=== PATIENT | male | born 1955 | race Caucasian/White ===

== ENCOUNTER 2016-11-02 08:01 | Day surgery (SDC) | payer OTHER ==
[~2016-11-02 08:01] MED LIST: Pre Op ABX Message 1 EACH MISC MISCELLANE ONE
[2016-11-02 08:20] VITALS: TEMP 97.8
[2016-11-02] MEDS ORDERED: DEXAMETHASONE SOD PHOSPHATE 10 MG/ML 1 ML VIAL IV ONE (08:32)
[2016-11-02] MEDS ORDERED: MIDAZOLAM 2 MG/2 ML VIAL IV PRN (08:32)
[2016-11-02] MEDS ORDERED: SCOPOLAMINE 1.5MG/72HR PATCH TRANSDERM ONE (08:32)
[2016-11-02] MEDS ORDERED: ONDANSETRON 4 MG/2 ML VIAL IVP ONE (08:32)
[2016-11-02] MEDS ORDERED: LIDOCAINE 1% 20 ML VIAL (10MG/ML) FOR IV START INTRADERMA PRN (08:32)
[2016-11-02] MEDS ORDERED: HYDROmorphone 1 MG/ML 1 ML SYRINGE IVP PRN (08:32)
[2016-11-02] MEDS ORDERED: LACTATED RINGERS 1,000 ML IV SCH (08:32)
--- NOTE | 2016-11-02 08:59 | P.GSHP ---
History of Present Illness H&P Date: 11/02/16 Chief Complaint: Open wound status post drainage sebaceous cyst Patient is status post I&D of a sebaceous cyst on the posterior right shoulder. It has failed to close due to a large amount of wall of the sebaceous cyst and sebaceous material. - Constitutional Constitutional: Denies chills, Denies fever - EENT Eyes: denies blurred vision, denies pain Ears, nose, mouth and throat: Denies headache, Denies sore throat - Cardiovascular Cardiovascular: Denies chest pain, Denies edema, Denies orthopnea, Denies paroxysmal nocturnal dyspnea, Denies shortness of breath - Respiratory Respiratory: Reports cough, Denies hemoptysis - Gastrointestinal Gastrointestinal: Denies abdominal pain, Denies diarrhea, Denies nausea, Denies vomiting - Genitourinary (Female) Genitourinary: Denies dysuria, Denies hematuria - Genitourinary (Male) Genitourinary: Denies dysuria, Denies hematuria - Musculoskeletal Musculoskeletal: Denies myalgias - Integumentary Integumentary: Denies pruritus, Denies rash - Neurological Neurological: Denies numbness, Denies weakness - Psychiatric Psychiatric: Denies anxiety, Denies confusion, Denies depression, Denies hallucinations - Endocrine Endocrine: Denies fatigue, Denies weight change - Hematologic/Lymphatic Hematologic/Lymphatic: Denies easy bleeding, Denies easy bruising, Denies lymphedema - Allergic/Immunologic Allergic/Immunologic: Denies anaphylaxis, Denies angioedema, Denies urticaria Past Medical History Past Medical History: COPD Additional Past Medical History / Comment(s): neck abcess History of Any Multi-Drug Resistant Organisms: None Reported Past Surgical History: Orthopedic Surgery Additional Past Surgical History / Comment(s): left ankle orif,colonoscopy Past Anesthesia/Blood Transfusion Reactions: No Reported Reaction Past Psychological History: No Psychological Hx Reported Smoking Status: Current some day smoker Past Alcohol Use History: None Reported Past Drug Use History: None Reported Medications and Allergies Home Medications Medication Instructions Recorded Confirmed Type Albuterol Inhaler [Ventolin Hfa 1 - 2 puff INHALATION Q6HR PRN 09/16/16 History Inhaler] Albuterol Sulfate [Accuneb] 0.083 mg INHALATION BID 09/16/16 11/02/16 History Aspirin EC [Ecotrin Low Dose] 81 mg PO DAILY 09/16/16 11/02/16 History Flunisolide [Aerospan] 1 puff INHALATION BID 09/16/16 11/02/16 History Ipratropium Dolliver [Atrovent Hfa] 2 puff INHALATION QID 09/16/16 11/02/16 History Ipratropium Dolliver [Ipratropium 2 sprays EA NOSTRIL BID 09/16/16 11/02/16 History Dolliver 0.03%] Loratadine [Claritin] 10 mg PO DAILY 09/16/16 11/02/16 History Methocarbamol [Robaxin] 750 mg PO QID 09/16/16 11/02/16 History Naproxen 500 mg PO Q12HR 09/16/16 11/02/16 History Zolpidem [Ambien] 5 mg PO HS PRN 09/16/16 11/02/16 History Allergies Allergy/AdvReac Type Severity Reaction Status Date / Time No Known Allergies Allergy Verified 11/02/16 08:27 Surgical - Exam Osteopathic Statement: *. No significant issues noted on an osteopathic structural exam other than those noted in the History and Physical/Consult. Vital Signs Temp Pulse Resp BP Pulse Ox 97.8 F 90 18 131/76 89 L 11/02/16 08:18 11/02/16 08:18 11/02/16 08:18 11/02/16 08:18 11/02/16 08:18 - General well developed, well nourished, no distress - Eyes normal ocular movement, no icteric - ENT no hearing loss, no congestion - Neck no masses, trachea midline - Respiratory normal respiratory effort, clear to auscultation - Abdomen Abdomen: soft, non tender, no guarding, no rigid, no rebound - Integumentary On the posterior right shoulder at the base of the neck is an open wound about 2.5 x 1 cm with a dry base. no rash, no abnormal pigmentation - Neurologic no disoriented, no combative - Psychiatric oriented to time, oriented to person, oriented to place, speech is normal, memory intact Assessment and Plan Plan: Patient has an open ulceration secondary to infected sebaceous cyst drainage. We've discussed with him the options. It has been refractory to simple wound measures and we will excise the entire thing for primary closure. He appears to understand the procedure and risks and agrees to proceed.
[2016-11-02] MEDS ORDERED: MIDAZOLAM 2 MG/2 ML VIAL ONE (09:09)
[2016-11-02] MEDS ORDERED: LIDOCAINE 1% INJ 10MG/ML (20 ML MDV) ONE (09:09)
[2016-11-02] MEDS ORDERED: PROPOFOL 10 MG/ML 20 ML VIAL IV ONE (09:09)
[2016-11-02] MEDS ORDERED: fentaNYL (PF) 50 MCG/ML 2 ML AMP ONE (09:09)
[2016-11-02] MEDS ORDERED: KETAMINE 10 MG/ML 20 ML VIAL ONE (09:09)
[2016-11-02] MEDS ORDERED: LIDOCAINE 1% INJ 10MG/ML (20 ML MDV) SQ ONE ×2 (09:26)
[2016-11-02] MEDS ORDERED: BUPIVACAIN-EPI 0.25%-1:200,000 30 ML VIAL SQ ONE (09:34)
--- NOTE | 2016-11-02 09:54 | P.PCN ---
Date of Procedure: 11/02/16 Preoperative Diagnosis: Refractory sebaceous cyst Postoperative Diagnosis: Same Procedure(s) Performed: Excision of sebaceous cyst Anesthesia: MAC Surgeon: Brian Sidhu Estimated Blood Loss (ml): 20 Pathology: none sent Condition: stable Disposition: PACU Indications for Procedure: Patient had an I&D of a sebaceous cyst and his family doctor's office. In spite of aggressive wound measures we have not been able to get this to heal up. Operative Findings: We were able to excise the entire sebaceous cyst sac and surrounding inflammatory tissues Description of Procedure: With the patient lateral position, under benefit of IV sedation, we prepped and draped in standard fashion. We anesthetized with 1% lidocaine. We made an elliptical incision about 5 x 2.5 cm and about 0.8 cm in depth. We excised the entire for inflammatory process. We achieved hemostasis with electrocautery. We closed the wound with interrupted vertical mattress sutures with 4-0 nylon. Sterile dressings were applied. The patient tolerated the procedure well and was taken recovery area in stable vision.
[2016-11-02 10:30] VITALS: BP 108/71; PULSE 87; RESP 20
== END 2016-11-02 10:34 | disposition home or self-care (01) ==
LOC: OR 08:01
PROVIDERS: ATTEND Thoracic Surgery (Cardiothoracic Vascular Surgery)
DX: L72.3 Sebaceous cyst (principal); J44.9 Chronic obstructive pulmonary disease, unspecified; Z79.82 Long term (current) use of aspirin; Z79.51 Long term (current) use of inhaled steroids; Z79.899 Other long term (current) drug therapy; Z99.81 Dependence on supplemental oxygen
CPT/HCPCS: 11406; J2250; J2001; J3010; J2704

== ENCOUNTER → 2017-01-15 | Outpatient (CLI) | payer OTHER ==
--- NOTE | 2017-01-16 09:00 | CT ---
EXAMINATION TYPE: CT abdomen pelvis w con DATE OF EXAM: 01/15/2017 COMPARISON: NONE HISTORY: Diarrhea and blood in stool x2 months. CT DLP: 453.7 mGycm Automated exposure control for dose reduction was used. CONTRAST: CT scan of the abdomen pelvis is performed with IV Contrast, patient injected with 100 mL of Omnipaqu e 300. FINDINGS- LUNG BASES- No significant abnormality is appreciated. Correlate for COPD LIVER/GB- No gross abnormality is appreciated. PANCREAS-in the peripancreatic region there is a low-attenuation 2 cm lesion with peripheral calcific ation. This could relate to mesenteric or pancreatic cyst. Appears separate from the vasculature alth ough a thrombosed aneurysm not excluded. SPLEEN- No gross abnormality is seen. ADRENALS- No gross abnormality is seen. KIDNEYS/BLADDER- no hydronephrosis or nephrolithiasis. Less than 1 cm hypodense lesion right kidney t oo small to characterize but likely related to simple cyst. Bladder wall thickened.. BOWEL- no bowel dilatation. Normal appendix. Diverticulosis of the colon. Mild wall thickening invo lving the transverse colon with associated with a mild colitis. LYMPH NODES- No greater than 1cm abdominal or pelvic lymph nodes are appreciated. OSSEOUS STRUCTURES-hypertrophic change of the spine seen. Disc bulging L4-L5 appears resulting canal stenosis. Left paracentral herniation not excluded. OTHER- prostate is prominent and appears to demonstrate areas of calcification. IMPRESSION- 1. Mild wall thickening transverse colon with no definite inflammatory change. This could related to incomplete distention rather than a mild colitis. Correlate clinically. If there is concern for mucos al lesion then consider direct visualization 2. Low density well-circumscribed lesion within the peripancreatic region measures 31 Houn[address]field unit s. Differential diagnosis would include a mesenteric mass or thrombosed aneurysm. Low density adenopa thy less likely consideration recommend follow-up MRI. 3. Disc bulging L4-L5 with possible herniation canal stenosis. 4. Bladder wall thickening correlate for mild chronic cystitis
== END | disposition home or self-care (01) ==
LOC: RADCTMAIN 17:01
PROVIDERS: ATTEND Family Medicine
DX: K86.89 Other specified diseases of pancreas (principal); N32.89 Other specified disorders of bladder; K63.89 Other specified diseases of intestine
CPT/HCPCS: 74177; Q9967

== ENCOUNTER 2017-01-28 10:37 | Day surgery (SDC) | payer OTHER ==
[2017-01-28] MEDS ORDERED: LACTATED RINGERS 1,000 ML IV SCH (11:24)
[2017-01-28 11:31] VITALS: RESP 16; TEMP 97.7
[2017-01-28] MEDS ORDERED: LIDOCAINE 1% INJ 10MG/ML (20 ML MDV) ONE (11:50)
[2017-01-28] MEDS ORDERED: PROPOFOL 10 MG/ML 20 ML VIAL IV ONE (11:50)
--- NOTE | 2017-01-28 12:49 | P.PCN ---
Date of Procedure: 01/28/17 Preoperative Diagnosis: Postoperative Diagnosis: Procedure(s) Performed: Procedure: 1. Esophagogastroduodenoscopy and biopsy. 2. Colonoscopy and biopsy and polypectomy. Preoperative diagnosis: Diarrhea and blood in the stools. Postoperative diagnosis: 1. Small sliding hiatal hernia with LA grade A distal esophagitis. 2. Mild antral gastritis. 3. Sigmoid diverticulosis with no evidence of acute diverticulitis or strictures. 4. Sigmoid polyp snared but no large polyps or cancer.. Preparation: HalfLytely prep. Sedation: Was provided by anesthesia. Brief clinical history: The patient is a 61-year-old male who is scheduled for this evaluation because of onset of diarrhea within the last 2-3 months with finding of blood in his stools. This evaluation is to assess for inflammatory conditions or neoplasia. Procedure: With the patient on his left lateral decubitus position and after informed consent and adequate sedation, I passed the Olympus-GIF 160 video upper endoscope through the cricopharyngeus down the esophagus. GE junction was around 42-43 cm from the incisors and there was a small sliding hiatal hernia. The distal esophagus showed low-grade esophagitis but no strictures or Warner's esophagus. The endoscope was then passed into the stomach which was insufflated with air and inspected in detail including the retroflex view in the cardia. There was some mottling and erythema in the antrum but no ulcers or erosions. Pyloric channel, duodenal bulb, post bulbar area and descending duodenum appeared within normal limits. Because of his symptoms, I obtained biopsies from the duodenum, antrum and esophagus then the endoscope was withdrawn and I proceeded with the colonoscopy. Perianal area did not show any fissures or fistulas. There were no masses felt on digital rectal examination. The Olympus CFQ 160L video colonoscope was then inserted in the rectum in the usual fashion and advanced to the cecum. There were several diverticular orifices seen scattered in the sigmoid with no evidence of acute diverticulitis or strictures. There was a 1.5 cm polyp in the sigmoid which was snared and retrieved by suction but there were no large polyps or cancer. The mucosa appeared healthy. I obtained biopsies in the right colon to rule out microscopic colitis. I retroflexed the endoscope in the rectum before the endoscope was withdrawn. Low-grade internal hemorrhoids were noted and there was no evidence of bleeding. The patient tolerated the procedure well. Plan: The patient was reassured. Will await pathology results. I anticipate repeating his colonoscopy in 3 years. Further plans will be made based on his course. I will keep you updated on his progress. Implants: Indications for Procedure: Operative Findings: Description of Procedure:
[2017-01-28 12:59] VITALS: BP 127/80; PULSE 83
== END 2017-01-28 13:18 | disposition home or self-care (01) ==
LOC: ORWHC2ENDO 10:37
DX: D12.5 Benign neoplasm of sigmoid colon (principal); K29.50 Unspecified chronic gastritis without bleeding; K20.9 Esophagitis, unspecified; K44.9 Diaphragmatic hernia without obstruction or gangrene; K64.8 Other hemorrhoids; K57.30 Diverticulosis of large intestine without perforation or abscess without bleeding; J44.9 Chronic obstructive pulmonary disease, unspecified; Z72.0 Tobacco use; Z79.82 Long term (current) use of aspirin; Z79.1 Long term (current) use of non-steroidal anti-inflammatories (NSAID); Z79.899 Other long term (current) drug therapy
CPT/HCPCS: 88305; 88342; 45380; 45385; 43239; J2001; J2704

== ENCOUNTER → 2017-02-25 | Outpatient (CLI) | payer OTHER ==
--- NOTE | 2017-02-25 16:25 | MR ---
MR abdomen with and without contrast HISTORY: Abnormal CT abdomen pelvis, abdominal mass Multiplanar multisequence and postcontrast images through the abdomen following 15 cc MultiHance IV Correlation to CT scan 01/15/2017 The low-attenuation mass with peripheral calcification seen on the CT scan is again noted adjacent to the body of the pancreas as well as splenic artery and vein, medial to the lesser curve of the stoma ch. The lesion measures approximately 2.7 cm. The lesion shows intermediate signal on T1-weighted hero ges, T2-weighted images. There is no abnormal enhancement following contrast administration. The liver is at the upper limit of normal for size. Signal drop on out of phase images suggests under lying fatty infiltration. There is no ascites. Small cortical cysts are associated with the right kid abril. There is no hydronephrosis bilaterally. Adrenal glands are unremarkable. Spleen is normal. The p ancreas shows no mass or ductal dilatation. Gallbladder is normal. No retroperitoneal adenopathy. Aor ta shows normal caliber. IMPRESSION: There is no enhancement of the previously described mass within the abdomen to suggest an eurysm. Differential diagnostic considerations include mesenteric cyst, thrombosed aneurysm or possi valentino pancreatic pseudocyst.
== END ==
LOC: RADMRIMAIN 14:51
PROVIDERS: ATTEND Internal Medicine Hematology & Oncology
DX: E16.9 Disorder of pancreatic internal secretion, unspecified (principal)
CPT/HCPCS: 74183; A9577

== ENCOUNTER → 2017-03-22 | Outpatient (CLI) | payer OTHER ==
--- NOTE | 2017-03-23 07:21 | US ---
EXAMINATION TYPE: US bladder DATE OF EXAM: 03/22/2017 COMPARISON: NONE CLINICAL HISTORY: R35.1 Nocturia. Patient gets up 3-4 times at night EXAM MEASUREMENTS: Post Void Residual Volume: 9 mL Color Doppler performed to assess ureteral jets. Bilateral Jets seen: Yes Normal Post Void Residual (less than 50ml): yes No evidence of bladder wall thickening. Mild prostate gland enlargement. IMPRESSION: No distinct abnormality of the urinary bladder. Mild prostate glandular enlargement.
== END | disposition home or self-care (01) ==
LOC: RADUSWWP 16:20
PROVIDERS: ATTEND Family Medicine
DX: N40.0 Benign prostatic hyperplasia without lower urinary tract symptoms (principal)
CPT/HCPCS: 76857

== ENCOUNTER → 2018-12-13 | Outpatient (CLI) | payer OTHER ==
--- NOTE | 2018-12-13 13:04 | EST ---
EXERCISE STRESS DATE OF SERVICE: 12/13/2018 AGE: 63 SEX: Male HT: 71 WT: 155 PROTOCOL: Jaden STAGE: I DURATION OF EXERCISE: 2 minutes HEART RATE REST: 80 BLOOD PRESSURE REST: 136/87 MAXIMUM HEART RATE ACHIEVED: 115 MAXIMUM BLOOD PRESSURE: 185/94 85% MPHR: 135 100% MPHR: 159 METS: 2.4 INDICATIONS: Chest pain, shortness of breath. CLINICAL INFORMATION: Patient was exercised for a total period of 2 minutes. The test was terminated because patient got short of breath. Peak heart rate of 115 was achieved, which is equivalent to less than 75% of the age predicted heart rate. Resting EKG shows normal sinus rhythm with normal NJ interval and QRS duration and normal ST-T waves. No ST-segment depression suggestive of ischemia was noted. FINAL IMPRESSION: This exercise test is inconclusive to diagnose ischemia because patient exercised for less than 2 minutes. Peak heart rate of only [address]-segment change suggestive of ischemia was noted. MMODL / IJN: [id number] /
== END | disposition home or self-care (01) ==
LOC: RADNMMAIN 08:42
PROVIDERS: ATTEND Family Medicine
DX: R07.9 Chest pain, unspecified (principal)
CPT/HCPCS: 93017

== ENCOUNTER → 2019-05-09 | Outpatient (CLI) | payer OTHER ==
--- NOTE | 2019-05-09 16:13 | CT ---
EXAMINATION TYPE: CT chest wo con DATE OF EXAM: 05/09/2019 COMPARISON: None HISTORY: History of smoking, hemoptysis CT DLP: 335.9 mGycm. Automated Exposure Control for Dose Reduction was Utilized. TECHNIQUE: CT scan of the thorax is performed without IV contrast. FINDINGS: Lack of intravenous contrast could compromise sensitivity. LUNGS: Extensive centrilobular and paraseptal emphysematous changes are present. There is a soft tiss ue mass in the right lower lobe present on axial image #41 which show some associated spiculated aurelio in with extension is to the pleural surface, air bronchogram and soft tissue extending towards the ri ght hilum. The lesion measures approximately 3.5 x 1.1 x 2.2 cm. Apical bullous changes are present. There is no pleural effusion or pneumothorax seen. The tracheobronchial tree is patent. MEDIASTINUM: Lack of IV contrast is noted to limit evaluation for mediastinal and especially hilar ad enopathy. There are no definitive greater than 1 cm hilar or mediastinal lymph nodes. No cardiomega ly or pericardial effusion is seen. Prominence of the pulmonary artery could be due to pulmonary ana laura ry hypertension. There are some coronary artery calcification suspected. OTHER: Multilevel fibrosis in the thoracic spine. At the posterior margin of the pancreas is slightly cephalad along the region of the lesser curvature stomach there is a curvilinear focus of calcificat ion surrounding a soft tissue focus measuring approximately 2.6 cm in size. IMPRESSION: Findings suspicious for bronchogenic carcinoma. Extensive emphysematous change. Possible splenic artery aneurysm. Noncontrast exam. Coronary artery disease. Possible pulmonary artery hyperte nsion.
== END | disposition home or self-care (01) ==
LOC: RADCTMAIN 11:28
PROVIDERS: ATTEND Family Medicine
DX: I25.10 Atherosclerotic heart disease of native coronary artery without angina pectoris (principal); F17.210 Nicotine dependence, cigarettes, uncomplicated
CPT/HCPCS: 71250

== ENCOUNTER 2019-06-08 08:57 | Day surgery (SDC) | payer OTHER ==
[2019-06-08] MEDS ORDERED: ALPRAZolam 0.5 MG TAB PO STA (09:31)
[2019-06-08 09:41] LABS: Mean Platelet Volume 6.5; Platelet Count 219 k/uL (150-450)
[2019-06-08 09:52] VITALS: PULSE 91; TEMP 97.8
[2019-06-08 09:57] LABS: INR 0.8 (<1.2); Prothrombin Time 9.3 sec (9.0-12.0)
[2019-06-08 10:18] VITALS: RESP 20
[2019-06-08 10:28] VITALS: BP 119/72
--- NOTE | 2019-06-08 11:23 | CT ---
EXAMINATION TYPE: CT discontinued procedure DATE OF EXAM: 06/08/2019 COMPARISON: CT 05/09/2019 HISTORY: Lung mass CT DLP: 214 mGycm Automated exposure control for dose reduction was used. FINDINGS: Maximal barrier technique was utilized. The skin overlying a suitable path to the lesion in the right lower lobe was localized with CT and the overlying skin prepped and draped. Lidocaine used for local anesthesia. 25-gauge needle was advanced to the level of the mass and obstructed by the overlying ri b, underlying lesion not directly accessible. IMPRESSION: ATTEMPTED LUNG BIOPSY DESCRIBED. REPEAT CHEST CT AT SHORT INTERVAL TO ASSESS FOR REPEAT ATTEMPT.
== END 2019-06-08 10:55 | disposition home or self-care (01) ==
LOC: RADPROMAIN 08:57
PROVIDERS: ATTEND Internal Medicine Pulmonary Disease
DX: R91.8 Other nonspecific abnormal finding of lung field (principal)
CPT/HCPCS: 36415; 76380; 85049; 85610

== ENCOUNTER → 2019-06-09 | Outpatient (CLI) | payer OTHER ==
--- NOTE | 2019-06-13 11:14 | PE ---
Nuclear medicine PET/CT HISTORY: Solitary pulmonary nodule, initial Patient received 12.4 mCi F-18 FDG intravenously in delayed scanning was performed the skull base to the mid thighs. Localization and attenuation correction CT scan were performed. Correlation to prior chest CT 05/09/2019, CT abdomen pelvis 01/15/2017 Neck and chest: There is no cervical, supraclavicular, axillary or mediastinal adenopathy. Only mild uptake in the right hilum, SUV 1.9-2 which is essentially symmetric. Coronary artery calcification is noted. There is extensive emphysematous change within the lungs. The nodular density in the right lo wer lobe which extends to the pleural surface in is again seen shows a similar configuration, SUV 3.6 . There is some local abnormal soft tissue in the superior segment of the right lower lobe which is n ot seen on prior exam measuring approximately 1.7 cm., SUV 6.7. Mild hypermetabolic uptake is present associated with the abnormal soft tissue in the right lower lobe, SUV is. Some probable basilar atel ectatic changes are present. No evident pleural or pericardial effusion. ABDOMEN: There is no adrenal mass. No liver mass. No retroperitoneal adenopathy or suspicious hyperme tabolic uptake. There is no ascites. Prostate is remarkable for some associated calcification. Urinar y bladder shows a thickened wall and is not distended but shows some questionable nondependent lucenc y, correlate for possible history of instrumentation. No pelvic adenopathy. Osseous structures show no suspicious abnormality, no suspicious hypermetabolic uptake. IMPRESSION: There is abnormal uptake associated with the superior segment right lower lobe, abnormal density seen on prior CT which has changed somewhat in configuration as described. Hypermetabolic upt nadira at the site of patient's previously described wedge-shaped focus in the right lower lobe. Extensi ve emphysema.
== END ==
LOC: RADPETMAIN 14:54
PROVIDERS: ATTEND Internal Medicine Pulmonary Disease
DX: R91.1 Solitary pulmonary nodule (principal); J43.9 Emphysema, unspecified
CPT/HCPCS: 78815; A9552

== ENCOUNTER 2020-11-04 18:53 | Observation (INO) | payer OTHER ==
[2020-11-04 21:15] LABS: Basophils % (A) 1 %; Eosinophils # (A) 0.1 k/uL (0-0.7); Eosinophils % (A) 2 %; HCT 38.7 % (39.0-53.0); HGB 12.8 gm/dL (13.0-17.5); Lymphocytes # (A) 1.1 k/uL (1.0-4.8); Lymphocytes % (A) 17 %; MCH 30.7 pg (25.0-35.0); MCHC 33.1 g/dL (31.0-37.0); MCV 92.8 fL (80.0-100.0); Mean Platelet Volume 7.1; Monocytes # (A) 0.3 k/uL (0-1.0); Monocytes % (A) 5 %; Neutrophils # (A) 4.4 k/uL (1.3-7.7); Neutrophils % (A) 72 %; Platelet Count 223 k/uL (150-450); RBC 4.17 m/uL (4.30-5.90); RDW 12.5 % (11.5-15.5); WBC 6.1 k/uL (3.8-10.6)
[2020-11-04 21:23] LABS: ALT 16 U/L (4-49); AST 31 U/L (17-59); African American GFR (CKD) >90 (>60 ml/min/1.73 sqM); Albumin 4.6 g/dL (3.5-5.0); Alkaline Phosphatase 73 U/L (38-126); Anion Gap 10 mmol/L; Blood Urea Nitrogen 7 mg/dL (9-20); Calcium 9.3 mg/dL (8.4-10.2); Carbon Dioxide 29 mmol/L (22-30); Chloride 96 mmol/L (98-107); Glucose 96 mg/dL (74-99); INR 0.9 (<1.2); Non-African American GFR(CKD) >90 (>60 ml/min/1.73 sqM); Partial Thromboplastin Time 22.2 sec (22.0-30.0); Potassium 4.2 mmol/L (3.5-5.1); Prothrombin Time 9.6 sec (9.0-12.0); Sodium 135 mmol/L (137-145); Total Bilirubin 0.4 mg/dL (0.2-1.3); Total Protein 7.2 g/dL (6.3-8.2)
[2020-11-04] MEDS ORDERED: HYDROcodone/APAP 5-325MG 1 EACH TAB PO STA (21:49)
--- NOTE | 2020-11-04 21:53 | ED ---
General Adult HPI - General Chief complaint: Shortness of Breath Stated complaint: SOB Time Seen by Provider: 11/04/20 21:35 Source: patient, RN notes reviewed Mode of arrival: wheelchair Limitations: no limitations - History of Present Illness Initial comments: 65-year-old white male patient presents to the emergency room with shortness of breath 4 days, patient on home O2 at three quarters of a liter for COPD. Patient has a surgical history of plates and pins in his left ankle from fx 5 years ago. 14 days ago patient fell through a hole in the floor at home injuring his lower leg and ankle again. Patient has laceration/abrasion on the front of his left lower leg that is painful and oozing. States he thinks he broke his leg, painful to walk and bear weight and has been increasingly red and swollen. -: days(s) (4) Radiation: back, neck Severity scale (1-10): 8 Quality: other (throbbing, shooting) Consistency: constant Improves with: none Worsens with: movement Associated Symptoms: headaches, shortness of breath, weakness Treatments Prior to Arrival: other (home oxygen) - Related Data Home Medications Medication Instructions Recorded Confirmed Albuterol Inhaler (Mhu) [Ventolin 1 - 2 puff INHALATION Q6HR PRN 09/16/16 06/08/19 Hfa Inhaler] Albuterol Sulfate [Accuneb] 0.083 mg INHALATION BID 09/16/16 06/08/19 Aspirin EC [Ecotrin Low Dose] 81 mg PO DAILY 09/16/16 06/08/19 Ipratropium [place] [Atrovent Hfa] 2 puff INHALATION QID 09/16/16 06/08/19 methocarbamoL [Robaxin] 750 mg PO DAILY 09/16/16 06/08/19 Doxazosin [Cardura] 1 mg PO DAILY 06/01/19 06/08/19 Ibuprofen 1,600 mg PO DAILY 06/01/19 06/08/19 Salmeterol Xinafoate [Serevent 50 mcg IH BID 06/01/19 06/08/19 Diskus] buPROPion HCL [Wellbutrin XL] 150 mg PO DAILY 06/01/19 06/08/19 predniSONE 10 mg PO DAILY 06/01/19 06/08/19 Allergies Allergy/AdvReac Type Severity Reaction Status Date / Time No Known Allergies Allergy Verified 11/04/20 20:44 Review of Systems ROS Statement: Those systems with pertinent positive or pertinent negative responses have been documented in the HPI. ROS Other: All systems not noted in ROS Statement are negative. Past Medical History Past Medical History: COPD Additional Past Medical History / Comment(s): neck abcess, back pain History of Any Multi-Drug Resistant Organisms: None Reported Past Surgical History: Orthopedic Surgery Additional Past Surgical History / Comment(s): left ankle orif,colonoscopy, lj eduled for lung biopsy Past Anesthesia/Blood Transfusion Reactions: No Reported Reaction Past Psychological History: No Psychological Hx Reported Smoking Status: Former smoker Past Alcohol Use History: Daily Past Drug Use History: None Reported - Past Family History Mother Family Medical History: Cancer Additional Family Medical History / Comment(s): MOTHER HAD COLON CANCER General Exam Limitations: no limitations, physical limitation (limited mobility r/t left leg pain and swelling) General appearance: alert, in no apparent distress Head exam: Present: normocephalic, normal inspection Eye exam: Present: EOMI (left pupil dilated 8mm, right 2mm. Injury to left pupil from head injury years ago) Pupils: Present: unequal ENT exam: Present: normal exam, normal oropharynx, mucous membranes moist Neck exam: Present: normal inspection, full ROM. Absent: tenderness, meningismus, lymphadenopathy, thyromegaly Respiratory exam: Present: normal lung sounds bilaterally. Absent: respiratory distress, wheezes, rales, rhonchi, stridor, chest wall tenderness Cardiovascular Exam: Present: regular rate, normal rhythm, normal heart sounds. Absent: systolic murmur, diastolic murmur, rubs, gallop, clicks GI/Abdominal exam: Present: distended, normal bowel sounds, hernia (midline ). Absent: tenderness, guarding, rebound, rigid Extremities exam: Present: tenderness, normal capillary refill, pedal edema, joint swelling (left ankle swelling), other (left lower leg cellulitis, swelling and edema, approx 9cm abrasion with top 3cm open laceration with purulent drainage ). Absent: normal inspection Left Knee exam: Present: ecchymosis (purulent bakre drainage, cellulitis mid lower leg to foot) Lower Leg exam: Present: tenderness, swelling, laceration, erythema. Absent: deformity, Homans' sign Back exam: Present: normal inspection. Absent: tenderness, CVA tenderness (R), CVA tenderness (L) Neurological exam: Present: alert, oriented X3 Psychiatric exam: Present: normal affect, normal mood Skin exam: Present: warm, dry, intact, normal color. Absent: rash, cyanosis, diaphoretic Course Vital Signs 11/04/20 11/04/20 11/04/20 20:45 21:48 22:48 Temperature 98.1 F Pulse Rate 94 87 84 Respiratory 24 18 18 Rate Blood Pressure 155/90 142/101 156/96 O2 Sat by Pulse 98 94 L 94 L Oximetry 11/04/20 23:28 Temperature Pulse Rate 82 Respiratory 18 Rate Blood Pressure 113/78 O2 Sat by Pulse 94 L Oximetry Medical Decision Making - Medical Decision Making wound with purulent drainage to the left lower leg from fall 14 days ago, cellulitis from mid lower leg to foot WBC count 6.1, x-ray negative for fracture, hardware intact. Will admit patient for IV antibiotics to Dr. Warren. Chest x-ray shows heart normal size, minimal atelectasis to the left lower lobe. Troponin is negative at 0.012. - Lab Data Result diagrams: 11/04/20 21:58 11/04/20 21:58 Lab Results 11/04/20 11/04/20 11/04/20 Range/Units 20:55 20:55 20:55 WBC 6.1 (3.8-10.6) k/uL RBC 4.17 L (4.30-5.90) m/uL Hgb 12.8 L (13.0-17.5) gm/dL Hct 38.7 L (39.0-53.0) % MCV 92.8 (80.0-100.0) fL MCH 30.7 (25.0-35.0) pg MCHC 33.1 (31.0-37.0) g/dL RDW 12.5 (11.5-15.5) % Plt Count 223 (150-450) k/uL MPV 7.1 Neutrophils % 72 % Lymphocytes % 17 % Monocytes % 5 % Eosinophils % 2 % Basophils % 1 % Neutrophils # 4.4 (1.3-7.7) k/uL Lymphocytes # 1.1 (1.0-4.8) k/uL Monocytes # 0.3 (0-1.0) k/uL Eosinophils # 0.1 (0-0.7) k/uL Basophils # 0.0 (0-0.2) k/uL PT 9.6 (9.0-12.0) sec INR 0.9 (<1.2) APTT 22.2 (22.0-30.0) sec Sodium 135 L (137-145) mmol/L Potassium 4.2 (3.5-5.1) mmol/L Chloride 96 L (98-107) mmol/L Carbon Dioxide 29 (22-30) mmol/L Anion Gap 10 mmol/L BUN 7 L (9-20) mg/dL Creatinine 0.62 L (0.66-1.25) mg/dL Est GFR (CKD-EPI)AfAm >90 (>60 ml/min/1.73 sqM) Est GFR (CKD-EPI)NonAf >90 (>60 ml/min/1.73 sqM) Glucose 96 (74-99) mg/dL Plasma Lactic Acid Adrien (0.7-2.0) mmol/L Calcium 9.3 (8.4-10.2) mg/dL Magnesium (1.6-2.3) mg/dL Total Bilirubin 0.4 (0.2-1.3) mg/dL AST 31 (17-59) U/L ALT 16 (4-49) U/L Alkaline Phosphatase 73 (38-126) U/L Troponin I (0.000-0.034) ng/mL NT-Pro-B Natriuret Pep pg/mL Total Protein 7.2 (6.3-8.2) g/dL Albumin 4.6 (3.5-5.0) g/dL 11/04/20 11/04/20 11/04/20 Range/Units 20:55 20:55 21:58 WBC 5.9 (3.8-10.6) k/uL RBC 4.09 L (4.30-5.90) m/uL Hgb 12.8 L (13.0-17.5) gm/dL Hct 37.9 L (39.0-53.0) % MCV 92.6 (80.0-100.0) fL MCH 31.3 (25.0-35.0) pg MCHC 33.8 (31.0-37.0) g/dL RDW 12.5 (11.5-15.5) % Plt Count 221 (150-450) k/uL MPV 6.9 Neutrophils % 71 % Lymphocytes % 18 % Monocytes % 6 % Eosinophils % 3 % Basophils % 1 % Neutrophils # 4.2 (1.3-7.7) k/uL Lymphocytes # 1.1 (1.0-4.8) k/uL Monocytes # 0.3 (0-1.0) k/uL Eosinophils # 0.2 (0-0.7) k/uL Basophils # 0.0 (0-0.2) k/uL PT (9.0-12.0) sec INR (<1.2) APTT (22.0-30.0) sec Sodium (137-145) mmol/L Potassium (3.5-5.1) mmol/L Chloride (98-107) mmol/L Carbon Dioxide (22-30) mmol/L Anion Gap mmol/L BUN (9-20) mg/dL Creatinine (0.66-1.25) mg/dL Est GFR (CKD-EPI)AfAm (>60 ml/min/1.73 sqM) Est GFR (CKD-EPI)NonAf (>60 ml/min/1.73 sqM) Glucose (74-99) mg/dL Plasma Lactic Acid Adrien 1.5 (0.7-2.0) mmol/L Calcium (8.4-10.2) mg/dL Magnesium (1.6-2.3) mg/dL Total Bilirubin (0.2-1.3) mg/dL AST (17-59) U/L ALT (4-49) U/L Alkaline Phosphatase (38-126) U/L Troponin I <0.012 (0.000-0.034) ng/mL NT-Pro-B Natriuret Pep pg/mL Total Protein (6.3-8.2) g/dL Albumin (3.5-5.0) g/dL 11/04/20 11/04/20 11/04/20 Range/Units 21:58 21:58 21:58 WBC (3.8-10.6) k/uL RBC (4.30-5.90) m/uL Hgb (13.0-17.5) gm/dL Hct (39.0-53.0) % MCV (80.0-100.0) fL MCH (25.0-35.0) pg MCHC (31.0-37.0) g/dL RDW (11.5-15.5) % Plt Count (150-450) k/uL MPV Neutrophils % % Lymphocytes % % Monocytes % % Eosinophils % % Basophils % % Neutrophils # (1.3-7.7) k/uL Lymphocytes # (1.0-4.8) k/uL Monocytes # (0-1.0) k/uL Eosinophils # (0-0.7) k/uL Basophils # (0-0.2) k/uL PT 10.0 (9.0-12.0) sec INR 0.9 (<1.2) APTT 23.5 (22.0-30.0) sec Sodium 135 L (137-145) mmol/L Potassium 4.2 (3.5-5.1) mmol/L Chloride 97 L (98-107) mmol/L Carbon Dioxide 28 (22-30) mmol/L Anion Gap 10 mmol/L BUN 7 L (9-20) mg/dL Creatinine 0.61 L (0.66-1.25) mg/dL Est GFR (CKD-EPI)AfAm >90 (>60 ml/min/1.73 sqM) Est GFR (CKD-EPI)NonAf >90 (>60 ml/min/1.73 sqM) Glucose 90 (74-99) mg/dL Plasma Lactic Acid Adrien 1.4 (0.7-2.0) mmol/L Calcium 9.3 (8.4-10.2) mg/dL Magnesium 1.9 (1.6-2.3) mg/dL Total Bilirubin 0.4 (0.2-1.3) mg/dL AST 31 (17-59) U/L ALT 15 (4-49) U/L Alkaline Phosphatase 73 (38-126) U/L Troponin I (0.000-0.034) ng/mL NT-Pro-B Natriuret Pep pg/mL Total Protein 7.1 (6.3-8.2) g/dL Albumin 4.4 (3.5-5.0) g/dL 11/04/20 11/04/20 Range/Units 21:58 21:58 WBC (3.8-10.6) k/uL RBC (4.30-5.90) m/uL Hgb (13.0-17.5) gm/dL Hct (39.0-53.0) % MCV (80.0-100.0) fL MCH (25.0-35.0) pg MCHC (31.0-37.0) g/dL RDW (11.5-15.5) % Plt Count (150-450) k/uL MPV Neutrophils % % Lymphocytes % % Monocytes % % Eosinophils % % Basophils % % Neutrophils # (1.3-7.7) k/uL Lymphocytes # (1.0-4.8) k/uL Monocytes # (0-1.0) k/uL Eosinophils # (0-0.7) k/uL Basophils # (0-0.2) k/uL PT (9.0-12.0) sec INR (<1.2) APTT (22.0-30.0) sec Sodium (137-145) mmol/L Potassium (3.5-5.1) mmol/L Chloride (98-107) mmol/L Carbon Dioxide (22-30) mmol/L Anion Gap mmol/L BUN (9-20) mg/dL Creatinine (0.66-1.25) mg/dL Est GFR (CKD-EPI)AfAm (>60 ml/min/1.73 sqM) Est GFR (CKD-EPI)NonAf (>60 ml/min/1.73 sqM) Glucose (74-99) mg/dL Plasma Lactic Acid Adrien (0.7-2.0) mmol/L Calcium (8.4-10.2) mg/dL Magnesium (1.6-2.3) mg/dL Total Bilirubin (0.2-1.3) mg/dL AST (17-59) U/L ALT (4-49) U/L Alkaline Phosphatase (38-126) U/L Troponin I <0.012 (0.000-0.034) ng/mL NT-Pro-B Natriuret Pep 123 pg/mL Total Protein (6.3-8.2) g/dL Albumin (3.5-5.0) g/dL - EKG Data EKG shows normal: sinus rhythm, intervals (Ventricular rate of 89, ND interval 0.13, QRS 0.10, QTC 0.479) Disposition Clinical Impression: Cellulitis of leg, left, COPD exacerbation Disposition: ADMITTED IP TO THIS HOSP Condition: Fair Referrals: Sunil Warren MD [Primary Care Provider] - 1-2 days Decision Date: 11/04/20 Decision Time: 23:16
[2020-11-04 22:08] LABS: Basophils % (A) 1 %; Eosinophils # (A) 0.2 k/uL (0-0.7); Eosinophils % (A) 3 %; HCT 37.9 % (39.0-53.0); HGB 12.8 gm/dL (13.0-17.5); Lymphocytes # (A) 1.1 k/uL (1.0-4.8); Lymphocytes % (A) 18 %; MCH 31.3 pg (25.0-35.0); MCHC 33.8 g/dL (31.0-37.0); MCV 92.6 fL (80.0-100.0); Mean Platelet Volume 6.9; Monocytes # (A) 0.3 k/uL (0-1.0); Monocytes % (A) 6 %; Neutrophils # (A) 4.2 k/uL (1.3-7.7); Neutrophils % (A) 71 %; Platelet Count 221 k/uL (150-450); RBC 4.09 m/uL (4.30-5.90); RDW 12.5 % (11.5-15.5); WBC 5.9 k/uL (3.8-10.6)
[2020-11-04 22:17] LABS: ALT 15 U/L (4-49); AST 31 U/L (17-59); African American GFR (CKD) >90 (>60 ml/min/1.73 sqM); Albumin 4.4 g/dL (3.5-5.0); Alkaline Phosphatase 73 U/L (38-126); Anion Gap 10 mmol/L; Blood Urea Nitrogen 7 mg/dL (9-20); Calcium 9.3 mg/dL (8.4-10.2); Carbon Dioxide 28 mmol/L (22-30); Chloride 97 mmol/L (98-107); Glucose 90 mg/dL (74-99); Magnesium 1.9 mg/dL (1.6-2.3); Non-African American GFR(CKD) >90 (>60 ml/min/1.73 sqM); Potassium 4.2 mmol/L (3.5-5.1); Sodium 135 mmol/L (137-145); Total Bilirubin 0.4 mg/dL (0.2-1.3); Total Protein 7.1 g/dL (6.3-8.2)
[2020-11-04 22:28] LABS: INR 0.9 (<1.2); Partial Thromboplastin Time 23.5 sec (22.0-30.0)
--- NOTE | 2020-11-04 22:29 | XR ---
EXAMINATION TYPE: XR chest 2V DATE OF EXAM: 11/04/2020 COMPARISON: NONE HISTORY: Short of breath TECHNIQUE: 2 views FINDINGS: There is some mild pleural reaction and linear density at the left lung base. The right sylvia g is fairly clear. There is no heart failure. Heart and mediastinum are normal. There are no hilar ma sses. IMPRESSION: Minimal pleural reaction and subsegmental atelectasis left lung base. Normal heart.
--- NOTE | 2020-11-04 22:30 | XR ---
EXAMINATION TYPE: XR ankle complete LT DATE OF EXAM: 11/04/2020 COMPARISON: 11/14/2014 HISTORY: Ankle pain TECHNIQUE: 3 views FINDINGS: There is plate with screws fixing the distal fibula. There are 2 screws fixing the medial m alleolus. Ankle mortise is anatomic. There is mild soft tissue swelling around the ankle. IMPRESSION: There is evidence of old trauma. No acute fracture seen. There is satisfactory healing co mpared to old exam.
--- NOTE | 2020-11-04 22:31 | XR ---
EXAMINATION TYPE: XR tibia fibula LT DATE OF EXAM: 11/04/2020 COMPARISON: NONE HISTORY: Ankle pain. Leg pain TECHNIQUE: 2 views FINDINGS: Tibia and fibula appear intact. There is evidence of old healed fracture of the distal tibi a and fibula. Ankle mortise is anatomic. Knee joint is anatomic. IMPRESSION: No acute abnormality of the left tibia and fibula.
[2020-11-04] MEDS ORDERED: HYDROcodone/APAP 5-325MG 1 EACH TAB PO PRN (23:25)
[2020-11-04] MEDS ORDERED: ACETAMINOPHEN TAB 325 MG TAB PO PRN (23:25)
[2020-11-04] MEDS ORDERED: NALOXONE 0.4 MG/ML 1 ML VIAL IV PRN (23:25)
[2020-11-04] MEDS: CLINDAMYCIN 600 MG in DEXTROSE 5% IN WATER 50 ML IVPB SCH ×2 (23:58)
[2020-11-05] MEDS: CLINDAMYCIN 600 MG in DEXTROSE 5% IN WATER 50 ML IVPB SCH ×6 (09:29→23:52)
[2020-11-05] MEDS ORDERED: IPRATROPIUM 0.5 MG/2.5 ML NEBU INHALATION PRN (11:31)
[2020-11-05] MEDS ORDERED: ALBUTEROL NEBULIZED 2.5 MG/3 ML INHALATION PRN (11:31)
[2020-11-05] MEDS ORDERED: IPRATROPIUM-ALBUTEROL 3 ML NEB INHALATION PRN (11:37)
[2020-11-05] MEDS: buPROPion SR 150 MG TABLET.ER PO SCH (20:41)
[2020-11-05] MEDS: HYDROcodone/APAP 7.5-325MG 1 EACH TAB PO PRN (20:43)
--- NOTE | 2020-11-05 23:27 | HP ---
HISTORY AND PHYSICAL CHIEF COMPLAINT: Infected laceration, left lower leg. HISTORY OF PRESENT ILLNESS: This is another admission for this 65-year-old white male who has a longstanding history of severe COPD. He sustained a superficial laceration on the left lower leg which became infected, and he came to the emergency room. Other than that, he has been stable. His COVID swab was negative. REVIEW OF SYSTEMS: He complains of a lot of pain in the neck where he has arthritis with a poor range of motion. He has had no headaches, chest pain, shortness of breath, abdominal pain, fever, chills, etc. Past medical history, family history, and personal and social histories reveal that he is on Lasix 40 mg a day, Singulair 10 mg once a day, ProAir 2 puffs q.i.d. p.r.n., Symbicort 160/4.5 two puffs twice a day, trazodone 50 mg at bedtime, prednisone 10 mg once a day, baclofen 20 mg 4 times a day, ibuprofen 800 mg 4 times a day, doxazosin 1 mg each day, omeprazole 20 mg twice a day, vitamin D, and a nebulizer with albuterol and ipratropium bromide. He uses oxygen at home as well. PHYSICAL EXAMINATION: Blood pressure is 106/68 with a pulse of 84, respirations of 35. He is afebrile. Head, ears, eyes, nose, mouth and throat were normal and neck veins were not distended. Chest demonstrated increased AP diameter with poor breath sounds. Cardiac exam demonstrates sinus rhythm and no murmurs or extra sounds. Abdomen was soft and nontender. Extremities were normal except for a superficial laceration along the outside of the left lower leg with cellulitis. Pulses were good. Neurologically he is intact. He is admitted to the hospital with the diagnoses: 1. Cellulitis of the left leg secondary to laceration. 2. Chronic obstructive pulmonary disease. 3. Cervical spine arthritis. PLAN: 1. Bedrest. 2. IV fluids. 3. IV antibiotics. 4. Updrafts and analgesics for his neck pain. MMODL / IJN: [id number] /
--- NOTE | 2020-11-05 23:31 | PN ---
PROGRESS NOTE CHIEF COMPLAINT: Cellulitis and secondary wound infection of the left lower leg. HISTORY OF PRESENT ILLNESS: This gentleman is doing better. Pain in the leg has improved. The redness is much improved. He is still short of breath and still complaining of his arthritic neck pain. PHYSICAL EXAMINATION: Neck is very stiff with poor range of motion. Chest demonstrates decreased breath sounds. The cardiac exam is normal. The cellulitis in the left lateral lower leg is much improved. IMPRESSION: Infected wound in the left lower leg and chronic obstructive pulmonary disease. PLAN: Continue with IV fluids, antibiotics and elevation. MMODL / IJN: [id number] /
[2020-11-06] MEDS ORDERED: PANTOPRAZOLE 40 MG TABLET PO SCH (07:30)
[2020-11-06] MEDS: HYDROcodone/APAP 7.5-325MG 1 EACH TAB PO PRN (08:32)
[2020-11-06] MEDS: buPROPion SR 150 MG TABLET.ER PO SCH (08:32)
[2020-11-06] MEDS ORDERED: MONTELUKAST 10 MG TAB PO SCH (09:00)
[2020-11-06] MEDS: CLINDAMYCIN 600 MG in DEXTROSE 5% IN WATER 50 ML IVPB SCH ×2 (09:22)
[2020-11-06 11:59] VITALS: BP 124/83; PULSE 87; RESP 17; TEMP 98.3
[2020-11-06] MEDS ORDERED: CLINDAMYCIN 150 MG CAP PO STA (12:07)
--- NOTE | 2020-11-06 23:51 | DS ---
DISCHARGE SUMMARY CHIEF COMPLAINT: Infected laceration of left lower leg and COPD. HISTORY OF PRESENT ILLNESS AND PHYSICAL EXAMINATION: Details of this man's history and physical can be found in the initial workup. LABORATORY STUDIES: While he was in the hospital, he had laboratory studies, details of which can be found in the laboratory section of his chart. COURSE IN THE HOSPITAL: After admission he was placed on bedrest, started on intravenous fluids and IV antibiotics and the cellulitis improved quite quickly. It was felt that he could be discharged on the . He will go home on his usual activity and diet and medications and he will be on an oral antibiotic. To be followed up in the office in a day or 2. FINAL DIAGNOSES: 1. Cellulitis of the left lower leg. 2. Chronic obstructive pulmonary disease. 3. Cervical spondylosis. OPERATIONS: 1. None. CONSULTATION: None. He is improved. MMBRIAN / LAURA: [id number] /
== END 2020-11-06 13:15 | disposition home or self-care (01) ==
LOC: EC 18:53 → 6NMEDSUR 22:10 → 1SOBS 11-05 07:50 → 5NMEDONC 11-05 16:40
PROVIDERS: ADMIT Family Medicine; ATTEND Family Medicine
DX: L03.116 Cellulitis of left lower limb (principal); J44.1 Chronic obstructive pulmonary disease with (acute) exacerbation; M47.812 Spondylosis without myelopathy or radiculopathy, cervical region; S81.812A Laceration without foreign body, left lower leg, initial encounter; Z20.822 Contact with and (suspected) exposure to COVID-19; Z79.899 Other long term (current) drug therapy; Z79.51 Long term (current) use of inhaled steroids; Z79.1 Long term (current) use of non-steroidal anti-inflammatories (NSAID); Z79.82 Long term (current) use of aspirin; Z87.891 Personal history of nicotine dependence; Z80.0 Family history of malignant neoplasm of digestive organs
CPT/HCPCS: 96365; 99285; 36415; 94640; 93005; 83880; 80053; 83605; 83735; 84484; 85025; 85610; 85730; 87070; 87205; 87635; 73590; 73610; 71046; G0378 ×3; S0106 ×2

== ENCOUNTER 2021-11-20 15:46 | Observation (INO) | payer OTHER ==
[2021-11-20 16:57] LABS: ALT 24 U/L (4-49); AST 24 U/L (17-59); African American GFR (CKD) >90 (>60 ml/min/1.73 sqM); Albumin 4.2 g/dL (3.5-5.0); Alkaline Phosphatase 78 U/L (38-126); Anion Gap 6 mmol/L; Blood Urea Nitrogen 16 mg/dL (9-20); Calcium 9.1 mg/dL (8.4-10.2); Carbon Dioxide 34 mmol/L (22-30); Chloride 100 mmol/L (98-107); Glucose 103 mg/dL (74-99); Magnesium 1.8 mg/dL (1.6-2.3); Non-African American GFR(CKD) 87 (>60 ml/min/1.73 sqM); Potassium 4.5 mmol/L (3.5-5.1); Sodium 140 mmol/L (137-145); Total Bilirubin 0.5 mg/dL (0.2-1.3); Total Protein 7.1 g/dL (6.3-8.2)
--- NOTE | 2021-11-20 17:04 | XR ---
EXAMINATION TYPE: XR chest 2V DATE OF EXAM: 11/20/2021 COMPARISON: X-ray dated 11/04/2020 HISTORY: Chest pain TECHNIQUE: Frontal and lateral views of the chest are obtained. FINDINGS: Left basal pulmonary atelectasis, slightly more prominent compared to the previous x-ray. Subtle infi ltration is seen in the right mid and lower lung zones with slightly congested pulmonary vasculature, please correlate clinically for mild pulmonary edema rather than infection. Suspected subtle fibrotic changes seen in the left lung apex, appreciated previously. No gross cardio megaly. No sizable pleural effusion or definite pneumothorax. No gross aggressive bone lesion. IMPRESSION: Mild pulmonary edema versus infection as described above, please correlate clinically.
[2021-11-20 17:10] LABS: Basophils % (A) 0 %; Eosinophils % (A) 0 %; HCT 34.9 % (39.0-53.0); HGB 11.3 gm/dL (13.0-17.5); Hypochromasia Slight; Lymphocytes # (A) 0.4 k/uL (1.0-4.8); Lymphocytes % (A) 6 %; MCH 28.6 pg (25.0-35.0); MCHC 32.4 g/dL (31.0-37.0); MCV 88.3 fL (80.0-100.0); Mean Platelet Volume 7.5; Monocytes # (A) 0.4 k/uL (0-1.0); Monocytes % (A) 5 %; Neutrophils # (A) 5.9 k/uL (1.3-7.7); Neutrophils % (A) 86 %; Platelet Count 241 k/uL (150-450); RBC 3.95 m/uL (4.30-5.90); RDW 14.5 % (11.5-15.5); WBC 6.8 k/uL (3.8-10.6)
[2021-11-20 17:31] LABS: INR 0.9 (<1.2); Prothrombin Time 9.7 sec (9.0-12.0)
[2021-11-20] MEDS ORDERED: KETOROLAC 15 MG/ML 1 ML VIAL IVP STA ×2 (18:32→19:20)
--- NOTE | 2021-11-20 18:40 | ED ---
Chest Pain HPI - General Chief Complaint: Chest Pain Stated Complaint: Chest pain Time Seen by Provider: 11/20/21 18:01 Source: patient, RN notes reviewed Mode of arrival: ambulatory Limitations: no limitations - History of Present Illness Initial Comments: 66-year-old male came in today for evaluation of right upper quadrant and right anterior lower chest discomfort. He states is burning in nature gets worse with upright he has a chronic cough has COPD. No reports of fevers chills or sweats he is she was hypoxemic upon arrival but he did not have his home oxygen on at the time. He's had the pain for quite a while he states is somewhat worse today. Denies any trauma. No nausea no vomiting no diarrhea. MD Complaint: chest pain, other - Related Data Home Medications Medication Instructions Recorded Confirmed Ipratropium [place] [Atrovent Hfa] 2 puff INHALATION RT-QID 09/16/16 11/20/21 Albuterol Nebulized [Ventolin 2.5 mg INHALATION RT-QID PRN 11/04/20 11/20/21 Nebulized] Albuterol Sulfate [Proair Hfa] 2 puff INHALATION RT-BID PRN 11/04/20 11/20/21 Ergocalciferol (Vitamin D2) 1,250 mcg PO SAPP 11/04/20 11/20/21 [Drisdol (50,000 Iu)] Ipratropium Nebulized [Atrovent 0.5 mg INHALATION QID PRN 11/04/20 11/20/21 Nebulized 0.2 MG/ML] Montelukast Sodium [Singulair] 10 mg PO DAILY 11/04/20 11/20/21 Omeprazole 20 mg PO DAILY 11/04/20 11/20/21 buPROPion HCL [buPROPion HCL SR] 150 mg PO BID 11/04/20 11/20/21 Budesonide/Formoterol Fumarate 2 puff INHALATION RT-BID 11/20/21 11/20/21 [Symbicort 160-4.5 Mcg Inhaler] Doxazosin [Cardura] 1 mg PO HS 11/20/21 11/20/21 Furosemide [Lasix] 40 mg PO DAILY 11/20/21 11/20/21 HYDROcodone/APAP 10-325MG [[place] 1 tab PO TID PRN 11/20/21 11/20/21 10-325] Ibuprofen [Motrin] 800 mg PO QID PRN 11/20/21 11/20/21 predniSONE 10 mg PO DAILY 11/20/21 11/20/21 traZODone HCL [Desyrel] 50 mg PO HS PRN 11/20/21 11/20/21 Allergies Allergy/AdvReac Type Severity Reaction Status Date / Time No Known Allergies Allergy Verified 11/20/21 21:22 Review of Systems ROS Statement: Those systems with pertinent positive or pertinent negative responses have been documented in the HPI. ROS Other: All systems not noted in ROS Statement are negative. EKG Findings - EKG Results: EKG: interpreted by ERMD, sinus rhythm (Sinus rhythm rate 96 NM interval 141 QRS duration 104 QT/QTC 340/401 incomplete right bundle-branch block pattern nonspecific ST configuration) Past Medical History Past Medical History: COPD, Pneumonia Additional Past Medical History / Comment(s): Home oxygen at 3-4L?[place] ATC, bronchitis, R lung lesion/pt states attempted to biopsy but failed, chronic cervical/lumbar back pain, R upper quadrant "lump", neck abscesses, hiatal hernia, gastritis, diverticular dx, benign colon polyp History of Any Multi-Drug Resistant Organisms: None Reported Past Surgical History: Orthopedic Surgery Additional Past Surgical History / Comment(s): Attempted L lung bx/failed per pt, EGD, colonoscopies/benign polypectomy, R upper shoulder I&D sebacceous cyst., L ankle fx with ORIF/hardware. Past Anesthesia/Blood Transfusion Reactions: No Reported Reaction Past Psychological History: No Psychological Hx Reported Smoking Status: Former smoker Past Alcohol Use History: None Reported Past Drug Use History: None Reported - Past Family History Mother Family Medical History: Cancer Additional Family Medical History / Comment(s): Mother had metastatic cancer, primary unknown to pt. Father Family Medical History: Cancer Additional Family Medical History / Comment(s): Colon cancer. General Exam - General Exam Comments Initial Comments: This a well-developed well-nourished awake alert oriented times 3 male Limitations: no limitations General appearance: alert, in no apparent distress Head exam: Present: atraumatic, normocephalic, normal inspection Eye exam: Present: normal appearance, PERRL, EOMI. Absent: scleral icterus, conjunctival injection, periorbital swelling ENT exam: Present: normal exam, mucous membranes moist Neck exam: Present: normal inspection. Absent: tenderness, meningismus, lymphadenopathy Respiratory exam: Present: normal lung sounds bilaterally. Absent: respiratory distress, wheezes, rales, rhonchi, stridor Cardiovascular Exam: Present: regular rate, normal rhythm, normal heart sounds. Absent: systolic murmur, diastolic murmur, rubs, gallop, clicks GI/Abdominal exam: Present: soft, tenderness (Tennis palpation of the right upper quadrant no overt guarding rebound masses or bruits), normal bowel sounds. Absent: distended, guarding, rebound, rigid Extremities exam: Present: normal inspection, full ROM, normal capillary refill. Absent: tenderness, pedal edema, joint swelling, calf tenderness Back exam: Present: normal inspection Neurological exam: Present: alert, oriented X3, CN II-XII intact Psychiatric exam: Present: normal affect, normal mood Skin exam: Present: warm, dry, intact, normal color. Absent: rash Course Vital Signs 11/20/21 11/20/21 11/20/21 15:50 16:37 18:22 Temperature 96.8 F L Pulse Rate 111 H 95 95 Respiratory 26 H 18 18 Rate Blood Pressure 148/90 126/81 129/86 O2 Sat by Pulse 85 L 95 95 Oximetry 11/20/21 22:26 Temperature Pulse Rate 81 Respiratory 18 Rate Blood Pressure 135/82 O2 Sat by Pulse 96 Oximetry - Reevaluation(s) Reevaluation #1: 11/20/21 22:48 I did reevaluate patient on multiple occasions he still having intermittent episodes of burning right lower chest and right upper quadrant area pain ultrasound was negative for acute processes as well as the CAT scan. Concern for atypical presentation of cardiac disease Disposition Clinical Impression: Atypical chest pain, Abdominal pain Disposition: ADMITTED IP TO THIS [facility] Condition: Fair Referrals: Sunil Warren MD [Primary Care Provider] - 1-2 days Decision Date: 11/20/21 Decision Time: 22:20
--- NOTE | 2021-11-20 19:59 | US ---
EXAMINATION TYPE: US abdomen limited DATE OF EXAM: 11/20/2021 COMPARISON: CT 2017 CLINICAL HISTORY: Abdominal pain. Right sided pain EXAM MEASUREMENTS: Liver Length: 18.8 cm Gallbladder Wall: 0.19 cm CBD: 0.37 cm Right Kidney: 11.2 x 5.5 x 5.7 cm Pancreas: Obscured by bowel gas Liver: Increased attenuation, decreased visualization of vessels suggestive of fatty infiltrate Gallbladder: Limited visualization due to patient body habitus; no obvious abnormality seen Evidence for sonographic Meehan's sign: no CBD: 3.7 mm caliber; wnl Right Kidney: Echogenic focus with twinkle artifact measuring 0.8 cm IMPRESSION: No acute process.
--- NOTE | 2021-11-20 21:55 | CT ---
EXAMINATION TYPE: CT abdomen pelvis w con DATE OF EXAM: 11/20/2021 COMPARISON: 06/09/2019 HISTORY: 66M ABD PAIN [address] DLP: 1761.8 mGycm, Automated Exposure Control for Dose Reduction was Utilized. CONTRAST: CT scan of the abdomen and pelvis is performed with oral and with IV Contrast, patient inje cted with 100ml mL of Isovue 300. FINDINGS: LUNG BASES: No significant abnormality is appreciated. LIVER/GB: No significant abnormality is appreciated. PANCREAS: No significant abnormality is seen. SPLEEN: No significant abnormality is seen. ADRENALS: No significant abnormality is seen. KIDNEYS: No significant abnormality is seen. BOWEL: No significant abnormality is seen. PROSTATE/SEMINAL VESICLES: No gross abnormality seen. LYMPH NODES: No greater than 1cm abdominal or pelvic lymph nodes are appreciated. OSSEOUS STRUCTURES: No significant abnormality is seen. OTHER: No significant additional abnormality is seen. IMPRESSION: No significant acute finding is seen to account for patient's clinical symptoms.
[2021-11-20] MEDS ORDERED: ACETAMINOPHEN TAB 325 MG TAB PO PRN (22:50)
[2021-11-20] MEDS ORDERED: ONDANSETRON 4 MG/2 ML VIAL IVP PRN (22:50)
[2021-11-20] MEDS ORDERED: NALOXONE 0.4 MG/ML 1 ML VIAL IV PRN (22:50)
[2021-11-20] MEDS ORDERED: HYDROcodone/APAP 10-325MG 1 EACH TAB PO PRN (22:52)
[2021-11-20] MEDS ORDERED: traZODone HCL 50 MG TAB PO PRN (22:52)
[2021-11-20] MEDS ORDERED: IBUPROFEN 800 MG TAB PO PRN (22:52)
[2021-11-20] MEDS ORDERED: IPRATROPIUM 0.5 MG/2.5 ML NEBU INHALATION PRN (22:52)
[2021-11-20] MEDS: HYDROcodone/APAP 10-325MG 1 EACH TAB PO PRN (23:54)
[2021-11-21] MEDS: SYMBICORT 160-4.5 MCG INHALER INHALATION SCH ×2 (07:38→19:27)
[2021-11-21] MEDS: FUROSEMIDE 40 MG TAB PO SCH (09:05)
[2021-11-21] MEDS: HYDROcodone/APAP 10-325MG 1 EACH TAB PO PRN ×2 (09:05→19:59)
[2021-11-21] MEDS: buPROPion SR 150 MG TABLET.ER PO SCH ×2 (09:05→19:43)
[2021-11-21] MEDS: predniSONE 10 MG TAB PO SCH (09:07)
[2021-11-21] MEDS: MONTELUKAST 10 MG TAB PO SCH (09:07)
[2021-11-21] MEDS: PANTOPRAZOLE 40 MG TABLET PO SCH (09:07)
[2021-11-21] MEDS: SODIUM CHLORIDE 0.9% 1,000 ML IV SCH ×2 (17:00→17:01)
--- NOTE | 2021-11-21 18:55 | HP ---
HISTORY AND PHYSICAL CHIEF COMPLAINT: Atypical chest pain and right upper quadrant pain. HISTORY OF PRESENT ILLNESS: This is another admission for this 66-year-old white male who has severe COPD. He has actually been getting along fairly well since he quit smoking several years ago. He came into the emergency room because of right upper quadrant pain. He had no fever, chills, nausea, vomiting, jaundice, urinary complaints, etc. Workup in the emergency room failed to demonstrate any pathology. CT was normal. It was wondered if this could be referred cardiac pain, but that workup was negative, too. He was admitted for further evaluation. REVIEW OF SYSTEMS: He has had no neurologic problems, hemoptysis, nausea, vomiting, hematemesis, melena, hematochezia, jaundice, renal symptoms or signs, etc. Past medical history, family history, and personal and social histories are largely related to his COPD. He is no longer smoking. PHYSICAL EXAMINATION: Blood pressure is 129/78 with a pulse of 86 and regular, respirations of 38, and he is afebrile. In general he appeared to be short of breath and in no acute distress. Head, ears, eyes, nose, mouth and throat were normal. Chest demonstrated increased AP diameter with very poor breath sounds. There were scattered rhonchi. There were extensive rales. Cardiac exam demonstrated normal sinus rhythm. The abdomen was soft and he had point tenderness in the right upper quadrant. There were no masses or visceromegaly. Bowel sounds were present. Extremities were normal. Neurologically he was intact. He is admitted to the hospital with the diagnoses: 1. Right upper quadrant pain, etiology unknown. 2. Chronic obstructive pulmonary disease. PLAN: 1. Bedrest. 2. IV fluids. 3. Serial examinations of the abdomen along with blood work, looking for the etiology of the right upper quadrant pain. MMODL / IJN: [id number] /
--- NOTE | 2021-11-21 18:55 | PN ---
PROGRESS NOTE DATE OF SERVICE: 11/21/2021 CHIEF COMPLAINT: Right upper quadrant pain. HISTORY OF PRESENT ILLNESS: This gentleman is the same. He has the same pain. He has had no chills, fever, nausea, vomiting, etc. PHYSICAL EXAMINATION: Chest demonstrates poor breath sounds. The cardiac exam is normal. He has point tenderness in the right upper quadrant. This could be abdominal wall pain. Bowel sounds are present. IMPRESSION: 1. Right upper quadrant pain. 2. Chronic obstructive pulmonary disease. PLAN: Repeat laboratory studies and monitor abdominal pain and findings. MMODL / IJN: [id number] /
[2021-11-21] MEDS: DOXAZOSIN 1 MG TAB PO SCH (19:59)
[2021-11-22] MEDS: SODIUM CHLORIDE 0.9% 1,000 ML IV SCH ×2 (05:38→14:20)
[2021-11-22] MEDS: PANTOPRAZOLE 40 MG TABLET PO SCH (07:22)
[2021-11-22] MEDS: HYDROcodone/APAP 10-325MG 1 EACH TAB PO PRN ×2 (07:22→17:21)
[2021-11-22] MEDS: buPROPion SR 150 MG TABLET.ER PO SCH ×2 (07:22→19:59)
[2021-11-22] MEDS: MONTELUKAST 10 MG TAB PO SCH (07:22)
[2021-11-22] MEDS: FUROSEMIDE 40 MG TAB PO SCH (07:22)
[2021-11-22] MEDS: predniSONE 10 MG TAB PO SCH (07:22)
[2021-11-22] MEDS: SYMBICORT 160-4.5 MCG INHALER INHALATION SCH ×2 (07:50→18:56)
[2021-11-22] MEDS: DOXAZOSIN 1 MG TAB PO SCH (19:59)
--- NOTE | 2021-11-22 21:32 | PN ---
PROGRESS NOTE CHIEF COMPLAINT: Right upper quadrant pain. HISTORY OF PRESENT ILLNESS: This gentleman seems to be doing fairly well. He states he is still having the right upper quadrant pain. He has had no fever, chills, nausea, vomiting, etc. He does states it is slightly better. PHYSICAL EXAMINATION: Chest demonstrates poor breath sounds due to his emphysema. Cardiac exam is normal. The abdomen is slightly distended, soft, and he has some tenderness in the right upper quadrant. He points to one point. Nothing can be palpated there. Bowel sounds are present. Extremities are normal. IMPRESSION: 1. Right upper quadrant pain, etiology unknown. 2. Chronic obstructive pulmonary disease. PLAN: Continue to monitor. If his pain continues to improve, he can probably go home tomorrow. MMODL / IJN: [id number] /
[2021-11-23] MEDS: HYDROcodone/APAP 10-325MG 1 EACH TAB PO PRN ×2 (02:27→11:45)
[2021-11-23] MEDS: SODIUM CHLORIDE 0.9% 1,000 ML IV SCH (04:30)
[2021-11-23] MEDS: MONTELUKAST 10 MG TAB PO SCH (07:19)
[2021-11-23] MEDS: FUROSEMIDE 40 MG TAB PO SCH (07:19)
[2021-11-23] MEDS: PANTOPRAZOLE 40 MG TABLET PO SCH (07:19)
[2021-11-23] MEDS: predniSONE 10 MG TAB PO SCH (07:19)
[2021-11-23] MEDS: buPROPion SR 150 MG TABLET.ER PO SCH (07:19)
[2021-11-23] MEDS: SYMBICORT 160-4.5 MCG INHALER INHALATION SCH ×2 (07:55→07:59)
[2021-11-23] MEDS ORDERED: ERGOCALCIFEROL 1,250 MCG (50,000 IU) CAPSULE PO SCH (09:00)
[2021-11-23 13:44] VITALS: BP 126/84; PULSE 93; RESP 12; TEMP 99.7
--- NOTE | 2021-11-24 08:14 | DS ---
DISCHARGE SUMMARY CHIEF COMPLAINT: Right upper quadrant pain. HISTORY OF PRESENT ILLNESS AND PHYSICAL EXAMINATION: Details of this man's history and physical can be found in the initial workup. LABORATORY STUDIES: While he was in the hospital he had laboratory studies, details of which can be found in the laboratory section of his chart. COURSE IN THE HOSPITAL: After admission he was placed on bedrest, started on intravenous fluids and started on workup for the right upper quadrant pain. The pain remained very localized in a point in the right upper quadrant and eventually it was determined this might have been due to abdominal wall muscle strain or tear. He was doing well and it was felt that he could go home on November 23. He will go home on his usual activity, diet and medication, and he will be followed up in the office. FINAL DIAGNOSIS: 1. Right upper quadrant abdominal wall pain. 2. Chronic obstructive pulmonary disease. OPERATIONS: None. CONSULTATIONS: None. He is improved. MMELLEL / LAURA: [id number] /
== END 2021-11-23 14:25 | disposition home or self-care (01) ==
LOC: EC 15:46 → 6NMEDSUR 22:51
PROVIDERS: ADMIT Family Medicine; ATTEND Family Medicine
DX: R10.11 Right upper quadrant pain (principal); J43.9 Emphysema, unspecified; R07.89 Other chest pain; I45.10 Unspecified right bundle-branch block; K57.90 Diverticulosis of intestine, part unspecified, without perforation or abscess without bleeding; R91.1 Solitary pulmonary nodule; R19.01 Right upper quadrant abdominal swelling, mass and lump; G89.29 Other chronic pain; M54.50 Low back pain, unspecified; M54.2 Cervicalgia; Z79.51 Long term (current) use of inhaled steroids; Z79.52 Long term (current) use of systemic steroids; Z79.899 Other long term (current) drug therapy; Z87.01 Personal history of pneumonia (recurrent); Z87.891 Personal history of nicotine dependence; Z86.010 Personal history of colon polyps; Z87.19 Personal history of other diseases of the digestive system; Z87.2 Personal history of diseases of the skin and subcutaneous tissue; Z98.890 Other specified postprocedural states; Z80.0 Family history of malignant neoplasm of digestive organs
CPT/HCPCS: 96374; 99285; 36415; 94640 ×2; 94760 ×2; 93005; 85379; 83880; 80053; 83690; 83735; 84484 ×2; 85025; 85610; 85730; 71046; 76705; 74177; G0378 ×4; S0106 ×3; J1885; J7512 ×3; Q9967

== ENCOUNTER 2022-05-20 09:17 | Emergency (ER) | payer MEDICARE, OTHER ==
[2022-05-20 10:29] VITALS: TEMP 98.2
[2022-05-20] MEDS ORDERED: LIDOCAINE VISCOUS 2% 15 ML CUP MUCOUS MEM ONE (10:47)
--- NOTE | 2022-05-20 11:01 | ED ---
ENT HPI - General Chief complaint: Dental/Oral Stated complaint: oral swelling Time Seen by Provider: 05/20/22 10:30 Source: patient, RN notes reviewed Mode of arrival: EMS Limitations: no limitations - History of Present Illness Initial comments: This is a 67-year-old male who presents to the emergency department for a sore mouth. States that for the last several days, he has had increasing pain in his mouth, particularly at the roof of the mouth. States that his mouth feels very raw and he is unable to eat due to the pain. He is a resident at [facility], and they are requesting he be tested for COVID, as three other people in his hallway recently tested positive. Denies any fevers, chills, cough, dyspnea, chest pain, palpitations, abdominal pain, nausea, vomiting, diarrhea, back pain, or headaches. MD complaint: other (oral pain) Onset/Timin -: days(s) Worsens with: swallowing, eating - Related Data Home Medications Medication Instructions Recorded Confirmed Ipratropium [place] [Atrovent Hfa] 2 puff INHALATION RT-QID 09/16/16 11/20/21 Albuterol Nebulized [Ventolin 2.5 mg INHALATION RT-QID PRN 11/04/20 11/20/21 Nebulized] Albuterol Sulfate [Proair Hfa] 2 puff INHALATION RT-BID PRN 11/04/20 11/20/21 Ergocalciferol (Vitamin D2) 1,250 mcg PO SAPP 11/04/20 11/20/21 [Drisdol (50,000 Iu)] Ipratropium Nebulized [Atrovent 0.5 mg INHALATION QID PRN 11/04/20 11/20/21 Nebulized 0.2 MG/ML] Montelukast Sodium [Singulair] 10 mg PO DAILY 11/04/20 11/20/21 Omeprazole 20 mg PO DAILY 11/04/20 11/20/21 buPROPion HCL [buPROPion HCL SR] 150 mg PO BID 11/04/20 11/20/21 Budesonide/Formoterol Fumarate 2 puff INHALATION RT-BID 11/20/21 11/20/21 [Symbicort 160-4.5 Mcg Inhaler] Doxazosin [Cardura] 1 mg PO HS 11/20/21 11/20/21 Furosemide [Lasix] 40 mg PO DAILY 11/20/21 11/20/21 HYDROcodone/APAP 10-325MG [[place] 1 tab PO TID PRN 11/20/21 11/20/21 10-325] Ibuprofen [Motrin] 800 mg PO QID PRN 11/20/21 11/20/21 predniSONE 10 mg PO DAILY 11/20/21 11/20/21 traZODone HCL [Desyrel] 50 mg PO HS PRN 11/20/21 11/20/21 Previous Rx's Medication Instructions Recorded Acet/Diph/Lido/Jmdd-Sok-Azz-Si 10 ml PO Q4H PRN #240 ml 05/20/22 [Tyl/Benadryl/Lido/Maalox] Nirmatrelvir/Ritonavir [Paxlovid 1 pack PO BID 5 Days #30 tab 05/20/22 2X150 mg-100 mg (Eua)] Allergies Allergy/AdvReac Type Severity Reaction Status Date / Time No Known Allergies Allergy Verified 05/20/22 10:29 Review of Systems ROS Statement: Those systems with pertinent positive or pertinent negative responses have been documented in the HPI. ROS Other: All systems not noted in ROS Statement are negative. Past Medical History Past Medical History: COPD, Pneumonia Additional Past Medical History / Comment(s): Home oxygen at 3-4L?[place] ATC, bronchitis, R lung lesion/pt states attempted to biopsy but failed, chronic cervical/lumbar back pain, R upper quadrant "lump", neck abscesses, hiatal hernia, gastritis, diverticular dx, benign colon polyp History of Any Multi-Drug Resistant Organisms: None Reported Past Surgical History: Orthopedic Surgery Additional Past Surgical History / Comment(s): Attempted L lung bx/failed per pt, EGD, colonoscopies/benign polypectomy, R upper shoulder I&D sebacceous cyst., L ankle fx with ORIF/hardware. Past Anesthesia/Blood Transfusion Reactions: No Reported Reaction Past Psychological History: No Psychological Hx Reported Smoking Status: Former smoker Past Alcohol Use History: None Reported Past Drug Use History: None Reported - Past Family History Mother Family Medical History: Cancer Additional Family Medical History / Comment(s): Mother had metastatic cancer, primary unknown to pt. Father Family Medical History: Cancer Additional Family Medical History / Comment(s): Colon cancer. General Exam Limitations: no limitations General appearance: alert, in no apparent distress Head exam: Present: atraumatic, normocephalic, normal inspection ENT exam: Present: TM's normal bilaterally, normal external ear exam, other (Several pinpoint erythematous lesions at the roof of the mouth. No posterior pharyngeal erythema, tonsilar hypertrophy, white patches on the tongue, or other visible irregularities.) Neck exam: Present: normal inspection. Absent: tenderness, meningismus, lymphadenopathy Respiratory exam: Present: normal lung sounds bilaterally. Absent: respiratory distress, wheezes, rales, rhonchi, stridor Cardiovascular Exam: Present: normal rhythm, tachycardia, normal heart sounds. Absent: systolic murmur, diastolic murmur, rubs, gallop, clicks Neurological exam: Present: alert, oriented X3, CN II-XII intact Psychiatric exam: Present: normal affect, normal mood Skin exam: Present: warm, dry, intact, normal color. Absent: rash Course Vital Signs 05/20/22 10:24 Temperature 98.2 F Pulse Rate 110 H Respiratory 24 Rate Blood Pressure 121/80 O2 Sat by Pulse 96 Oximetry Medical Decision Making - Medical Decision Making This is a 67-year-old male who presents to the emergency department for oral pain. Physical exam consistent with herpangina. Patient positive for COVID-19. He was given a dose of viscous lidocaine in the emergency department, which he states was beneficial to his symptoms. Discussed with the patient that the herpangina may be related to the COVID or an alternative viral infection. Prescription for Magic mouthwash provided to be used every 4-6 hours as needed for the pain. If his symptoms of the oral pain do not resolve in the next several days, advised he follow-up with his primary care provider for reevaluation and possible ENT referral. Paxlovid prescribed to be taken for 5 days. Recommended getting plenty of rest and continuing with symptomatic management. The patient is also instructed to quarantine for 5 days and practice extra precautions for an additional 5 days, including always wearing a mask around others and avoiding travel. Return precautions reviewed in depth, the patient is instructed to return to the emergency department with any new, worsening, or concerning symptoms. Patient verbalized understanding. This case was discussed in detail with the attending ED physician. Presentation, findings, and treatment plan discussed in detail as well. - Lab Data Lab Results 05/20/22 Range/Units 11:04 Coronavirus (PCR) Detected A (Not Detectd) Disposition Clinical Impression: COVID-19, Herpangina Disposition: HOME SELF-CARE Instructions (If sedation given, give patient instructions): COVID-19 (Coronavirus Disease 2019) (ED), How to Recover from COVID-19 at Home (ED) Additional Instructions: Return to the emergency department with any new, worsening, or concerning symptoms. You can use some mouthwash every 4-6 hours as needed for pain relief. Take the Paxlovid as prescribed for 5 days. Make sure that you are getting plenty of rest and continuing with symptomatic management. You are instructed to quarantine for 5 days and practice extra precautions for an additional 5 days, including always wearing a mask around others and avoiding travel. Prescriptions: Nirmatrelvir/Ritonavir [Paxlovid 2X150 mg-100 mg (Eua)] 1 pack PO BID 5 Days #30 tab Acet/Diph/Lido/Itcs-Rgy-Fgc-Si [Tyl/Benadryl/Lido/Maalox] 10 ml PO Q4H PRN #240 ml PRN Reason: Pain Is patient prescribed a controlled substance at d/c from ED?: No Referrals: Sunil Warren MD [Primary Care Provider] - 1-2 days
[2022-05-20] MEDS ORDERED: KETOROLAC 15 MG/ML 1 ML VIAL IM STA (12:19)
[2022-05-20 12:46] VITALS: BP 158/89; PULSE 78; RESP 20
== END 2022-05-20 13:28 | disposition home or self-care (01) ==
LOC: EC 09:17
DX: U07.1 COVID-19 (principal); B08.5 Enteroviral vesicular pharyngitis; J44.9 Chronic obstructive pulmonary disease, unspecified; Z87.891 Personal history of nicotine dependence; Z79.51 Long term (current) use of inhaled steroids
CPT/HCPCS: 87635; 96372; 99283; J1885

== ENCOUNTER 2022-07-27 09:55 | Emergency (ER) | payer MEDICARE, OTHER ==
[2022-07-27] MEDS ORDERED: HYDROmorphone 1 MG/ML 1 ML SYRINGE IVP STA (10:42)
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
--- NOTE | 2022-07-27 12:00 | CT ---
EXAMINATION TYPE: CT lumbar spine wo con DATE OF EXAM: 07/27/2022 COMPARISON: 11/20/2021 HISTORY: 67-year-old male low back pain TECHNIQUE: Contiguous axial scanning of the lumbar spine without IV contrast. Coronal and sagittal re constructions performed. CT DLP: 1232 mGycm Automated exposure control for dose reduction was used. FINDINGS: Degenerative bony ankylosis right SI joint. Mild multilevel degenerative disc disease with disc bulging at multiple levels. Hypertrophic facet ar e limited to lower lumbar spine. Degenerative grade 1 retrolisthesis L4-L5. Vertebral body heights are preserved. Disc bulges contribute to mild narrowing of the spinal canal at L2-L3. Moderate to severe focal spina l canal stenosis at L3-L4. Moderate focal spinal canal stenosis at L4-L5. Variable minimal inferior foraminal narrowing mid to lower lumbar spine. IMPRESSION: 1. MILD MULTILEVEL DEGENERATIVE DISC DISEASE. FACET ARTHROPATHY MID TO LOWER LUMBAR SPINE. 2. DEGENERATIVE GRADE 1 RETROLISTHESIS L4-L5. NO VERTEBRAL COMPRESSION COLLAPSE. 3. Moderate to severe focal spinal canal stenosis at L3-L4. Moderate at L4-L5 and mild at L2-L3.
--- NOTE | 2022-07-27 12:03 | CT ---
EXAMINATION TYPE: CT pelvis wo con DATE OF EXAM: 07/27/2022 COMPARISON: 11/20/2021 HISTORY: 67-year-old male back/right hip pain TECHNIQUE: Contiguous axial scanning of the pelvis without IV contrast. Coronal and sagittal reconstr uctions performed. CT DLP: 648.1 mGycm Automated exposure control for dose reduction was used. FINDINGS: Degenerative bony ankylosis right SI joint. Prominent urinary bladder. Correlate to ensure that this represents voluntary retention. Prostate gla nd itself measures 4.1 cm, mildly enlarged. Correlate with PSA values and patient's symptoms to exclu de BPH. Moderate to severe left and moderate right hip OA on both sides with joint space narrowing and promin ent marginal spurring. No significant joint effusion. No acute fracture no significant soft tissue abnormality seen. IMPRESSION: 1. MODERATE TO SEVERE LEFT AND MODERATE RIGHT HIP OA. 2. Degenerative bony ankylosis right SI joint. 3. No acute osseous abnormality seen.
[2022-07-27 13:39] VITALS: BP 149/83; PULSE 100; RESP 20; TEMP 98.3
== END 2022-07-27 13:50 | disposition home or self-care (01) ==
LOC: EC 09:55
DX: M54.16 Radiculopathy, lumbar region (principal); M16.11 Unilateral primary osteoarthritis, right hip; M43.16 Spondylolisthesis, lumbar region; M47.816 Spondylosis without myelopathy or radiculopathy, lumbar region; M48.061 Spinal stenosis, lumbar region without neurogenic claudication; M51.36 Other intervertebral disc degeneration, lumbar region; J44.9 Chronic obstructive pulmonary disease, unspecified; Z87.891 Personal history of nicotine dependence; Z79.899 Other long term (current) drug therapy
CPT/HCPCS: 72192; 72131; 99284; 96374; J1170

== ENCOUNTER 2022-12-10 02:09 | Inpatient (IN) | payer MEDICARE, OTHER ==
[2022-12-10] MEDS ORDERED: SODIUM CHLORIDE 0.9% 1,000 ML IV STA ×2 (02:24→05:35)
[2022-12-10 02:57] LABS: Anisocytosis Slight; Basophils % (A) 0 %; Eosinophils # (A) 0.1 k/uL (0-0.7); Eosinophils % (A) 1 %; HCT 29.6 % (39.0-53.0); Hypochromasia Marked; Lymphocytes # (A) 0.9 k/uL (1.0-4.8); Lymphocytes % (A) 9 %; MCH 22.5 pg (25.0-35.0); MCHC 30.5 g/dL (31.0-37.0); MCV 73.8 fL (80.0-100.0); Mean Platelet Volume 7.6; Microcytosis Moderate; Monocytes # (A) 0.7 k/uL (0-1.0); Monocytes % (A) 7 %; Neutrophils # (A) 8.3 k/uL (1.3-7.7); Neutrophils % (A) 81 %; Platelet Count 251 k/uL (150-450); RBC 4.01 m/uL (4.30-5.90); RDW 16.8 % (11.5-15.5); WBC 10.3 k/uL (3.8-10.6)
--- NOTE | 2022-12-10 02:58 | ED ---
Abdominal Pain HPI - General Source: patient, EMS, RN notes reviewed Mode of arrival: EMS Limitations: no limitations <Ankit Fagan - Last Filed: 12/10/22 04:01> <Barber Vazquez - Last Filed: 12/10/22 06:18> - General Chief Complaint: Abdominal Pain Stated Complaint: Abd Pain Time Seen by Provider: 12/10/22 02:13 - History of Present Illness Initial Comments: This a 67-year-old male presents emergency Department chief complaint of abdominal pain. Patient states he started having increasing abdominal pain t leonor states that he fell again no bowel movement states he took 2 doses of Ex- Lax. Patient states he felt a pop in his been having increasing severe pain now. Patient states it's worse in his lower abdomen. Patient denies any prior abdominal surgeries. Denies any reported fever has no dysuria patient did admit to some nausea denies chest pain shortness breath. (Ankit Fagan) - Related Data Home Medications Medication Instructions Recorded Confirmed Ipratropium Byers [Atrovent Hfa] 2 puff INHALATION RT-QID 09/16/16 11/20/21 Albuterol Nebulized [Ventolin 2.5 mg INHALATION RT-QID PRN 11/04/20 11/20/21 Nebulized] Albuterol Sulfate [Proair Hfa] 2 puff INHALATION RT-BID PRN 11/04/20 11/20/21 Ergocalciferol (Vitamin D2) 1,250 mcg PO SAPP 11/04/20 11/20/21 [Drisdol (50,000 Iu)] Ipratropium Nebulized [Atrovent 0.5 mg INHALATION QID PRN 11/04/20 11/20/21 Nebulized 0.2 MG/ML] Montelukast Sodium [Singulair] 10 mg PO DAILY 11/04/20 11/20/21 Omeprazole 20 mg PO DAILY 11/04/20 11/20/21 buPROPion HCL [buPROPion HCL SR] 150 mg PO BID 11/04/20 11/20/21 Budesonide/Formoterol Fumarate 2 puff INHALATION RT-BID 11/20/21 11/20/21 [Symbicort 160-4.5 Mcg Inhaler] Doxazosin [Cardura] 1 mg PO HS 11/20/21 11/20/21 Furosemide [Lasix] 40 mg PO DAILY 11/20/21 11/20/21 HYDROcodone/APAP 10-325MG [[place]en 1 tab PO TID PRN 11/20/21 11/20/21 10-325] Ibuprofen [Motrin] 800 mg PO QID PRN 11/20/21 11/20/21 predniSONE 10 mg PO DAILY 11/20/21 11/20/21 traZODone HCL [Desyrel] 50 mg PO HS PRN 11/20/21 11/20/21 Previous Rx's Medication Instructions Recorded Acet/Diph/Lido/Jbfq-Ixg-Wwp-Si 10 ml PO Q4H PRN #240 ml 05/20/22 [Tyl/Benadryl/Lido/Maalox] Nirmatrelvir/Ritonavir [Paxlovid 1 pack PO BID 5 Days #30 tab 05/20/22 2X150 mg-100 mg (Eua)] Allergies Allergy/AdvReac Type Severity Reaction Status Date / Time No Known Allergies Allergy Verified 07/27/22 10:07 Review of Systems ROS Other: All systems not noted in ROS Statement are negative. <Ankit Fagan - Last Filed: 12/10/22 04:01> ROS Other: All systems not noted in ROS Statement are negative. <Barber Vazquez - Last Filed: 12/10/22 06:18> ROS Statement: Those systems with pertinent positive or pertinent negative responses have been documented in the HPI. Past Medical History Past Medical History: COPD, Pneumonia Additional Past Medical History / Comment(s): Home oxygen at 3-4L?[place] ATC, bronchitis, R lung lesion/pt states attempted to biopsy but failed, chronic cervical/lumbar back pain, R upper quadrant "lump", neck abscesses, hiatal hernia, gastritis, diverticular dx, benign colon polyp History of Any Multi-Drug Resistant Organisms: None Reported Past Surgical History: Orthopedic Surgery Additional Past Surgical History / Comment(s): Attempted L lung bx/failed per pt, EGD, colonoscopies/benign polypectomy, R upper shoulder I&D sebacceous cyst., L ankle fx with ORIF/hardware. Past Anesthesia/Blood Transfusion Reactions: No Reported Reaction Past Psychological History: No Psychological Hx Reported Smoking Status: Former smoker Past Alcohol Use History: Occasional Past Drug Use History: None Reported - Past Family History Mother Family Medical History: Cancer Additional Family Medical History / Comment(s): Mother had metastatic cancer, primary unknown to pt. Father Family Medical History: Cancer Additional Family Medical History / Comment(s): Colon cancer. <Ankit Fagan - Last Filed: 12/10/22 04:01> General Exam Limitations: no limitations General appearance: alert, in no apparent distress Head exam: Present: atraumatic, normocephalic, normal inspection Eye exam: Present: normal appearance, PERRL, EOMI. Absent: scleral icterus, conjunctival injection, periorbital swelling ENT exam: Present: normal exam, normal oropharynx, mucous membranes moist Neck exam: Present: normal inspection, full ROM. Absent: tenderness, m eningismus, lymphadenopathy Respiratory exam: Present: normal lung sounds bilaterally. Absent: respiratory distress, wheezes, rales, rhonchi, stridor Cardiovascular Exam: Present: regular rate, normal rhythm, normal heart sounds. Absent: systolic murmur, diastolic murmur, rubs, gallop, clicks GI/Abdominal exam: Present: soft, tenderness, normal bowel sounds. Absent: distended, guarding, rebound, rigid Back exam: Absent: CVA tenderness (R), CVA tenderness (L) Neurological exam: Present: alert <Ankit Fagan - Last Filed: 12/10/22 04:01> Course Vital Signs 12/10/22 12/10/22 12/10/22 02:10 03:14 05:00 Temperature 97.8 F Pulse Rate 83 82 91 Respiratory 22 20 18 Rate Blood Pressure 104/77 123/73 O2 Sat by Pulse 90 L 95 97 Oximetry Medical Decision Making - Lab Data Result diagrams: 12/10/22 02:27 12/10/22 02:27 <Ankit Fagan - Last Filed: 12/10/22 04:01> - Lab Data Result diagrams: 12/10/22 02:27 12/10/22 02:27 <Barber Vazquez - Last Filed: 12/10/22 06:18> - Medical Decision Making Was pt. sent in by a medical professional or institution (, PA, WELL TESTING OPERATOR, urgent care, hospital, or long-term...) When possible be specific @ -No Did you speak to anyone other than the patient for history (EMS, parent, family, police, friend...)? What history was obtained from this source @ -No Did you review nursing and triage notes (agree or disagree)? Why? @ -I reviewed and agree with nursing and triage notes Were old charts reviewed (outside hosp., previous admission, EMS record, old EKG, old radiological studies, urgent care reports/EKG's, long-term records)? Report findings @ -Reviewed prior laboratory studies Differential Diagnosis (chest pain, altered mental status, abdominal pain women, abdominal pain men, vaginal bleeding, weakness, fever, dyspnea, syncope, headache, dizziness, GI bleed, back pain, seizure, CVA, palpatations, mental health, musculoskeletal)? @ -Differential Abdominal Pain Men: Appendicitis, cholecystitis, diverticulosis, ischemic bowel, pancreatitis, hepatitis, UTI, gastroenteritis, AAA, incarcerated hernia, bowel obstruction, constipation, inflammatory bowel, hepatitis, peptic ulcer disease, splenic infarction, perforated viscus, testicular torsion, this is not meant to be an all-inclusive listain EKG interpreted by me (3pts min.). @ -None X-rays interpreted by me (1pt min.). @ -None done CT interpreted by me (1pt min.). @ - U/S interpreted by me (1pt. min.). @ -None done What testing was considered but not performed or refused? (CT, X-rays, U/S, labs)? Why? @ -None What meds were considered but not given or refused? Why? @ -None Did you discuss the management of the patient with other professionals (professionals i.e. , PA, WELL TESTING OPERATOR, lab, RT, psych nurse, social welfare administrator, certified lactation counselor, teacher, command and control officer, immigration case worker)? Give summary @ -No Was smoking cessation discussed for >3mins.? @ -No Was critical care preformed (if so, how long)? @ -No Were there social determinants of health that impacted care today? How? (Homelessness, low income, unemployed, alcoholism, drug addiction, transp ortation, low edu. Level, literacy, decrease access to med. care, halfway, rehab)? @ -No Was there de-escalation of care discussed even if they declined (Discuss DNR or withdrawal of care, Hospice)? DNR status @ -No What co-morbidities impacted this encounter? (DM, HTN, Smoking, COPD, CAD, Cancer, CVA, ARF, Chemo, Hep., AIDS, mental health diagnosis, sleep apnea, morbid obesity)? @ -COPD Was patient admitted / discharged? Hospital course, mention meds given and route, prescriptions, significant lab abnormalities, going to OR and other pertinent info. @ -Patient's case signed out to Dr. Vazquez pending CT results Undiagnosed new problem with uncertain prognosis? @ -No Drug Therapy requiring intensive monitoring for toxicity (Heparin, Nitro, Insulin, Cardizem)? @ -No Were any procedures done? @ -No (Ankit Fagan) Patient signed out to me pending results of CT imaging. Patient originally presented complaining of abdominal pain. He has a history of COPD on 2 L nasal cannula baseline. Has been complaining of increasing abdominal pain and thought he may be constipated. States he felt a "pop" in his right lower quadrant of his abdomen was still having severe pain. No worsening distention. Endorse mild nausea but no emesis. Labs returned that were relatively unremarkable. Patient does have what is likely a chronic anemia with a hemoglobin of 9.0. His microcytic. Remainder the labs are within acceptable limits. CT imaging was pending. I did administer a dose of analgesic medications. The IV as the p atient is having some pain. CT imaging is interpreted by myself revealed what appeared to be inflammatory findings in the distal ileum. Radiology to confirm this and states they're concerned for a Meckel's diverticulitis. Radiology recommending a surgical consult. No other obvious acute intra-abdominal process. I updated the patient. He still having pain and we will administer pain medications. Blood cultures will be obtained and he'll be started on antibiotics. I will reach out to on-call surgeon, Dr. Chapa for her recommendations. I spoke with Dr. Chapa who was in agreement with the plan and will be a baby registry sales consultant. I spoke with the admitting physician, Dr. Warren who accepted the patient. Diagnosis/symptom? @ -Meckel's diverticulitis, abdominal pain Acute, or Chronic, or Acute on Chronic? @ -Acute Uncomplicated (without systemic symptoms) or Complicated (systemic symptoms)? @ -Complicated Side effects of treatment? @ -none Exacerbation, Progression, or Severe Exacerbation] @ -no Poses a threat to life or bodily function? @ -Potentially (Barber Vazquez) - Lab Data Lab Results 12/10/22 12/10/22 12/10/22 Range/Units 02:27 02:27 02:27 WBC 10.3 (3.8-10.6) k/uL RBC 4.01 L (4.30-5.90) m/uL Hgb 9.0 L (13.0-17.5) gm/dL Hct 29.6 L (39.0-53.0) % MCV 73.8 L (80.0-100.0) fL MCH 22.5 L (25.0-35.0) pg MCHC 30.5 L (31.0-37.0) g/dL RDW 16.8 H (11.5-15.5) % Plt Count 251 (150-450) k/uL MPV 7.6 Neutrophils % 81 % Lymphocytes % 9 % Monocytes % 7 % Eosinophils % 1 % Basophils % 0 % Neutrophils # 8.3 H (1.3-7.7) k/uL Lymphocytes # 0.9 L (1.0-4.8) k/uL Monocytes # 0.7 (0-1.0) k/uL Eosinophils # 0.1 (0-0.7) k/uL Basophils # 0.0 (0-0.2) k/uL Hypochromasia Marked Anisocytosis Slight Microcytosis Moderate Sodium 136 L (137-145) mmol/L Potassium 3.8 (3.5-5.1) mmol/L Chloride 97 L (98-107) mmol/L Carbon Dioxide 30 (22-30) mmol/L Anion Gap 9 mmol/L BUN 12 (9-20) mg/dL Creatinine 0.55 L (0.66-1.25) mg/dL Est GFR (CKD-EPI)AfAm >90 (>60 ml/min/1.73 sqM) Est GFR (CKD-EPI)NonAf >90 (>60 ml/min/1.73 sqM) Glucose 97 (74-99) mg/dL Plasma Lactic Acid Adrien 1.1 (0.7-2.0) mmol/L Calcium 8.5 (8.4-10.2) mg/dL Total Bilirubin 0.6 (0.2-1.3) mg/dL AST 21 (17-59) U/L ALT 16 (4-49) U/L Alkaline Phosphatase 66 (38-126) U/L Total Protein 6.4 (6.3-8.2) g/dL Albumin 3.8 (3.5-5.0) g/dL Amylase 53 (30-110) U/L Lipase 18 L (23-300) U/L Urine Color Urine Appearance (Clear) Urine pH (5.0-8.0) Ur Specific [place] (1.001-1.035) Urine Protein (Negative) Urine Glucose (UA) (Negative) Urine Ketones (Negative) Urine Blood (Negative) Urine Nitrite (Negative) Urine Bilirubin (Negative) Urine Urobilinogen (<2.0) mg/dL Ur Leukocyte Esterase (Negative) 12/10/22 Range/Units 04:15 WBC (3.8-10.6) k/uL RBC (4.30-5.90) m/uL Hgb (13.0-17.5) gm/dL Hct (39.0-53.0) % MCV (80.0-100.0) fL MCH (25.0-35.0) pg MCHC (31.0-37.0) g/dL RDW (11.5-15.5) % Plt Count (150-450) k/uL MPV Neutrophils % % Lymphocytes % % Monocytes % % Eosinophils % % Basophils % % Neutrophils # (1.3-7.7) k/uL Lymphocytes # (1.0-4.8) k/uL Monocytes # (0-1.0) k/uL Eosinophils # (0-0.7) k/uL Basophils # (0-0.2) k/uL Hypochromasia Anisocytosis Microcytosis Sodium (137-145) mmol/L Potassium (3.5-5.1) mmol/L Chloride (98-107) mmol/L Carbon Dioxide (22-30) mmol/L Anion Gap mmol/L BUN (9-20) mg/dL Creatinine (0.66-1.25) mg/dL Est GFR (CKD-EPI)AfAm (>60 ml/min/1.73 sqM) Est GFR (CKD-EPI)NonAf (>60 ml/min/1.73 sqM) Glucose (74-99) mg/dL Plasma Lactic Acid Adrien (0.7-2.0) mmol/L Calcium (8.4-10.2) mg/dL Total Bilirubin (0.2-1.3) mg/dL AST (17-59) U/L ALT (4-49) U/L Alkaline Phosphatase (38-126) U/L Total Protein (6.3-8.2) g/dL Albumin (3.5-5.0) g/dL Amylase (30-110) U/L Lipase (23-300) U/L Urine Color Yellow Urine Appearance Clear (Clear) Urine pH 5.5 (5.0-8.0) Ur Specific [place] 1.009 (1.001-1.035) Urine Protein Negative (Negative) Urine Glucose (UA) Negative (Negative) Urine Ketones Negative (Negative) Urine Blood Negative (Negative) Urine Nitrite Negative (Negative) Urine Bilirubin Negative (Negative) Urine Urobilinogen <2.0 (<2.0) mg/dL Ur Leukocyte Esterase Negative (Negative) Disposition <Ankit Fagan - Last Filed: 12/10/22 04:01> Time of Disposition: 05:40 <Barber Vazquez - Last Filed: 12/10/22 06:18> Clinical Impression: Intractable abdominal pain, Meckel's diverticulitis Disposition: ADMITTED IP TO THIS [facility] Condition: Stable Referrals: Sunil Warren MD [Primary Care Provider] - 1-2 days
[2022-12-10 03:11] LABS: ALT 16 U/L (4-49); AST 21 U/L (17-59); African American GFR (CKD) >90 (>60 ml/min/1.73 sqM); Albumin 3.8 g/dL (3.5-5.0); Alkaline Phosphatase 66 U/L (38-126); Amylase 53 U/L (30-110); Anion Gap 9 mmol/L; Blood Urea Nitrogen 12 mg/dL (9-20); Calcium 8.5 mg/dL (8.4-10.2); Carbon Dioxide 30 mmol/L (22-30); Chloride 97 mmol/L (98-107); Glucose 97 mg/dL (74-99); Lipase 18 U/L (23-300); Non-African American GFR(CKD) >90 (>60 ml/min/1.73 sqM); Potassium 3.8 mmol/L (3.5-5.1); Sodium 136 mmol/L (137-145); Total Bilirubin 0.6 mg/dL (0.2-1.3); Total Protein 6.4 g/dL (6.3-8.2)
[2022-12-10] MEDS ORDERED: MORPHINE SULFATE 2 MG/ML SYRINGE IVP STA (04:19)
[2022-12-10 04:25] LABS: Appearance,Urine Clear (Clear); Bilirubin,Urine Negative (Negative); Blood,Urine Negative (Negative); Color,Urine Yellow; Glucose,Urine (UA) Negative (Negative); Ketones,Urine Negative (Negative); Leukocyte Esterase,Urine Negative (Negative); Nitrite,Urine Negative (Negative); PH, Urine 5.5 (5.0-8.0); Protein,Urine Negative (Negative); Specific Gravity,Urine 1.009 (1.001-1.035); Urobilinogen,Urine <2.0 mg/dL (<2.0)
--- NOTE | 2022-12-10 05:27 | CT ---
EXAM: CT Abdomen and Pelvis With Intravenous Contrast CLINICAL HISTORY: abdominal pain TECHNIQUE: Axial computed tomography images of the abdomen and pelvis with intravenous contrast. CTDI is 37 mGy and DLP is 1738.1 mGy-cm. This CT exam was performed using one or more of the following dose reduction techniques: automated exposure control, adjustment of the mA and/or kV according to patient size, and/or use of iterative reconstruction technique. COMPARISON: CT of the pelvis dated 07/27/2022. CT of the abdomen/pelvis dated 11/20/2021. FINDINGS: Lung bases: Mild bibasilar atelectasis. Heart: Heart is at the upper limits of normal. Mediastinum: Small/moderate hiatal hernia. ABDOMEN: Liver: Early cirrhosis with mild steatosis. Gallbladder and bile ducts: Unremarkable. No calcified stones. No ductal dilation. Pancreas: Unremarkable. No mass. No ductal dilation. Spleen: Unremarkable. No splenomegaly. Adrenals: Unremarkable. No mass. Kidneys and ureters: An 8 mm cyst is seen in the mid pole of the right kidney. No hydronephrosis. Stomach and bowel: Tubular blind ending bowel loop is seen arising from the ileum and separate from the appendix with surrounding fat stranding suggesting Meckel diverticulitis (series 202, images 36-42). Probable reactive wall thickening of the adjacent bowel loop, although concurrent infectious versus inflammatory enteritis may also present. No bowel obstruction. No free air. Colonic diverticulosis. PELVIS: Appendix: Normal appendix. Bladder: Decompressed. No mass. Reproductive: Course central calcifications are noted in the prostate. ABDOMEN and PELVIS: Intraperitoneal space: See above. Bones/joints: No acute fracture. No dislocation. Soft tissues: Small bilateral fat-containing inguinal hernias. Vasculature: A 2.5 cm in greatest axial dimension peripherally calcified soft tissue density structure is seen in the upper abdomen interposed between the pancreas and the stomach and adjacent to the splenic artery (series 201, image 19), unchanged. 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 Mild/moderate atherosclerotic vascular calcifications involving the intra-abdominal aorta. Lymph nodes: Unremarkable. No enlarged lymph nodes. IMPRESSION: 1. Tubular blind ending bowel loop is seen arising from the ileum and separate from the appendix with surrounding fat stranding suggesting Meckel diverticulitis (series 202, images 36-42). Probable reactive wall thickening of the adjacent bowel loop, although concurrent infectious versus inflammatory enteritis may also present. No bowel obstruction. No free air. Surgical consult recommended. 2. A 2.5 cm in greatest axial dimension peripherally calcified soft tissue density structure is seen in the upper abdomen interposed between the pancreas and the stomach and adjacent to the splenic artery (series 201, image 19), unchanged. 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 3. Early cirrhosis with mild steatosis. 4. Small/moderate hiatal hernia. 5. Colonic diverticulosis.
[2022-12-10] MEDS ORDERED: MORPHINE SULFATE 4 MG/ML SYRINGE IVP STA (05:35)
[2022-12-10] MEDS ORDERED: ACETAMINOPHEN TAB 325 MG TAB PO PRN (06:00)
[2022-12-10] MEDS ORDERED: NALOXONE 0.4 MG/ML 1 ML VIAL IV PRN (06:00)
[2022-12-10] MEDS ORDERED: ALBUTEROL NEBULIZED 2.5 MG/3 ML INHALATION PRN ×2 (06:02)
[2022-12-10] MEDS ORDERED: IPRATROPIUM 0.5 MG/2.5 ML NEBU INHALATION PRN (06:02)
[2022-12-10] MEDS ORDERED: IPRATROPIUM 0.5 MG/2.5 ML NEBU INHALATION SCH (08:00)
[2022-12-10] MEDS: PIPERACILLIN-TAZOBACTAM 3.375 GM in SODIUM CHLORIDE 0.9% 100 ML IVPB SCH ×2 (10:10→17:41)
[2022-12-10] MEDS: FUROSEMIDE 40 MG TAB PO SCH (10:10)
[2022-12-10] MEDS: MORPHINE SULFATE 4 MG/ML SYRINGE IVP PRN ×2 (10:11→17:43)
[2022-12-10] MEDS: HEPARIN SODIUM,PORCINE/PF 5,000 UNIT/0.5 ML SYRINGE SQ SCH ×2 (10:18→14:42)
--- NOTE | 2022-12-10 11:00 | XR ---
EXAMINATION TYPE: XR chest 2V DATE OF EXAM: 12/10/2022 COMPARISON: Chest x-ray November 20, 2021 HISTORY: COPD. TECHNIQUE: Frontal and lateral views of the chest are obtained. FINDINGS: Background chronic emphysematous and pulmonary fibrotic change is redemonstrated bilaterall y. There is no suspicious new focal air space opacity, pleural effusion, or pneumothorax seen. The cardiac silhouette size is stable and within normal limits. The osseous structures are intact. IMPRESSION: Chronic emphysematous and pulmonary fibrotic changes without acute pulmonary process.
[2022-12-10] MEDS: IPRATROPIUM-ALBUTEROL 3 ML NEB INHALATION SCH ×4 (11:42→21:02)
[2022-12-10] MEDS: SYMBICORT 160-4.5 MCG INHALER INHALATION SCH ×2 (11:42→18:07)
--- NOTE | 2022-12-10 14:12 | P.GSCN ---
History of Present Illness Consult date: 12/10/22 History of present illness: CHIEF COMPLAINT: Abdominal pain HISTORY OF PRESENT ILLNESS: This is a 67-year-old male who presented with abdominal pain across the lower abdomen that started at 1:30 this morning. He reports the pain was very severe he rates it 10 out of 10. Describes it as "something exploding in my abdomen." He had increased abdominal bloating and di stention. He became very nauseous and sweaty. Patient had a computed tomography scan the abdomen and pelvis had shown evidence of Meckel diverticulitis. Patient is currently on IV antibiotics. Patient denies any prior history of diverticulosis. He's never had a colonoscopy. Patient denies any prior abdominal surgery. He does have a history of COPD and is on home O2. PAST MEDICAL HISTORY: COPD on home oxygen. Chronic neck and back pain, hiatal hernia and gastritis PAST SURGICAL HISTORY: See list. MEDICATIONS: See list. ALLERGIES: See list. SOCIAL HISTORY: No illicit drug use. REVIEW OF SYSTEMS: CONSTITUTIONAL: Denies fever or chills. HEENT: Denies blurred vision, vision changes, or eye pain. Denies hemoptysis ENDOCRINE: Denies heat or cold intolerance. CARDIOVASCULAR: Denies chest pain or pressure. RESPIRATORY: No shortness of breath. GASTROINTESTINAL: Please refer to HPI NEURO: Denies history of seizures. PSYCH: No depression or suicidal ideation HEMATOLOGIC: Denies bleeding disorders. LYMPHATIC: The patient denies any lumps and bumps around the neck. GENITOURINARY: Denies any blood in urine or increased urinary frequency. MUSCULOSKELETAL: Denies myalgias. Denies joint swelling. Denies decreased range of motion beyond patients baseline. SKIN: Denies pruitis. Denies rash. PHYSICAL EXAM: VITAL SIGNS: Reviewed GENERAL: Well-developed in no acute distress. HEENT: No sclera icterus. Extraocular movements grossly intact. Moist buccal mucosa. Head is atraumatic, normocephalic. Hears conversational speech. No nasal drainage. NECK: Supple without lymphadenopathy. CHEST: Non-labored respirations and equal bilateral excursions. CARDIOVASCULAR: Palpable 2+ radial pulses. ABDOMEN: Soft. Distended. Tenderness across the lower abdomen. More tender in the suprapubic area and right lower quadrant MUSCULOSKELETAL: No clubbing or cyanosis. NEUROLOGIC: No focal or lateralizing signs. Cranial nerves II through XII grossly intact. PSYCH: Appropriate affect. Alert and oriented to person, place and time. SKIN: Well perfused. Good skin turgor. LABORATORY DATA: WBC is 10.3 Hgb 9.0 plt 251 Sodium 136 potassium 3.8 creatinine 0.55 lactic acid 1.1 urinalysis negative for infection IMAGING: Computed tomography scan abdomen and pelvis tubular blind-ending bowel loop is seen arising from the ileum and separate from the appendix with surrounding fat stranding suggesting Meckel diverticulitis. Probably reactive wall thickening of the adjacent bowel loops although concurrent infectious versus inflammatory enteritis may also be present. No bowel obstruction. No free air. A 2.5 cm greatest axial dimension peripheral calcified soft tissue density structure is seen in the upper abdomen and opposed between the pancreas and the stomach in addition to the splenic artery unchanged. 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 Although mass cannot be definitively excluded. Early cirrhosis and mild steatosis. Small/moderate hiatal hernia. Colonic diverticulosis. Chest x-ray chronic emphysematous and pulmonary fibrotic changes without acute pulmonary process ASSESSMENT: 1. Meckel's diverticulitis 2. Abdominal pain 3. Anemia 4. History of COPD and on home O2 PLAN: -Patient scheduled for Robotic resection of Meckel's diverticulum tomorrow, 12/11/[address] Chapa -Clear liquid diet today -Nothing by mouth after midnight -Consult pulmonary service for pulmonary clearance due to his history of COPD and on home oxygen -Continue supportive care Physician Hotel [employer] Receptionist note has been reviewed by physician. Signing provider agrees with the documented findings, assessment, and plan of care. Past Medical History Past Medical History: COPD, Pneumonia Additional Past Medical History / Comment(s): Home oxygen at 3-4L?[place] ATC, bronch itis, R lung lesion/pt states attempted to biopsy but failed, chronic cervical/lumbar back pain, R upper quadrant "lump", neck abscesses, hiatal hernia, gastritis, diverticular dx, benign colon polyp History of Any Multi-Drug Resistant Organisms: None Reported Past Surgical History: Orthopedic Surgery Additional Past Surgical History / Comment(s): Attempted L lung bx/failed per pt, EGD, colonoscopies/benign polypectomy, R upper shoulder I&D sebacceous cyst., L ankle fx with ORIF/hardware. Past Anesthesia/Blood Transfusion Reactions: No Reported Reaction Past Psychological History: No Psychological Hx Reported Additional Psychological History / Comment(s): Pt resides at [facility]. He has a cane and walker but does not currently use them. He has home oxygen. He no longer drives, his brother takes him to [employer]. Smoking Status: Former smoker Past Alcohol Use History: Occasional Additional Past Alcohol Use History / Comment(s): Pt started smoking in 1972 and quit in 2019. He drinks beer nearly daily, 4-5 cans per day. Past Drug Use History: None Reported - Past Family History Mother Family Medical History: Cancer Additional Family Medical History / Comment(s): Mother had metastatic cancer, primary unknown to pt. Father Family Medical History: Cancer Additional Family Medical History / Comment(s): Colon cancer. Medications and Allergies Home Medications Medication Instructions Recorded Confirmed Type Montelukast Sodium [Singulair] 10 mg PO DAILY 11/04/20 12/10/22 History buPROPion HCL [buPROPion HCL SR] 150 mg PO BID 11/04/20 12/10/22 History Doxazosin [Cardura] 1 mg PO HS 11/20/21 12/10/22 History Furosemide [Lasix] 40 mg PO DAILY 11/20/21 12/10/22 History HYDROcodone/APAP 10-325MG [Como 1 tab PO TID PRN 11/20/21 12/10/22 History 10-325] predniSONE 10 mg PO DAILY 11/20/21 12/10/22 History Famotidine [Pepcid] 20 mg PO DAILY 12/10/22 12/10/22 History Fluticasone/Umeclidin/Vilanter 1 puff INHALATION RT-DAILY 12/10/22 12/10/22 History [Trelegy Ellipta 100-62.5-25] Meloxicam [Mobic] 7.5 mg PO BID 12/10/22 12/10/22 History Pantoprazole Sodium [Protonix] 40 mg PO BID 12/10/22 12/10/22 History Allergies Allergy/AdvReac Type Severity Reaction Status Date / Time No Known Allergies Allergy Verified 07/27/22 10:07 Surgical - Exam Vital Signs Pulse Resp BP Pulse Ox 83 22 104/77 90 L 12/10/22 02:10 12/10/22 02:10 12/10/22 02:10 12/10/22 02:10 Results - Labs 12/10/22 02:27 12/10/22 02:27 Abnormal Lab Results - Last 24 Hours (Table) 12/10/22 12/10/22 Range/Units 02:27 02:27 RBC 4.01 L (4.30-5.90) m/uL Hgb 9.0 L (13.0-17.5) gm/dL Hct 29.6 L (39.0-53.0) % MCV 73.8 L (80.0-100.0) fL MCH 22.5 L (25.0-35.0) pg MCHC 30.5 L (31.0-37.0) g/dL RDW 16.8 H (11.5-15.5) % Neutrophils # 8.3 H (1.3-7.7) k/uL Lymphocytes # 0.9 L (1.0-4.8) k/uL Sodium 136 L (137-145) mmol/L Chloride 97 L (98-107) mmol/L Creatinine 0.55 L (0.66-1.25) mg/dL Lipase 18 L (23-300) U/L Diabetes panel 12/10/22 Range/Units 02:27 Sodium 136 L (137-145) mmol/L Potassium 3.8 (3.5-5.1) mmol/L Chloride 97 L (98-107) mmol/L Carbon Dioxide 30 (22-30) mmol/L BUN 12 (9-20) mg/dL Creatinine 0.55 L (0.66-1.25) mg/dL Glucose 97 (74-99) mg/dL Calcium 8.5 (8.4-10.2) mg/dL AST 21 (17-59) U/L ALT 16 (4-49) U/L Alkaline Phosphatase 66 (38-126) U/L Total Protein 6.4 (6.3-8.2) g/dL Albumin 3.8 (3.5-5.0) g/dL Calcium panel 12/10/22 Range/Units 02:27 Calcium 8.5 (8.4-10.2) mg/dL Albumin 3.8 (3.5-5.0) g/dL Pituitary panel 12/10/22 Range/Units 02:27 Sodium 136 L (137-145) mmol/L Potassium 3.8 (3.5-5.1) mmol/L Chloride 97 L (98-107) mmol/L Carbon Dioxide 30 (22-30) mmol/L BUN 12 (9-20) mg/dL Creatinine 0.55 L (0.66-1.25) mg/dL Glucose 97 (74-99) mg/dL Calcium 8.5 (8.4-10.2) mg/dL Adrenal panel 12/10/22 Range/Units 02:27 Sodium 136 L (137-145) mmol/L Potassium 3.8 (3.5-5.1) mmol/L Chloride 97 L (98-107) mmol/L Carbon Dioxide 30 (22-30) mmol/L BUN 12 (9-20) mg/dL Creatinine 0.55 L (0.66-1.25) mg/dL Glucose 97 (74-99) mg/dL Calcium 8.5 (8.4-10.2) mg/dL Total Bilirubin 0.6 (0.2-1.3) mg/dL AST 21 (17-59) U/L ALT 16 (4-49) U/L Alkaline Phosphatase 66 (38-126) U/L Total Protein 6.4 (6.3-8.2) g/dL Albumin 3.8 (3.5-5.0) g/dL
--- NOTE | 2022-12-10 17:15 | P.CNPUL ---
History of Present Illness Consult date: 12/10/22 Reason for consult: COPD History of present illness: 67-year-old male patient, a poor historian, with advanced oxygen-dependent COPD and a steroid dependent COPD, came into the hospital because of abdominal pain and further investigation with a CAT scan of the abdomen raised concerns for a Meckel diverticulitis. The patient was started on antibiotics and the plan is to proceed with surgery tomorrow. The pulmonary clearance was requested. He is obese. He has also known to have a right lower lobe mass that was PET avid back in 2019. Nevertheless, no further follow-up was done. I believe he was seen by another manager acute other than myself or my group. The patient is currently maintained on Trelegy Ellipta one inhalation a day. No significant cough or sputum production. He does have features of obstructive sleep apnea, however, this has not been diagnosed. Denies having any chest pain. No history of DVT or pulmonary embolism. Does not look to be toxic at this point in time. He is on IV antibiotics. In general, is a poor historian. His WBC count is at 10 with a hemoglobin of 9. Electrolytes are normal. UA is negative. Chest x-ray showed chronic emphysematous changes and some limited fibrotic changes in lung bases. No lung masses identified. He is currently on 3 L of oxygen nasal cannula. His functionality is limited. He does walk yet for short distances. No significant dyspnea at rest. Not using excessive muscles of breathing. Review of Systems Constitutional: Reports as per HPI Eyes: denies as per HPI, denies blurred vision, denies bulging eye, denies decreased vision, denies diplopia, denies discharge, denies dry eye, denies ir ritation, denies itching, denies pain, denies photophobia, denies loss of peripheral vision, denies loss of vision, denies tunnel vision/blind spots Ears: deny: decreased hearing, ear discharge, earache, tinnitus Ears, nose, mouth and throat: Reports as per HPI Breasts: absent: as per HPI, gynecomastia Cardiovascular: Reports decreased exercise tolerance, Reports dyspnea on exertion Respiratory: Reports cough, Reports dyspnea, Reports home oxygen Gastrointestinal: Reports abdominal pain Genitourinary: Reports as per HPI Musculoskeletal: Reports as per HPI Musculoskeletal: absent: ankle pain, ankle stiffness, ankle swelling Integumentary: Reports as per HPI Neurological: Reports as per HPI, Reports change in speech Psychiatric: Reports as per HPI Hematologic/Lymphatic: Reports as per HPI Past Medical History Past Medical History: COPD, Pneumonia Additional Past Medical History / Comment(s): Home oxygen at 3-4L?[place] ATC, bronchitis, R lung lesion/pt states attempted to biopsy but failed, chronic cer vical/lumbar back pain, R upper quadrant "lump", neck abscesses, hiatal hernia, gastritis, diverticular dx, benign colon polyp History of Any Multi-Drug Resistant Organisms: None Reported Past Surgical History: Orthopedic Surgery Additional Past Surgical History / Comment(s): Attempted L lung bx/failed per pt, EGD, colonoscopies/benign polypectomy, R upper shoulder I&D sebacceous cyst., L ankle fx with ORIF/hardware. Past Anesthesia/Blood Transfusion Reactions: No Reported Reaction Past Psychological History: No Psychological Hx Reported Additional Psychological History / Comment(s): Pt resides at [facility]. He has a cane and walker but does not currently use them. He has home oxygen. He no longer drives, his brother takes him to [place]. Smoking Status: Former smoker Past Alcohol Use History: Occasional Additional Past Alcohol Use History / Comment(s): Pt started smoking in 1972 and quit in 2019. He drinks beer nearly daily, 4-5 cans per day. Past Drug Use History: None Reported - Past Family History Mother Family Medical History: Cancer Additional Family Medical History / Comment(s): Mother had metastatic cancer, primary unknown to pt. Father Family Medical History: Cancer Additional Family Medical History / Comment(s): Colon cancer. Medications and Allergies Home Medications Medication Instructions Recorded Confirmed Type Montelukast Sodium [Singulair] 10 mg PO DAILY 11/04/20 12/10/22 History buPROPion HCL [buPROPion HCL SR] 150 mg PO BID 11/04/20 12/10/22 History Doxazosin [Cardura] 1 mg PO HS 11/20/21 12/10/22 History Furosemide [Lasix] 40 mg PO DAILY 11/20/21 12/10/22 History HYDROcodone/APAP 10-325MG [Golden 1 tab PO TID PRN 11/20/21 12/10/22 History 10-325] predniSONE 10 mg PO DAILY 11/20/21 12/10/22 History Famotidine [Pepcid] 20 mg PO DAILY 12/10/22 12/10/22 History Fluticasone/Umeclidin/Vilanter 1 puff INHALATION RT-DAILY 12/10/22 12/10/22 History [Shiv Ellipta 100-62.5-25] Meloxicam [Mobic] 7.5 mg PO BID 12/10/22 12/10/22 History Pantoprazole Sodium [Protonix] 40 mg PO BID 12/10/22 12/10/22 History Allergies Allergy/AdvReac Type Severity Reaction Status Date / Time No Known Allergies Allergy Verified 07/27/22 10:07 Physical Exam Vitals: Vital Signs Temp Pulse Pulse Resp BP BP Pulse Ox 12/10/22 14:29 98.3 F 91 16 106/60 96 12/10/22 11:46 97 12/10/22 09:15 98.9 F 95 20 112/72 20 L 12/10/22 05:00 91 18 123/73 97 12/10/22 03:14 97.8 F 82 20 95 12/10/22 02:10 83 22 104/77 90 L Intake and Output 12/10/22 12/10/22 12/10/22 06:59 14:59 22:59 Intake Total 222 Balance 222 Intake: Oral 222 Other: # Voids 100 Weight 107.955 kg 107.955 kg Obese, comfortable BMI of 33 on oxygen at 3 L Head exam was generally normal. There was no scleral icterus or corneal arcus. Mucous membranes were moist. Neck was supple and without jugular venous distension, thyromegaly, or carotid bruits. Carotids were easily palpable bilaterally. There was no adenopathy., Metabolically less 4 with significant crowding of posterior pharynx Lungs are diminished bilaterally with scattered wheezes Cardiac exam revealed the PMI to be normally situated and sized. The rhythm was regular and no extrasystoles were noted during several minutes of auscultation. The first and second heart sounds were normal and physiologic splitting of the second heart sound was noted. There were no murmurs, rubs, clicks, or gallops. Abdominal exam revealed normal bowel sounds. The abdomen is tender and the patient had direct tenderness in the mid and lower abdominal area. No rebound tenderness or guarding at this point in time. All this cannot be accurately palpated. Examination of the extremities revealed easily palpable radial, femoral and pedal pulses. There was no cyanosis, clubbing or edema. Examination of the skin revealed no evidence of significant rashes, suspicious appearing nevi or other concerning lesions. Neurologically, the patient is awake and alert and the patient does not have any focal neurological deficit. Cranial nerves are essentially intact. Results - Laboratory Findings CBC and BMP: 12/10/22 02:27 12/10/22 02:27 Abnormal lab findings: Abnormal Labs 12/10/22 12/10/22 02: 02:27 RBC 4.01 L Hgb 9.0 L Hct 29.6 L MCV 73.8 L MCH 22.5 L MCHC 30.5 L RDW 16.8 H Neutrophils # 8.3 H Lymphocytes # 0.9 L Sodium 136 L Chloride 97 L Creatinine 0.55 L Lipase 18 L - Diagnostic Findings Chest x-ray: image reviewed Assessment and Plan Plan: Meckel's diverticulitis with secondary abdominal pain awaiting surgical resection. Advanced oxygen-dependent COPD maintain O2 at 3 L nasal cannula, no signs of any acute COPD exacerbation Chronic dyspnea secondary to above Previous history of a right lower lobe pulmonary nodule, PET/CT avid and the patient needs to have further investigation or evaluation by another CAT scan Features of obstructive sleep apnea with obesity and a body mass index of 33 History of chronic neck and back pain History of diverticular disease History of colonic polyps Hiatal hernia. Chronic debility and impaired performance of functional status Plan Obtain a CAT scan of the chest to reevaluate the right lower lobe mass Patient's COPD is chronic advanced yet stable. Obviously this carries a high risk of developing postoperative pulmonary complications due to his chronic COPD and features of THOM. The patient is made aware of those complications which may include atelectasis, pneumonias, respiratory failure requiring noninvasive positive pressure ventilation or intubation. Continue bronchodilators. Continue oxygen therapy Underwent a this patient with the understanding that he carries a high risk of postoperative pulmonary complications. We'll continue following up this patient, reviewed the CAT scan of the chest, and be involved in a postoperative care should there be any postoperative pulmonary complications. Will need incentive spirometer, aggressive pulmonary toileting and DVT prophylaxis.
[2022-12-11] MEDS: PIPERACILLIN-TAZOBACTAM 3.375 GM in SODIUM CHLORIDE 0.9% 100 ML IVPB SCH ×3 (00:32→20:36)
--- NOTE | 2022-12-11 05:48 | HP ---
HISTORY AND PHYSICAL CHIEF COMPLAINT: Abdominal pain. HISTORY OF PRESENT ILLNESS: This is another admission for this 67-year-old white male with severe COPD and emphysema. He apparently had developed some fairly acute abdominal pain over the last day or 2 before coming in. In the emergency room, he was evaluated and his CT suggested that he may have a Meckel's diverticulitis. REVIEW OF SYSTEMS: Difficult to obtain because he is quite deaf. He denies any chest pain, nausea, vomiting, urinary complaints, melena, hematochezia, etc. PAST MEDICAL HISTORY, FAMILY HISTORY AND PERSONAL AND SOCIAL HISTORIES: Pertinent mostly with regard to his COPD. He has a history of alcoholism and he is debilitated. Past medical history, family history and personal and social histories reveal he does not have any allergies. States he is not smoking any longer. MEDICATIONS: Can be found in the MAR section of his chart. PHYSICAL EXAMINATION: VITAL SIGNS: Blood pressure is 129/79 with a pulse of 92, respirations of 34, and he is afebrile. GENERAL: Appeared to be disheveled and older than his stated age. HEENT: Head, ears, eyes, nose, mouth and throat were normal. NECK: Veins not distended. CHEST: Clear but breath sounds are extremely poor. There are scattered rales. CARDIOVASCULAR: Demonstrates sinus tachycardia. ABDOMEN: . He had some mild generalized tenderness, but worse in the right lower quadrant. No masses. Bowel sounds are heard. EXTREMITIES: Normal except for poor muscle bulk. NEUROLOGICAL: He is intact. IMPRESSION: 1. Abdominal pain, etiology unknown. 2. Possible Meckel's diverticulitis. 3. Chronic obstructive pulmonary disease. 4. Presbycusis. PLAN: 1. Bed rest. 2. IV fluids. 3. N.p.o. 4. General surgery consult. MMODL / IJN: [id number] /
[2022-12-11] MEDS: HEPARIN SODIUM,PORCINE/PF 5,000 UNIT/0.5 ML SYRINGE SQ SCH ×4 (05:53→20:39)
[2022-12-11] MEDS: SYMBICORT 160-4.5 MCG INHALER INHALATION SCH (07:56)
[2022-12-11] MEDS: IPRATROPIUM-ALBUTEROL 3 ML NEB INHALATION SCH ×4 (07:56→20:22)
--- NOTE | 2022-12-11 08:06 | P.PN ---
Subjective Progress Note Date: 12/11/22 Patient reports acute on chronic abdominal pain with presence of Meckel's diverticulitis. Place on antibiotics. Will need cardiac risk assessment prior to surgical intervention. He may have diet in the interim. Surgical intervention with resection of Meckel's postponed pending cardiac risk assessment Objective - Vital Signs Vital signs: Vital Signs Temp 98.8 F 12/11/22 03:00 Pulse 83 12/11/22 03:00 Resp 18 12/11/22 03:00 BP 109/73 12/11/22 03:00 Pulse Ox 96 12/11/22 07:56 FiO2 Intake & Output 12/10/22 12/11/22 12/11/22 18:59 06:59 18:59 Intake Total 422 Output Total 575 Balance 422 -575 Weight 107.955 kg Intake: Oral 422 Output: Urine 575 Other: Voiding Method Toilet # Voids 100 1 - Labs CBC & Chem 7: 12/10/22 02:27 12/10/22 02:27
--- NOTE | 2022-12-11 08:12 | CT ---
EXAMINATION TYPE: CT chest wo con DATE OF EXAM: 12/10/2022 COMPARISON: CT 06/09/[address] 05/09/2019 HISTORY: 67-year-old male Cough, abnormal finding on previous exam TECHNIQUE: Contiguous axial scanning of the chest without IV contrast. Coronal and sagittal reconstru ctions performed. CT DLP: 515.0 mGycm Automated exposure control for dose reduction was used. FINDINGS: Heart normal size without pericardial effusion. Mitral annular calcifications are present. 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 Mild atherosclerotic arch calc ifications with conventional arch vessel branching anatomy. Large caliber to the main right and left pulmonary arteries up to 3.0 cm suggesting underlying pulmon alex hypertension. Mild bilateral gynecomastia. Prominent 1 cm low right paratracheal lymph node remains unchanged. No thoracic lymphadenopathy by CT size criteria. Redemonstrated moderate to advanced emphysema with extensive biapical pleural parenchymal scarring an d additional posterior bibasilar scarring. Interstitial changes have increased from prior and there are new irregular patchy opacities, for exam ple, posterior lingula, axially 41, and along the posterior right upper to midlung, from axial image 19 through 23. No pleural effusion. Moderate size hiatal hernia containing mesenteric fat and gastric fundus. Visualized upper abdomen ag ain show a probable 2.5 cm splenic artery aneurysm versus exophytic pancreatic cyst, unchanged from t he patient's 05/09/2019 exam. Bones: Mild degenerative disc disease mid to lower thoracic spine. IMPRESSION: 1. REDEMONSTRATED COPD WITH ADVANCED EMPHYSEMA AND SCATTERED FIBROSIS. UNDERLYING PULMONARY ARTERIAL HYPERTENSION. 2. 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 CORRELATE FOR MULTIFOCAL PNEUMONIA. FOLLOW-UP IN 2 MONTHS TO ENSURE COMPL ETE CLEARANCE AND EXCLUDE UNDERLYING MASS. 3. A 2.5 CM ROUND LESION, EITHER AN EXOPHYTIC PANCREATIC CYST OR A SPLENIC ARTERY ANEURYSM REMAINS UN CHANGED BACK TO 2019. 4. MODERATE SIZE HIATAL HERNIA.
[2022-12-11] MEDS ORDERED: CAFFEINE CITRATE 60 MG/3 ML VIAL IV PRN (08:44)
[2022-12-11] MEDS ORDERED: REGADENOSON 0.4 MG/5 ML SYRINGE IV PRN (08:44)
[2022-12-11] MEDS ORDERED: AMINOPHYLLINE 500 MG/20 ML VIAL IV PRN (08:44)
[2022-12-11] MEDS: FUROSEMIDE 40 MG TAB PO SCH (10:19)
--- NOTE | 2022-12-11 10:21 | P.CRDCN ---
History of Present Illness History of present illness: HISTORY OF PRESENT ILLNESS: This is a 67-year-old male with a past medical history significant for COPD with home oxygen use, former nicotine dependence, and former ETOH use. 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 We have been asked to see the patient in consu ltation for cardiac clearance. Patient examined at the bedside. Patient initially presented to the hospital for chief complaint of abdominal pain. Patient was evaluated by general surgery and found to have Meckel's diverticulitis. He is receiving IV antibiotics. Surgical intervention is being planned for colon resection. The patient denies having any chest pain or pressure at the time of examination. He does however report having some occasional chest pain over the past few months which can occur randomly. The patient reports chronic shortness of breath. He states he has a history of COPD and is oxygen dependent at home. He states he is not very active at home. He states he is unable to walk up a flight of stairs secondary to his COPD. He continues to report abdominal pain this morning. He denies history of hypertension, hyperlipidemia, or diabetes. * EKG reveals sinus mechanism with no signs of acute ischemia. Right bundle branch block. * Chest xray to WBC 10.3. Hemoglobin 9.0. Platelet count 251. Sodium 136. Potassium 3.8. BUN 12. Creatinine 0.55. Lactic acid 1.1. * Laboratory data: WBC 10.3. Hemoglobin 9.0. Platelet count 251. Sodium 136. Potassium 3.8. BUN 12. Creatinine 0.55. Lactic acid 1.1. * Current home cardiac medications include Lasix 40 mg daily * Most recent echocardiogram obtained in 2019 was inconclusive secondary to the patient only being able to walk for less than 2 minutes and patient did not reach his target heart rate. * Cardiac catheterization history: Patient denies REVIEW OF SYSTEMS: At the time of my exam: CONSTITUTIONAL: Denies fever or chills. HEENT: Denies blurred vision, vision changes, or eye pain. Denies hemoptysis CARDIOVASCULAR: Denies chest pain. Denies orthopnea. Denies PND. Denies palpitations RESPIRATORY: Denies shortness of breath. GASTROINTESTINAL: Denies abdominal pain. Denies nausea or vomiting. HEMATOLOGIC: Denies bleeding disorders. GENITOURINARY: Denies any blood in urine. SKIN: Denies pruitis. Denies rash. PHYSICAL EXAM: VITAL SIGNS: Reviewed. GENERAL: Well-developed in no acute distress. HEENT: Head is normocephalic. Pupils are equal, round. Sclerae anicteric. Mucous membranes of the mouth are moist. Neck supple. No JVD or thyromegaly LUNGS: Respirations even and unlabored. Lungs essentially clear to auscultation bilaterally. HEART: Regular rate and rhythm. S1 and S2 heard. ABDOMEN: Soft. Nondistended. Nontender. EXTREMITIES: Normal range of motion. No clubbing or cyanosis. Peripheral pulses intact. No lower extremity edema NEUROLOGIC: Awake and alert. Oriented x 3. ASSESSMENT: Acute on chronic abdominal pain Meckel's diverticulitis, pending bowel resection Vague complaints of chest pain 2-3 months Advanced COPD Chronic hypoxic respiratory failure on home O2 Former nicotine dependence Former EtOH use Morbid obesity: BMI 33.2 PLAN: General surgery following. Awaiting bowel resection. Continue antibiotics Patient is high risk to undergo surgery secondary to his chronic lung disease Patient to undergo Colleen scan stress test today Further recommendations pending patient course Nurse practitioner note has been reviewed by physician. Signing provider agrees with the documented findings, assessment, and plan of care. Past Medical History Past Medical History: COPD, Pneumonia Additional Past Medical History / Comment(s): Home oxygen at 3-4L?NC ATC, bronchitis, R lung lesion/pt states attempted to biopsy but failed, chronic cervical/lumbar back pain, R upper quadrant "lump", neck abscesses, hiatal hernia, gastritis, diverticular dx, benign colon polyp History of Any Multi-Drug Resistant Organisms: None Reported Past Surgical History: Orthopedic Surgery Additional Past Surgical History / Comment(s): Attempted L lung bx/failed per pt, EGD, colonoscopies/benign polypectomy, R upper shoulder I&D sebacceous cyst., L ankle fx with ORIF/hardware. Past Anesthesia/Blood Transfusion Reactions: No Reported Reaction Past Psychological History: No Psychological Hx Reported Additional Psychological History / Comment(s): Pt resides at [facility]. He has a cane and walker but does not currently use them. He has home oxygen. He no longer drives, his brother takes him to [employer]. Smoking Status: Former smoker Past Alcohol Use History: Occasional Additional Past Alcohol Use History / Comment(s): Pt started smoking in 1972 and quit in 2019. He drinks beer nearly daily, 4-5 cans per day. Past Drug Use History: None Reported - Past Family History Mother Family Medical History: Cancer Additional Family Medical History / Comment(s): Mother had metastatic cancer, primary unknown to pt. Father Family Medical History: Cancer Additional Family Medical History / Comment(s): Colon cancer. Medications and Allergies Home Medications Medication Instructions Recorded Confirmed Type Montelukast Sodium [Singulair] 10 mg PO DAILY 11/04/20 12/10/22 History buPROPion HCL [buPROPion HCL SR] 150 mg PO BID 11/04/20 12/10/22 History Doxazosin [Cardura] 1 mg PO HS 11/20/21 12/10/22 History Furosemide [Lasix] 40 mg PO DAILY 11/20/21 12/10/22 History HYDROcodone/APAP 10-325MG [Hopkins 1 tab PO TID PRN 11/20/21 12/10/22 History 10-325] predniSONE 10 mg PO DAILY 11/20/21 12/10/22 History Famotidine [Pepcid] 20 mg PO DAILY 12/10/22 12/10/22 History Fluticasone/Umeclidin/Vilanter 1 puff INHALATION RT-DAILY 12/10/22 12/10/22 History [Trelegy Ellipta 100-62.5-25] Meloxicam [Mobic] 7.5 mg PO BID 12/10/22 12/10/22 History Pantoprazole Sodium [Protonix] 40 mg PO BID 12/10/22 12/10/22 History Allergies Allergy/AdvReac Type Severity Reaction Status Date / Time No Known Allergies Allergy Verified 07/27/22 10:07 Physical Exam Vitals: Vital Signs Temp Pulse Pulse Resp BP Pulse Ox 12/11/22 07:56 96 12/11/22 07:00 98 F 85 18 109/60 96 12/11/22 03:00 98.8 F 83 18 109/73 96 12/10/22 21:19 83 18 12/10/22 20:00 99.0 F 81 17 107/65 96 12/10/22 18:21 88 12/10/22 18:07 88 12/10/22 14:29 98.3 F 91 16 106/60 96 12/10/22 11:46 97 12/10/22 09:15 98.9 F 95 20 112/72 20 L Intake and Output 12/10/22 12/11/22 12/11/22 22:59 06:59 14:59 Intake Total 200 Output Total 575 Balance -375 Intake: Oral 200 Output: Urine 575 Other: Voiding Method Toilet # Voids 1 Results 12/10/22 02:27 12/10/22 02:27 Current Medications Generic Name Dose Route Start Last Admin Trade Name Freq PRN Reason Stop Dose Admin Acetaminophen 650 mg 12/10/22 06:00 Acetaminophen Tab 325 Mg Tab PO Q6HR PRN Mild Pain or Fever > 100.5 Albuterol/Ipratropium 3 ml 12/10/22 09:00 12/11/22 07:56 Ipratropium-Albuterol 3 Ml Neb INHALATION Not Given QID CUCO Budesonide/Formoterol Fumarate 2 puff 12/10/22 08:00 12/11/22 07:56 Symbicort 160-4.5 Mcg Inhaler INHALATION Not Given RT-BID CUCO Furosemide 40 mg 12/10/22 09:00 12/10/22 10:10 Furosemide 40 Mg Tab PO 40 mg DAILY CUCO Administration Heparin Sodium (Porcine) 5,000 unit 12/10/22 08:00 12/11/22 05:53 Heparin Sodium,Porcine/Pf 5,000 Unit/0.5 Ml Syringe SQ Not Given Q8HR CUCO Piperacillin Sod/Tazobactam 100 mls @ 25 mls/hr 12/10/22 08:00 12/11/22 00:32 Sod 3.375 gm/ Sodium Chloride IVPB 25 mls/hr Q8HR CUCO Administration Protocol Morphine Sulfate 4 mg 12/10/22 05:35 12/10/22 17:43 Morphine Sulfate 4 Mg/Ml Syringe IVP 4 mg Q4HR PRN Administration Pain Naloxone HCl 0.2 mg 12/10/22 06:00 Naloxone 0.4 Mg/Ml 1 Ml Vial IV Q2M PRN Opioid Reversal Intake and Output 12/10/22 12/11/22 12/11/22 22:59 06:59 14:59 Intake Total 200 Output Total 575 Balance -375 Intake: Oral 200 Output: Urine 575 Other: Voiding Method Toilet # Voids 1 12/10/22 02:27 12/10/22 02:27
[2022-12-11] MEDS: MORPHINE SULFATE 4 MG/ML SYRINGE IVP PRN ×2 (10:23→20:36)
[2022-12-11 11:08] LABS: Basophils # (A) 0.03 X 10*3/uL (0.00-0.10); Basophils % (A) 0.3 %; Eosinophils # (A) 0.04 X 10*3/uL (0.04-0.35); Eosinophils % (A) 0.4 %; HCT 27.4 % (39.6-50.0); HGB 7.6 g/dL (13.0-17.0); Immature Grans, Automated 0.4 %; Lymphocytes # (A) 0.56 X 10*3/uL (0.90-5.00); MCH 21.8 pg (27.0-32.0); MCHC 27.7 g/dL (32.0-37.0); MCV 78.5 fL (80.0-97.0); Mean Platelet Volume 10.1 fL (9.5-12.2); Monocytes # (A) 0.94 X 10*3/uL (0.20-1.00); NRBC Per 100 WBC 0 /100 WBCS (0.0-0.0); Neutrophils # (A) 7.75 X 10*3/uL (1.80-7.70); Neutrophils % (A) 82.9 %; Platelet Count 249 X 10*3/uL (140-440); RBC 3.49 X 10*6/uL (4.40-5.60); RDW 17.2 % (11.5-14.5); WBC 9.36 X 10*3/uL (4.50-10.00)
[2022-12-11 11:09] LABS: African American GFR (CKD) 117.2 (60.0-200.0); Anion Gap 8.2 mmol/L (10.00-18.00); BUN/Creat Ratio 15.62 Ratio (12.00-20.00); Blood Urea Nitrogen 10.4 mg/dL (9.0-27.0); Calcium 8.6 mg/dL (8.7-10.3); Carbon Dioxide 32.3 mmol/L (20.0-27.5); Non-African American GFR(CKD) 101.1 (60.0-200.0); Potassium 4.1 mmol/L (3.5-5.5)
--- NOTE | 2022-12-11 12:05 | CA ---
Transthoracic Echo Report Name: Wesley Gonzales Age: 67 Gender: M : 1955 Exam Date: 12/11/2022 08:12 Exam Location: [facility] Ht (in): 71 Wt (lb): 238 Ordering Physician: Qi Chapa MD Attending/Referring Phys: Eduard BROOKS Ammonia Box Tender Katy Calvin RDCS Procedure CPT: Indications: Chest Pain Cardiac Hx: Technical Quality: Technically difficult study Contrast 1: Lumason Total Dose (mL): 3 Contrast 2: Total Dose (mL): MEASUREMENTS (Male / Female) Normal Values 2D ECHO LV Diastolic Diameter PLAX 4.2 cm 4.2 - 5.9 / 3.9 - 5.3 cm LV Systolic Diameter PLAX 3.0 cm IVS Diastolic Thickness 1.3 cm 0.6 - 1.0 / 0.6 - 0.9 cm LVPW Diastolic Thickness 1.2 cm 0.6 - 1.0 / 0.6 - 0.9 cm LV Relative Wall Thickness 0.6 RV Internal Dim ED PLAX 3.3 cm LA Systolic Diameter LX 3.5 cm 3.0 - 4.0 / 2.7 - 3.8 cm LV Diastolic Volume MOD 4C 129.3 cm??? LV Systolic Volume MOD 4C 46.0 cm??? LV Ejection Fraction MOD 4C 64.4 % LV Diastolic Length 4C 7.8 cm LV Systolic Length 4C 6.0 cm LV Diastolic Volume MOD 2C 83.6 cm??? LV Systolic Volume MOD 2C 43.4 cm??? LV Ejection Fraction MOD 2C 48.1 % LV Diastolic Length 2C 7.0 cm LV Systolic Length 2C 5.9 cm LA Volume 73.4 cm??? 18 - 58 / 22 - 52 cm??? M-MODE Aortic Root Diameter MM 3.9 cm MV E Point Septal Separation 2.1 cm AV Cusp Separation MM 2.6 cm DOPPLER AV Peak Velocity 172.4 cm/s AV Peak Gradient 11.9 mmHg MV Area PHT 3.2 cm??? Mitral E Point Velocity 90.5 cm/s Mitral A Point Velocity 131.3 cm/s Mitral E to A Ratio 0.7 MV Deceleration Time 237.7 ms MV E' Velocity 7.1 cm/s Mitral E to MV E' Ratio 12.7 TR Peak Velocity 235.9 cm/s TR Peak Gradient 22.3 mmHg Right Ventricular Systolic Press 26.4 mmHg FINDINGS Left Ventricle Left ventricular ejection fraction is estimated at 55-60 %. Left ventricular cavity size normal. Mild concentric left ventricular hypertrophy. No obvious regional wall motion abnormalities. Right Ventricle Mild right ventricular dilatation. Right ventricular systolic pressure within normal limits. Right Atrium Normal right atrial size. Left Atrium Moderately increased left atrial volume. Mildly increased left atrial area. Mitral Valve Structurally normal mitral valve. Trace mitral regurgitation. Mitral valve thickened. Mild mitral annular calcification. Aortic Valve Trileaflet aortic valve. No aortic valve stenosis or regurgitation. Tricuspid Valve Trace to mild tricuspid regurgitation. Pulmonic Valve Pulmonic valve not well visualized. Pericardium Normal pericardium. No pericardial effusion. Pericardial fat pad Aorta Mild aortic dilatation at the level of the sinuses of valsalva 39 mm CONCLUSIONS Normal left ventricular ejection fraction 55-60% Mildly increased left ventricular wall thickness RVSP 26 Moderately dilated left atrium Mild mitral calcification Trace mitral regurgitation No pericardial effusion Previewed by: Dr. Zaheer Canela DO (Electronically Signed) Final Date: 11 Dec 2022 12:05
--- NOTE | 2022-12-11 13:05 | CA ---
Lexiscan Nuclear Stress Test Report Name: Wesley Gonzales Exam Date: 12/11/2022 12:02 Exam Location: [facility] Ht (in): 71 Wt (lb): 238 BSA: 2.27 Ordering Phys: Jannette Paniagua Referring Phys: BETTE, Technologist: Wesley King Age: 67 Gender: M : 1955 Procedure CPT: Indications: Reflex order-Stress test ICD-10 Codes: Patient History: Medications: see chart Meds past 24 hrs: Pretest Chest Pain: STRESS TEST Lexiscan Protocol Exercise Duration (min:sec): 01:[address] Depressions (mm): Angina Score: Xavier Score: Resting HR (bpm): 99 Peak HR (bpm): 119 Resting BP (mmHg): 124 / 79 Peak BP (mmHg): 146 / 85 MPHR: 155 Target HR: 132 % MPHR: 77 METS: 1.0 Total Dose: Peak Dose: Atropine: Double Product: 38355 BP Response: Stress Termination: INFUSION COMPLETE Stress Symptoms: no symptoms Stress Summary: ECG ANALYSIS Resting ECG: Stress ECG: CONCLUSIONS At baseline EKG showed normal sinus rhythm, normal axis, right bundle branch block and nonspecific ST depressions in the inferior leads. Patient recieved IV infusion of Lexiscan 0.4mg and at peak infusion EKG showed no significant change from baseline. Conclusions: 1. Nonspecific stress EKG portion second baseline EKG abnormalities. 2. Nuclear imaging to be reported separately. Dr. Zaheer Canela DO (Electronically Signed) Final Date: 11 Dec 2022 13:04
--- NOTE | 2022-12-11 13:24 | P.PN ---
Subjective Progress Note Date: 12/11/22 67-year-old male patient, a poor historian, with advanced oxygen-dependent COPD and a steroid dependent COPD, came into the hospital because of abdominal pain and further investigation with a CAT scan of the abdomen raised concerns for a Meckel diverticulitis. The patient was started on antibiotics and the plan is to proceed with surgery tomorrow. The pulmonary clearance was requested. He is obese. He has also known to have a right lower lobe mass that was PET avid back in 2019. Nevertheless, no further follow-up was done. 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 The patient is currently maintained on Trelegy Ellipta one inhalation a day. No significant cough or sputum production. He does have features of obstructive sleep apnea, however, this has not been diagnosed. Denies having any chest pain. No history of DVT or pulmonary embolism. Does not look to be toxic at this point in time. He is on IV antibiotics. In general, is a poor historian. His WBC count is at 10 with a hemoglobin of 9. Electrolytes are normal. UA is negative. Chest x-ray showed chronic emphysematous changes and some limited fibrotic changes in lung bases. No lung masses identified. He is currently on 3 L of oxygen nasal cannula. His functionality is limited. He does walk yet for short distances. No significant dyspnea at rest. Not using excessive muscles of breathing. On today's evaluation of 12/11/2022, the patient remains on antibiotics regarding his Meckel diverticulitis. I reviewed the CAT scan of the chest was done yesterday. There is some areas of patchy lesions which are nonspecific and needs to be followed up on outpatient basis. I do not think this should be a reason to withhold surgery on this patient. The patient was also seen by cardiology for a preoperative cardiac clearance. The patient remains on antibiotics. Blood work was reviewed. It is drop in hemoglobin down to 7.6 to be monitored. BUN is at 10 with a creatinine 0.7 and sodium levels of 141. The patient was seen by cardiology. Cardiac clearance to be given. He is considered to be high risk due to his pulmonary disease. He is going to undergo a Lexiscan cardiac stress test today. Objective - Vital Signs Vital signs: Vital Signs Temp 98 F 12/11/22 07:00 Pulse 85 12/11/22 07:00 Resp 18 12/11/22 07:00 BP 109/60 12/11/22 07:00 Pulse Ox 96 12/11/22 07:56 FiO2 Intake & Output 12/10/22 12/11/22 12/11/22 18:59 06:59 18:59 Intake Total 422 Output Total 575 Balance 422 -575 Weight 107.955 kg Intake: Oral 422 Output: Urine 575 Other: Voiding Method Toilet # Voids 100 1 - Exam Obese, comfortable BMI of 33 on oxygen at 3 L Head exam was generally normal. There was no scleral icterus or corneal arcus. Mucous membranes were moist. Neck was supple and without jugular venous distension, thyromegaly, or carotid bruits. Carotids were easily palpable bilaterally. There was no adenopathy., Metabolically less 4 with significant crowding of posterior pharynx Lungs are diminished bilaterally with scattered wheezes Cardiac exam revealed the PMI to be normally situated and sized. The rhythm was regular and no extrasystoles were noted during several minutes of auscultation. The first and second heart sounds were normal and physiologic splitting of the second heart sound was noted. There were no murmurs, rubs, clicks, or gallops. Abdominal exam revealed normal bowel sounds. The abdomen is tender and the pat ient had direct tenderness in the mid and lower abdominal area. No rebound tenderness or guarding at this point in time. All this cannot be accurately palpated. Examination of the extremities revealed easily palpable radial, femoral and pedal pulses. There was no cyanosis, clubbing or edema. Examination of the skin revealed no evidence of significant rashes, suspicious appearing nevi or other concerning lesions. Neurologically, the patient is awake and alert and the patient does not have any focal neurological deficit. Cranial nerves are essentially intact. - Labs CBC & Chem 7: 12/11/22 06:35 12/11/22 06:35 Labs: Abnormal Lab Results - Last 24 Hours (Table) 12/11/22 12/11/22 Range/Units 06:35 06:35 RBC 3.49 L (4.40-5.60) X 10*6/uL Hgb 7.6 L (13.0-17.0) g/dL Hct 27.4 L (39.6-50.0) % MCV 78.5 L (80.0-97.0) fL MCH 21.8 L (27.0-32.0) pg MCHC 27.7 L (32.0-37.0) g/dL RDW 17.2 H (11.5-14.5) % Neutrophils # 7.75 H (1.80-7.70) X 10*3/uL Lymphocytes # 0.56 L (0.90-5.00) X 10*3/uL Carbon Dioxide 32.3 H (20.0-27.5) mmol/L Anion Gap 8.20 L (10.00-18.00) mmol/L Calcium 8.6 L (8.7-10.3) mg/dL Assessment and Plan Plan: Meckel's diverticulitis with secondary abdominal pain awaiting surgical resection. Advanced oxygen-dependent COPD maintain O2 at 3 L nasal cannula, no signs of any acute COPD exacerbation Chronic dyspnea secondary to above Previous history of a right lower lobe pulmonary nodule, PET/CT avid and the patient needs to have further investigation or evaluation by another CAT scan Features of obstructive sleep apnea with obesity and a body mass index of 33 History of chronic neck and back pain History of diverticular disease History of colonic polyps Hiatal hernia. Chronic debility and impaired performance of functional status Plan Obtain a CAT scan of the chest and I reviewed the images. Lesions are nonspecific and bilateral. To be followed up on outpatient basis. Awaiting cardiac clearance Lexiscan cardiac stress test was ordered Currently on 2 L of Oxymizer nasal cannula Continue the antibiotics and monitor the hemoglobin drop Patient's COPD is chronic advanced yet stable. Obviously this carries a high risk of developing postoperative pulmonary complications due to his chronic COPD and features of THOM. The patient is made aware of those complications which may include atelectasis, pneumonias, respiratory failure requiring noninvasive p ositive pressure ventilation or intubation. Continue bronchodilators. Continue oxygen therapy Underwent a this patient with the understanding that he carries a high risk of postoperative pulmonary complications. We'll continue following up this patient, reviewed the CAT scan of the chest, and be involved in a postoperative care should there be any postoperative pulmonary complications. Will need incentive spirometer, aggressive pulmonary toileting and DVT prophylaxis.
--- NOTE | 2022-12-11 14:38 | NM ---
EXAMINATION TYPE: NM stress lexiscan cardiolite DATE OF EXAM: 12/11/2022 COMPARISON: NONE CLINICAL INDICATION: Male, 67 years old with history of CP, SOB; TECHNIQUE: After the intravenous administration of 10.2 mCi Tc 99m Sestamibi - Cardiolite resting SP ECT images acquired 45 minutes post injection. The patient received 0.4mg Lexiscan, 26.1 mCi Tc 99m Sestamibi - Stress images obtained [address] injection FINDINGS: Review of stress and rest SPECT images demonstrates moderate-sized area of fixed perfusion defect brionna ng the mid to apical inferior wall. No distinct reversibility is seen. Gated analysis shows limited augmentation of the apical inferior wall and an estimated left ventricular ejection fraction of 52 %. TID is normal at 0.89. IMPRESSION: 1. Moderate sized fixed perfusion defect along the mid to apical inferior wall could represent area o f old infarct and/or diaphragmatic attenuation artifact. Clinically correlate. No discrete reversibil ity is seen. 2. Estimated LVEF borderline diminished at 52%.
[2022-12-11 20:47] LABS: Reticulocyte % 2.49 % (0.10-1.80)
[2022-12-11 21:06] LABS: % Iron Saturation 7.27 (15.00-50.00)
--- NOTE | 2022-12-12 00:10 | PN ---
PROGRESS NOTE DATE OF SERVICE: 12/11/2022 CHIEF COMPLAINT: Abdominal pain. HISTORY OF PRESENT ILLNESS: This gentleman is doing well. His lower abdominal pain has improved. Apparently . PHYSICAL EXAMINATION: CHEST: Fairly clear. Breath sounds are diminished. CARDIAC: Normal. ABDOMEN: Soft, less tender in the right lower quadrant. IMPRESSION: 1. Meckel's diverticulitis versus diverticulitis. 2. Chronic obstructive pulmonary disease. PLAN: Cardiac workup before surgery. MMODL / IJN: [id number] /
[2022-12-12] MEDS: SYMBICORT 160-4.5 MCG INHALER INHALATION SCH ×3 (00:26→20:23)
[2022-12-12] MEDS: PIPERACILLIN-TAZOBACTAM 3.375 GM in SODIUM CHLORIDE 0.9% 100 ML IVPB SCH ×3 (03:04→21:29)
[2022-12-12 07:24] LABS: Anisocytosis Slight; Basophils % (A) 0 %; Eosinophils % (A) 0 %; HGB 7.9 gm/dL (13.0-17.5); Hypochromasia Marked; Lymphocytes # (A) 0.5 k/uL (1.0-4.8); Lymphocytes % (A) 6 %; MCH 22.4 pg (25.0-35.0); MCHC 30.3 g/dL (31.0-37.0); MCV 73.7 fL (80.0-100.0); Microcytosis Moderate; Monocytes # (A) 0.6 k/uL (0-1.0); Monocytes % (A) 8 %; Neutrophils # (A) 6.2 k/uL (1.3-7.7); Neutrophils % (A) 81 %; Platelet Count 237 k/uL (150-450); RBC 3.53 m/uL (4.30-5.90); RDW 16.7 % (11.5-15.5); WBC 7.6 k/uL (3.8-10.6)
[2022-12-12] MEDS: IPRATROPIUM-ALBUTEROL 3 ML NEB INHALATION SCH ×4 (08:08→20:23)
[2022-12-12] MEDS: FUROSEMIDE 40 MG TAB PO SCH (09:17)
[2022-12-12] MEDS: HEPARIN SODIUM,PORCINE/PF 5,000 UNIT/0.5 ML SYRINGE SQ SCH ×3 (09:17→21:29)
--- NOTE | 2022-12-12 09:38 | P.PN ---
Progress Note - Text Progress Note Date: 12/12/22 Patient states he feels better today. On exam vital signs are stable. Abdomen soft. There is no significant tenderness. Patient was scheduled for excision of Meckel's diverticulum on Wednesday with Dr. Dawkins.
[2022-12-12] MEDS: MORPHINE SULFATE 4 MG/ML SYRINGE IVP PRN ×2 (12:50→21:30)
--- NOTE | 2022-12-12 12:51 | P.PN ---
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 The patient was started on antibiotics and the plan is to proceed with surgery tomorrow. The pulmonary clearance was requested. He is obese. He has also known to have a right lower lobe mass that was PET avid back in 2019. Nevertheless, no further follow-up was done. I believe he was seen by another golf ball molder other than myself or my group. The patient is currently maintained on Trelegy Ellipta one inhalation a day. No significant cough or sputum production. He does have features of obstructive sleep apnea, however, this has not been diagnosed. Denies having any chest pain. No history of DVT or pulmonary embolism. Does not look to be toxic at this point in time. He is on IV antibiotics. In general, is a poor historian. His WBC count is at 10 with a hemoglobin of 9. Electrolytes are normal. UA is negative. Chest x-ray showed chronic emphysematous changes and some limited fibrotic changes in lung bases. No lung masses identified. He is currently on 3 L of oxygen nasal cannula. His functionality is limited. He does walk yet for short distances. No significant dyspnea at rest. Not using excessive muscles of breathing. On today's evaluation of 12/11/2022, the patient remains on antibiotics regarding his Meckel diverticulitis. I reviewed the CAT scan of the chest was done yesterday. There is some areas of patchy lesions which are nonspecific and needs to be followed up on outpatient basis. I do not think this should be a reason to withhold surgery on this patient. The patient was also seen by cardiology for a preoperative cardiac clearance. The patient remains on antibiotics. Blood work was reviewed. It is drop in hemoglobin down to 7.6 to be monitored. BUN is at 10 with a creatinine 0.7 and sodium levels of 141. The patient was seen by cardiology. Cardiac clearance to be given. He is considered to be high risk due to his pulmonary disease. He is going to undergo a Lexiscan cardiac stress test today. On 12/12/2022, the patient is resting comfortably in bed. The exact timing for surgery is not established by general surgery. The patient remains on IV Zosyn. Objective - Vital Signs Vital signs: Vital Signs Temp 97.5 F L 12/12/22 07:15 Pulse 90 12/12/22 08:16 Resp 18 12/12/22 07:15 BP 117/71 12/12/22 07:15 Pulse Ox 97 12/12/22 08:08 FiO2 Intake & Output 12/11/22 12/12/22 12/12/22 18:59 06:59 18:59 Intake Total 236 Output Total 500 800 Balance -264 -800 Intake: Oral 236 Output: Urine 500 800 Other: Voiding Method Toilet # Voids 100 # Bowel Movements 1 - Exam Obese, comfortable BMI of 33 on oxygen at 3 L Head exam was generally normal. There was no scleral icterus or corneal arcus. Mucous membranes were moist. Neck was supple and without jugular venous distension, thyromegaly, or carotid bruits. Carotids were easily palpable bilaterally. There was no adenopathy., Metabolically less 4 with significant crowding of posterior pharynx Lungs are diminished bilaterally with scattered wheezes Cardiac exam revealed the PMI to be normally situated and sized. The rhythm was regular and no extrasystoles were noted during several minutes of auscultation. The first and second heart sounds were normal and physiologic splitting of the second heart sound was noted. There were no murmurs, rubs, clicks, or gallops. Abdominal exam revealed normal bowel sounds. The abdomen is tender and the patient had direct tenderness in the mid and lower abdominal area. No rebound tenderness or guarding at this point in time. All this cannot be accurately palpated. Examination of the extremities revealed easily palpable radial, femoral and pedal pulses. There was no cyanosis, clubbing or edema. Examination of the skin revealed no evidence of significant rashes, suspicious appearing nevi or other concerning lesions. Neurologically, the patient is awake and alert and the patient does not have any focal neurological deficit. Cranial nerves are essentially intact. - Labs CBC & Chem 7: 12/12/22 06:38 12/11/22 06:35 Labs: Abnormal Lab Results - Last 24 Hours (Table) 12/11/22 12/11/22 12/11/22 Range/Units 06:35 06:35 13:00 RBC 3.49 L (4.40-5.60) X 10*6/uL Hgb 7.6 L (13.0-17.0) g/dL Hct 27.4 L (39.6-50.0) % MCV 78.5 L (80.0-97.0) fL MCH 21.8 L (27.0-32.0) pg MCHC 27.7 L (32.0-37.0) g/dL RDW 17.2 H (11.5-14.5) % Neutrophils # 7.75 H (1.80-7.70) X 10*3/uL Lymphocytes # 0.56 L (0.90-5.00) X 10*3/uL Retic Count (0.10-1.80) % Carbon Dioxide 32.3 H (20.0-27.5) mmol/L Anion Gap 8.20 L (10.00-18.00) mmol/L Calcium 8.6 L (8.7-10.3) mg/dL Iron 23 L (65-175) ug/dL % Saturation 7.27 L (15.00-50.00) 12/11/22 12/12/22 Range/Units 13:00 06:38 RBC 3.53 L (4.40-5.60) X 10*6/uL Hgb 7.9 L (13.0-17.0) g/dL Hct 26.0 L (39.6-50.0) % MCV 73.7 L (80.0-97.0) fL MCH 22.4 L (27.0-32.0) pg MCHC 30.3 L (32.0-37.0) g/dL RDW 16.7 H (11.5-14.5) % Neutrophils # (1.80-7.70) X 10*3/uL Lymphocytes # 0.5 L (0.90-5.00) X 10*3/uL Retic Count 2.49 H (0.10-1.80) % Carbon Dioxide (20.0-27.5) mmol/L Anion Gap (10.00-18.00) mmol/L Calcium (8.7-10.3) mg/dL Iron (65-175) ug/dL % Saturation (15.00-50.00) Assessment and Plan Plan: Meckel's diverticulitis with secondary abdominal pain awaiting surgical r esection. Advanced oxygen-dependent COPD maintain O2 at 3 L nasal cannula, no signs of any acute COPD exacerbation Chronic dyspnea secondary to above Previous history of a right lower lobe pulmonary nodule, PET/CT avid and the patient needs to have further investigation or evaluation by another CAT scan Features of obstructive sleep apnea with obesity and a body mass index of 33 History of chronic neck and back pain History of diverticular disease History of colonic polyps Hiatal hernia. Chronic debility and impaired performance of functional status Plan Awaiting surgery to be scheduled by Dr. Dawkins Continue IV Zosyn CAT scan of the chest was noted and is also discussed Awaiting cardiac clearance Lexiscan cardiac stress test was ordered Currently on 2 L of O2 nasal cannula Continue the antibiotics and monitor the hemoglobin drop Patient's COPD is chronic advanced yet stable. Obviously this carries a high risk of developing postoperative pulmonary complications due to his chronic COPD and features of THOM. The patient is made aware of those complications which may include atelectasis, pneumonias, respiratory failure requiring noninvasive positive pressure ventilation or intubation. Continue bronchodilators. Continue oxygen therapy Underwent a this patient with the understanding that he carries a high risk of postoperative pulmonary complications. We'll continue following up this patient, reviewed the CAT scan of the chest, and be involved in a postoperative care should there be any postoperative pulmonary complications. Will need incentive spirometer, aggressive pulmonary toileting and DVT prophylaxis.
--- NOTE | 2022-12-12 15:59 | P.PN ---
Subjective Progress Note Date: 12/12/22 This is Arie Bustillo NP, I'm dictating on behalf of Dr. Mora's H&P and A&P. Patient was interviewed and examined. Patient reports today that he is feeling fine, denies chest pain and shortness of breath. Review of Echo shows the patient has an EF of 55-60%. Lexiscan stress test shows an area of fixed defect, with no reversible ischemia. Patient is also noted to have iron deficiency anemia. GENERAL: Well-appearing, well-nourished and in no acute distress. NECK: Supple without JVD or thyromegaly. LUNGS: Breath sounds clear to auscultation bilaterally. Respiration equal and unlabored. No wheezes, rales or rhonchi. HEART: Regular rate and rhythm without murmurs, rubs or gallops. S1 and S2 heard. EXTREMITIES: Normal range of motion, no edema. No clubbing or cyanosis. Peripheral pulses intact and strong. VITALS: Temp 97.5, pulse 89, respirations 18, blood pressure 117/71, O2 saturation 95% on 2 L TELEMETRY: Normal sinus rhythm LABS: White count 7.6, hemoglobin 7.9, platelets 237, sodium 141, potassium 4.1, chloride 100, BUN 10.4, creatinine 0.7, calcium 8.6, iron 23, TIBC 322, % saturation 7.27, transferrin 230, folate 12.7 IMPRESSION: 1. Acute on chronic abdominal pain 2. Meckel's diverticulitis, pending bowel resection 3. Vague complaints of chest pain 2-3 months 4. Advanced COPD 5. Chronic hypoxic respiratory failure on home O2 6. Former nicotine dependence 7. Former EtOH use 8. Morbid obesity PLAN: Start atorvastatin 20 mg daily Patient is stable from a cardiovascular standpoint. May proceed with surgery. Patient is high risk secondary to chronic lung disease, if necessary or desired recommend pulmonary evaluation. Thank for allowing us to participate in the care of this patient. No further recommendations from a cardiac standpoint. Objective - Vital Signs Vital signs: Vital Signs Temp 97.5 F L 12/12/22 07:15 Pulse 90 12/12/22 08:16 Resp 18 12/12/22 07:15 BP 117/71 12/12/22 07:15 Pulse Ox 97 12/12/22 08:08 FiO2 Intake & Output 12/11/22 12/12/22 12/12/22 18:59 06:59 18:59 Intake Total 236 Output Total 500 800 Balance -264 -800 Intake: Oral 236 Output: Urine 500 800 Other: Voiding Method Toilet # Voids 100 # Bowel Movements 1 - Labs CBC & Chem 7: 12/12/22 06:38 12/11/22 06:35 Labs: Abnormal Lab Results - Last 24 Hours (Table) 12/11/22 12/11/22 12/11/22 Range/Units 06:35 06:35 13:00 RBC 3.49 L (4.40-5.60) X 10*6/uL Hgb 7.6 L (13.0-17.0) g/dL Hct 27.4 L (39.6-50.0) % MCV 78.5 L (80.0-97.0) fL MCH 21.8 L (27.0-32.0) pg MCHC 27.7 L (32.0-37.0) g/dL RDW 17.2 H (11.5-14.5) % Neutrophils # 7.75 H (1.80-7.70) X 10*3/uL Lymphocytes # 0.56 L (0.90-5.00) X 10*3/uL Retic Count (0.10-1.80) % Carbon Dioxide 32.3 H (20.0-27.5) mmol/L Anion Gap 8.20 L (10.00-18.00) mmol/L Calcium 8.6 L (8.7-10.3) mg/dL Iron 23 L (65-175) ug/dL % Saturation 7.27 L (15.00-50.00) 12/11/22 12/12/22 Range/Units 13:00 06:38 RBC 3.53 L (4.40-5.60) X 10*6/uL Hgb 7.9 L (13.0-17.0) g/dL Hct 26.0 L (39.6-50.0) % MCV 73.7 L (80.0-97.0) fL MCH 22.4 L (27.0-32.0) pg MCHC 30.3 L (32.0-37.0) g/dL RDW 16.7 H (11.5-14.5) % Neutrophils # (1.80-7.70) X 10*3/uL Lymphocytes # 0.5 L (0.90-5.00) X 10*3/uL Retic Count 2.49 H (0.10-1.80) % Carbon Dioxide (20.0-27.5) mmol/L Anion Gap (10.00-18.00) mmol/L Calcium (8.7-10.3) mg/dL Iron (65-175) ug/dL % Saturation (15.00-50.00)
[2022-12-12] MEDS: ATORVASTATIN 20 MG TAB PO SCH (21:29)
[2022-12-12] MEDS: CALCIUM CARBONATE 500 MG CHEWABLE PO PRN (21:29)
[2022-12-13] MEDS: PIPERACILLIN-TAZOBACTAM 3.375 GM in SODIUM CHLORIDE 0.9% 100 ML IVPB SCH ×3 (03:14→20:48)
[2022-12-13] MEDS: IPRATROPIUM-ALBUTEROL 3 ML NEB INHALATION SCH ×4 (08:51→20:12)
[2022-12-13] MEDS: SYMBICORT 160-4.5 MCG INHALER INHALATION SCH ×2 (08:51→20:11)
[2022-12-13] MEDS: HEPARIN SODIUM,PORCINE/PF 5,000 UNIT/0.5 ML SYRINGE SQ SCH ×3 (08:52→23:40)
[2022-12-13] MEDS: MORPHINE SULFATE 4 MG/ML SYRINGE IVP PRN ×3 (08:52→23:40)
[2022-12-13] MEDS: FUROSEMIDE 40 MG TAB PO SCH (08:52)
--- NOTE | 2022-12-13 11:15 | P.PN ---
Subjective Progress Note Date: 12/13/22 67-year-old male patient, a poor historian, with advanced oxygen-dependent COPD and a steroid dependent COPD, came into the hospital because of abdominal pain and further investigation with a CAT scan of the abdomen raised concerns for a Meckel diverticulitis. The patient was started on antibiotics and the plan is to proceed with surgery tomorrow. The pulmonary clearance was requested. He is obese. He has also known to have a right lower lobe mass that was PET avid back in 2019. Nevertheless, no further follow-up was done. I believe he was seen by another sponge fisherman other than myself or my group. The patient is currently maintained on Trelegy Ellipta one inhalation a day. No significant cough or sputum production. He does have features of obstructive sleep apnea, however, this has not been diagnosed. Denies having any chest pain. No history of DVT or pulmonary embolism. Does not look to be toxic at this point in time. He is on IV antibiotics. In general, is a poor historian. His WBC count is at 10 with a hemoglobin of 9. Electrolytes are normal. UA is negative. Chest x-ray showed chronic emphysematous changes and some limited fibrotic changes in lung bases. No lung masses identified. He is currently on 3 L of oxygen nasal cannula. His functionality is limited. He does walk yet for short distances. No significant dyspnea at rest. Not using excessive muscles of breathing. On today's evaluation of 12/11/2022, the patient remains on antibiotics regarding his Meckel diverticulitis. I reviewed the CAT scan of the chest was done yesterday. There is some areas of patchy lesions which are nonspecific and needs to be followed up on outpatient basis. I do not think this should be a reason to withhold surgery on this patient. The patient was also seen by cardiology for a preoperative cardiac clearance. The patient remains on antibiotics. Blood work was reviewed. It is drop in hemoglobin down to 7.6 to be monitored. BUN is at 10 with a creatinine 0.7 and sodium levels of 141. The patient was seen by cardiology. Cardiac clearance to be given. He is considered to be high risk due to his pulmonary disease. He is going to undergo a Lexiscan cardiac stress test today. On 12/12/2022, the patient is resting comfortably in bed. The exact timing for surgery is not established by general surgery. The patient remains on IV Zosyn. On 12/13/2022, the patient's abdominal pain is subsided. Yesterday. He is being readied to undergo a surgical resection of a Meckel's diverticulitis in a.m. by general surgery. The patient remains on IV Zosyn. The patient is afebrile and hemodynamically stable. White cell cause of 7.6 with a hemoglobin of 7.9 and platelet count of 237. Electrolytes are essentially within normal limits. Objective - Vital Signs Vital signs: Vital Signs Temp 98.5 F 12/13/22 07:00 Pulse 92 12/13/22 09:01 Resp 18 12/13/22 07:00 BP 118/71 12/13/22 07:00 Pulse Ox 95 12/13/22 07:00 FiO2 Intake & Output 12/12/22 12/13/22 12/13/22 18:59 06:59 18:59 Intake Total 236 118 Output Total 700 Balance -464 118 Intake: Oral 236 118 Output: Urine 700 Other: Voiding Method Toilet # Voids 1 - Exam Obese, comfortable BMI of 33 on oxygen at 3 L Head exam was generally normal. There was no scleral icterus or corneal arcus. Mucous membranes were moist. Neck was supple and without jugular venous distension, thyromegaly, or carotid bruits. Carotids were easily palpable bilaterally. There was no adenopathy., Metabolically less 4 with significant crowding of posterior pharynx Lungs are diminished bilaterally with scattered wheezes Cardiac exam revealed the PMI to be normally situated and sized. The rhythm was regular and no extrasystoles were noted during several minutes of auscultation. The first and second heart sounds were normal and physiologic splitting of the second heart sound was noted. There were no murmurs, rubs, clicks, or gallops. Abdominal exam revealed normal bowel sounds. The abdomen is tender and the patient had direct tenderness in the mid and lower abdominal area. No rebound tenderness or guarding at this point in time. All this cannot be accurately palpated. Examination of the extremities revealed easily palpable radial, femoral and pedal pulses. There was no cyanosis, clubbing or edema. Examination of the skin revealed no evidence of significant rashes, suspicious appearing nevi or other concerning lesions. Neurologically, the patient is awake and alert and the patient does not have any focal neurological deficit. Cranial nerves are essentially intact. - Labs CBC & Chem 7: 12/12/22 06:38 12/11/22 06:35 Labs: Microbiology - Last 24 Hours (Table) 12/10/22 06:16 Blood Culture - Preliminary Blood 12/10/22 05:55 Blood Culture - Preliminary Blood Assessment and Plan Plan: Meckel's diverticulitis with secondary abdominal pain awaiting surgical resection. Abdominal pain is subsiding Advanced oxygen-dependent COPD maintain O2 at 3 L nasal cannula, no signs of any acute COPD exacerbation, no worsening shortness of breath and pulmonary status is stable Chronic dyspnea secondary to above Previous history of a right lower lobe pulmonary nodule, PET/CT avid and the patient needs to have further investigation or evaluation by another CAT scan Features of obstructive sleep apnea with obesity and a body mass index of 33 History of chronic neck and back pain History of diverticular disease History of colonic polyps Hiatal hernia. Chronic debility and impaired performance of functional status Plan Clinically stable Awaiting surgery to be scheduled by Dr. Dawkins Continue IV Zosyn, currently afebrile CAT scan of the chest was noted and is also discussed Awaiting cardiac clearance Lexiscan cardiac stress test was ordered Currently on 2 L of O2 nasal cannula Continue the antibiotics and monitor the hemoglobin drop Patient's COPD is chronic advanced yet stable. Obviously this carries a high risk of developing postoperative pulmonary complications due to his chronic COPD and features of THOM. The patient is made aware of those complications which may include atelectasis, pneumonias, respiratory failure requiring noninvasive positive pressure ventilation or intubation. Continue bronchodilators. Continue oxygen therapy Underwent a this patient with the understanding that he carries a high risk of postoperative pulmonary complications. We'll continue following up this patient, reviewed the CAT scan of the chest, and be involved in a postoperative care should there be any postoperative pulmonary complications. Will need incentive spirometer, aggressive pulmonary toileting and DVT prophylaxis.
--- NOTE | 2022-12-13 12:41 | P.PN ---
Progress Note - Text Progress Note Date: 12/13/22 The patient feels better today. He denies any significant abdominal pain. On exam vital signs are stable. Abdomen soft. Patient scheduled for excision of Meckel's diverticulum tomorrow with Dr. Dawkins.
[2022-12-13] MEDS: CALCIUM CARBONATE 500 MG CHEWABLE PO PRN ×3 (12:49→20:48)
[2022-12-13] MEDS: PANTOPRAZOLE 40 MG TABLET PO SCH (17:39)
[2022-12-13] MEDS ORDERED: IPRATROPIUM-ALBUTEROL 3 ML NEB ONE (19:27)
[2022-12-13] MEDS: ATORVASTATIN 20 MG TAB PO SCH (20:46)
[2022-12-14] MEDS: PIPERACILLIN-TAZOBACTAM 3.375 GM in SODIUM CHLORIDE 0.9% 100 ML IVPB SCH ×3 (02:51→22:24)
[2022-12-14] MEDS: PANTOPRAZOLE 40 MG TABLET PO SCH (06:32)
[2022-12-14 07:20] LABS: Anisocytosis Slight; Basophils % (A) 0 %; Eosinophils # (A) 0.2 k/uL (0-0.7); Eosinophils % (A) 3 %; HCT 29.5 % (39.0-53.0); HGB 8.7 gm/dL (13.0-17.5); Hypochromasia Marked; Lymphocytes # (A) 0.5 k/uL (1.0-4.8); Lymphocytes % (A) 9 %; MCH 22.5 pg (25.0-35.0); MCHC 29.5 g/dL (31.0-37.0); MCV 76.2 fL (80.0-100.0); Mean Platelet Volume 8.4; Microcytosis Slight; Monocytes # (A) 0.4 k/uL (0-1.0); Monocytes % (A) 7 %; Neutrophils # (A) 4.4 k/uL (1.3-7.7); Neutrophils % (A) 77 %; Platelet Count 257 k/uL (150-450); RBC 3.87 m/uL (4.30-5.90); RDW 16.6 % (11.5-15.5); WBC 5.7 k/uL (3.8-10.6)
[2022-12-14 07:28] LABS: ALT 16 U/L (4-49); AST 19 U/L (17-59); African American GFR (CKD) >90 (>60 ml/min/1.73 sqM); Albumin 3.5 g/dL (3.5-5.0); Albumin/Globulin Ratio 1.3; Alkaline Phosphatase 71 U/L (38-126); Anion Gap 7 mmol/L; Blood Urea Nitrogen 8 mg/dL (9-20); Calcium 8.8 mg/dL (8.4-10.2); Carbon Dioxide 36 mmol/L (22-30); Chloride 98 mmol/L (98-107); Globulin 2.6 g/dL; Glucose 94 mg/dL (74-99); Non-African American GFR(CKD) >90 (>60 ml/min/1.73 sqM); Potassium 3.5 mmol/L (3.5-5.1); Sodium 141 mmol/L (137-145); Total Bilirubin 0.4 mg/dL (0.2-1.3); Total Protein 6.1 g/dL (6.3-8.2)
[2022-12-14] MEDS: SYMBICORT 160-4.5 MCG INHALER INHALATION SCH ×2 (08:35→20:06)
[2022-12-14] MEDS: IPRATROPIUM-ALBUTEROL 3 ML NEB INHALATION SCH ×4 (08:35→20:06)
[2022-12-14] MEDS: HEPARIN SODIUM,PORCINE/PF 5,000 UNIT/0.5 ML SYRINGE SQ SCH ×3 (08:52→22:45)
[2022-12-14] MEDS: FUROSEMIDE 40 MG TAB PO SCH (08:52)
[2022-12-14] MEDS: MORPHINE SULFATE 4 MG/ML SYRINGE IVP PRN ×2 (08:52→13:19)
[2022-12-14 11:18] LABS: Ferritin 63.6 ng/mL (22.0-322.0)
--- NOTE | 2022-12-14 11:24 | P.PN ---
Subjective Progress Note Date: 12/14/22 67-year-old male patient, a poor historian, with advanced oxygen-dependent COPD and a steroid dependent COPD, came into the hospital because of abdominal pain and further investigation with a CAT scan of the abdomen raised concerns for a Meckel diverticulitis. The patient was started on antibiotics and the plan is to proceed with surgery tomorrow. The pulmonary clearance was requested. He is obese. He has also known to have a right lower lobe mass that was PET avid back in 2019. Nevertheless, no further follow-up was done. I believe he was seen by another cabin supervisor other than myself or my group. The patient is currently maintained on Trelegy Ellipta one inhalation a day. No significant cough or sputum production. He does have features of obstructive sleep apnea, however, this has not been diagnosed. Denies having any chest pain. No history of DVT or pulmonary embolism. Does not look to be toxic at this point in time. He is on IV antibiotics. In general, is a poor historian. His WBC count is at 10 with a hemoglobin of 9. Electrolytes are normal. UA is negative. Chest x-ray showed chronic emphysematous changes and some limited fibrotic changes in lung bases. No lung masses identified. He is currently on 3 L of oxygen nasal cannula. His functionality is limited. He does walk yet for short distances. No significant dyspnea at rest. Not using excessive muscles of breathing. On today's evaluation of 12/11/2022, the patient remains on antibiotics regarding his Meckel diverticulitis. I reviewed the CAT scan of the chest was done yesterday. There is some areas of patchy lesions which are nonspecific and needs to be followed up on outpatient basis. I do not think this should be a reason to withhold surgery on this patient. The patient was also seen by cardiology for a preoperative cardiac clearance. The patient remains on antibiotics. Blood work was reviewed. It is drop in hemoglobin down to 7.6 to be monitored. BUN is at 10 with a creatinine 0.7 and sodium levels of 141. The patient was seen by cardiology. Cardiac clearance to be given. He is considered to be high risk due to his pulmonary disease. He is going to undergo a Lexiscan cardiac stress test today. On 12/12/2022, the patient is resting comfortably in bed. The exact timing for surgery is not established by general surgery. The patient remains on IV Zosyn. On 12/13/2022, the patient's abdominal pain is subsided. Yesterday. He is being readied to undergo a surgical resection of a Meckel's diverticulitis in a.m. by general surgery. The patient remains on IV Zosyn. The patient is afebrile and hemodynamically stable. White cell cause of 7.6 with a hemoglobin of 7.9 and platelet count of 237. Electrolytes are essentially within normal limits. The patient is seen today 12/14/2022 in follow-up on the regular medical floor. He is currently sitting up in a chair at the bedside. Awake and alert in no acute distress. He is maintaining O2 saturations in the 90s on 2 L/m per nasal cannula. He does have oxygen. His FEV1 value 26% of predicted. Blood cultures reveal no growth to date. White count 5.7. Hemoglobin 8.7. Platelets 257. Sodium 141. Potassium 3.5. Bicarb 36. BUN 8. Creatinine 0.65. He is continued on Symbicort, DuoNeb inhalations, antibiotics in the form of Zosyn. Heparin for DVT prophylaxis. Remains on oral diuretics. Objective - Vital Signs Vital signs: Vital Signs Temp 98.0 F 12/14/22 07:00 Pulse 96 12/14/22 08:48 Resp 20 12/14/22 07:00 BP 148/84 12/14/22 07:00 Pulse Ox 95 12/14/22 08:35 FiO2 Intake & Output 12/13/22 12/14/22 12/14/22 18:59 06:59 18:59 Intake Total 236 Output Total 200 Balance 36 Intake: Oral 236 Output: Urine 200 Other: # Voids 2 - Exam GENERAL EXAM: Alert, pleasant 67-year-old male, up in a chair, on 2 L nasal cannula, comfortable in no apparent distress. HEAD: Normocephalic. EYES: Normal reaction of pupils, equal size. NOSE: Clear with pink turbinates. THROAT: No erythema or exudates. NECK: No masses, no JVD. CHEST: No chest wall deformity. LUNGS: Equal air entry with no crackles, wheeze, rhonchi or dullness. CVS: S1 and S2 normal with no audible murmur, regular rhythm. ABDOMEN: Tenderness over the mid and lower abdominal area. No hepatosplenomegaly, normal bowel sounds, no guarding or rigidity. SPINE: No scoliosis or deformity SKIN: No rashes CENTRAL NERVOUS SYSTEM: No focal deficits, tone is normal in all 4 extremities. EXTREMITIES: There is no peripheral edema. No clubbing, no cyanosis. Per ipheral pulses are intact. - Labs CBC & Chem 7: 12/14/22 06:49 12/14/22 06:49 Labs: Abnormal Lab Results - Last 24 Hours (Table) 12/14/22 12/14/22 Range/Units 06:49 06:49 RBC 3.87 L (4.30-5.90) m/uL Hgb 8.7 L (13.0-17.5) gm/dL Hct 29.5 L (39.0-53.0) % MCV 76.2 L (80.0-100.0) fL MCH 22.5 L (25.0-35.0) pg MCHC 29.5 L (31.0-37.0) g/dL RDW 16.6 H (11.5-15.5) % Lymphocytes # 0.5 L (1.0-4.8) k/uL Carbon Dioxide 36 H (22-30) mmol/L BUN 8 L (9-20) mg/dL Creatinine 0.65 L (0.66-1.25) mg/dL Total Protein 6.1 L (6.3-8.2) g/dL Microbiology - Last 24 Hours (Table) 12/10/22 06:16 Blood Culture - Preliminary Blood 12/10/22 05:55 Blood Culture - Preliminary Blood Assessment and Plan Assessment: Meckel's diverticulitis with secondary abdominal pain awaiting surgical res ection. Abdominal pain is subsiding Advanced oxygen-dependent COPD maintain O2 at 3 L nasal cannula, no signs of any acute COPD exacerbation, no worsening shortness of breath and pulmonary status is stable Chronic dyspnea secondary to above Previous history of a right lower lobe pulmonary nodule, PET/CT avid and the patient needs to have further investigation or evaluation by another CAT scan Features of obstructive sleep apnea with obesity and a body mass index of 33 History of chronic neck and back pain History of diverticular disease History of colonic polyps Hiatal hernia. Chronic debility and impaired performance of functional status Plan: The patient was seen and evaluated Labs and medications reviewed Plan is for possible surgical intervention today We will continue to follow postoperatively Educated regarding using incentive spirometer Continue bronchodilators We'll continue to follow I have personally seen and examined the patient, performed the documentation and the assessment and plan as written. Number of minutes spent on the visit: 10.
--- NOTE | 2022-12-14 11:32 | PN ---
PROGRESS NOTE CHIEF COMPLAINT: Meckel's diverticulitis. HISTORY OF PRESENT ILLNESS: This gentleman is doing well, is expecting to go to the OR today. PHYSICAL EXAMINATION: GENERAL: He is afebrile. CHEST: Clear. CARDIAC: Normal. ABDOMEN: Still a little bit tender in the right lower quadrant. IMPRESSION: Meckel's diverticulitis. PLAN: Surgery today. MMODL / MARIA ISABELN: [id number] /
[2022-12-14] MEDS ORDERED: LACTATED RINGERS 1,000 ML IV ONE ×2 (15:50→19:55)
[2022-12-14] MEDS ORDERED: ONDANSETRON 4 MG/2 ML VIAL ONE (16:18)
[2022-12-14] MEDS ORDERED: ONDANSETRON 4 MG/2 ML VIAL IVP ONE (17:07)
[2022-12-14] MEDS ORDERED: DEXAMETHASONE SOD PHOSPHATE 4 MG/ML 1 ML VIAL IVP ONE (17:08)
[2022-12-14] MEDS ORDERED: MIDAZOLAM 2 MG/2 ML VIAL IVP ONE (17:13)
[2022-12-14] MEDS ORDERED: HEPARIN SODIUM,PORCINE 5,000 UNIT/ML 1 ML VIAL SQ ONE (17:20)
[2022-12-14] MEDS ORDERED: ROPIVACAINE 5 MG/ML 30 ML VIAL ONE (17:21)
[2022-12-14] MEDS ORDERED: NEOSTIGMINE 1 MG/ML 10 ML VIAL ONE (17:21)
[2022-12-14] MEDS ORDERED: SUCCINYLCHOLINE CHLORIDE 200 MG/10 ML VIAL IV ONE (17:21)
[2022-12-14] MEDS ORDERED: GLYCOPYRROLATE 0.2 MG/ML 2 ML VIAL ONE (17:21)
[2022-12-14] MEDS ORDERED: ROCURONIUM 10 MG/ML (5 ML VIAL) IV ONE (17:21)
[2022-12-14] MEDS ORDERED: PROPOFOL 10 MG/ML 20 ML VIAL IV ONE (17:21)
[2022-12-14] MEDS ORDERED: fentaNYL (PF) 50 MCG/ML 2 ML AMP ONE (17:21)
[2022-12-14] MEDS ORDERED: PHENYLEPHRINE-0.9% NACL SYG 1,000 MCG/10 ML SYRINGE ONE (17:21)
[2022-12-14] MEDS ORDERED: HYDROmorphone (PF) 1 MG/ML ONE (17:21)
--- NOTE | 2022-12-14 17:26 | P.PN ---
Subjective Progress Note Date: 12/14/22 CHIEF COMPLAINT: Abdominal pain HISTORY OF PRESENT ILLNESS: The patient is a 67-year-old L admitted with abdominal pain. CT findings were consistent with Meckel diverticulitis. He obtained cardiac risk assessment and was cleared by the brake assembler him. Patient complains of right lower quadrant abdominal pain despite treatment with antibiotics. Patient has chronic obstructive pulmonary disease and also cleared by pulmonary team. ROS: No fevers or chills. No new chest pain. No productive sputum PHYSICAL EXAM: VITAL SIGNS: Reviewed CONSTITUTIONAL: Well developed and in no acute distress. EYES: Conjuctivae without sclera icterus. Extraocular movements grossly intact. HEAD, EARS, NOSE, THROAT: Moist buccal mucosa. Head is atraumatic, normocephalic. Hears conversational speech. No nasal drainage. RESPIRATORY: Non-labored respirations and equal bilateral excursions. CARDIOVASCULAR: Palpable 2+ radial pulses. ABDOMEN: Tender in the right lower quadrant. MUSCULOSKELETAL: No gross deformity of the lower extremities noted. No clubbing. No cyanosis. SKIN: Good skin turgor. Well perfused. NEUROLOGIC: Cranial nerves II through XII grossly intact. No focal or lateralizing signs. PSYCH: Appropriate affect. Alert and oriented to person, place and time. CLINICAL LABS: Reviewed. Hemoglobin low, anemia 8.7. No leukocytosis. REPORTS: Stress echo report reviewed demonstrates 55% ejection fraction Lexican chemical stress test demonstrates apical perfusion defect. ASSESSMENT: 1. Meckel's diverticulitis 2. Chronic obstructive pulmonary disease 3. Right lower quadrant abdominal pain PLAN: 1. Patient reports persistent right lower quadrant abdominal pain despite an tibiotics. Small bowel resection of Meckel's diverticulum with primary anastomosis and appendectomy described. Informed consent obtained from his guardian. 2. He is elevated risk due to pre-existing cardiopulmonary disease 3. CBC, CMP and type and screen ordered and obtained Objective - Vital Signs Vital signs: Vital Signs Temp 98.6 F 12/14/22 15:45 Pulse 87 12/14/22 15:45 Resp 18 12/14/22 15:45 BP 127/73 12/14/22 15:45 Pulse Ox 96 12/14/22 15:45 FiO2 Intake & Output 12/13/22 12/14/22 12/14/22 18:59 06:59 18:59 Intake Total 236 Output Total 200 Balance 36 Intake: Oral 236 Output: Urine 200 Other: # Voids 2 1 - Labs CBC & Chem 7: 12/14/22 06:49 12/14/22 06:49 Labs: Abnormal Lab Results - Last 24 Hours (Table) 12/14/22 12/14/22 Range/Units 06:49 06:49 RBC 3.87 L (4.30-5.90) m/uL Hgb 8.7 L (13.0-17.5) gm/dL Hct 29.5 L (39.0-53.0) % MCV 76.2 L (80.0-100.0) fL MCH 22.5 L (25.0-35.0) pg MCHC 29.5 L (31.0-37.0) g/dL RDW 16.6 H (11.5-15.5) % Lymphocytes # 0.5 L (1.0-4.8) k/uL Carbon Dioxide 36 H (22-30) mmol/L BUN 8 L (9-20) mg/dL Creatinine 0.65 L (0.66-1.25) mg/dL Total Protein 6.1 L (6.3-8.2) g/dL Microbiology - Last 24 Hours (Table) 12/10/22 06:16 Blood Culture - Preliminary Blood 12/10/22 05:55 Blood Culture - Preliminary Blood
--- NOTE | 2022-12-14 17:38 | P.ANPRN ---
Procedure Note - Anesthesia - Nerve Block Performed Bilateral Erector Spinae Single Time Out Performed: Yes (1713) Date of Procedure: 12/14/22 Procedure Start Time: 17:14 Procedure Stop Time: 17:19 Location of Patient: PreOp Indication: Acute Post-Operative Pain, Requested by Surgeon Specifically requested for management of pain by : Qi Chapa Sedation Type: Sedate with meaningful contact maintained Preparation: Sterile Prep Position: Sitting Catheter: None Needle Types: Pajunk Needle Gauge: 21 Ultrasound used to visualize needle placement: Yes Ultrasound used to observe medication spread: Yes Injectate: 0.5% Ropivacaine (see comment for volume) (20cc each side) Blood Aspirated: No Pain Paresthesia on Injection Noted: No Resistance on Injection: Normal Image Stored and Saved: Yes Events: Uneventful and Well Tolerated
[2022-12-14] MEDS ORDERED: BUPIVACAINE (PF) 0.5% 30 ML VIAL SQ ONE (18:06)
[2022-12-14] MEDS ORDERED: ONDANSETRON 4 MG/2 ML VIAL IVP PRN (20:01)
--- NOTE | 2022-12-14 20:30 | P.OP ---
Date of Procedure: 12/14/22 Description of Procedure: SURGEON: BEATRICE URBANO MD Preoperative Diagnosis: 1. Meckel's diverticulitis 2. Right lower quadrant abdominal pain 3. Severe chronic obstructive pulmonary disease, oxygen dependent 4. Gastroesophageal reflux disease 5. Obesity due to excess calories, BMI 33.2 6. Steroid-dependent, prednisone 7. Depressive disorder 8. Chronic bronchitis Postoperative Diagnosis: 1. Meckel's diverticulitis 2. Right lower quadrant abdominal pain 3. Severe chronic obstructive pulmonary disease, oxygen dependent 4. Gastroesophageal reflux disease 5. Obesity due to excess calories, BMI 33.2 6. Steroid-dependent, prednisone 7. Depressive disorder 8. Chronic bronchitis 9. Appendicitis, retrocecal 10. Cirrhosis of the liver Procedure(s) Performed: 1. Robotic-assisted daVinci Xi laparoscopic small bowel resection of Meckel's diverticulitis 2. Robotic-assisted daVinci Xi laparoscopic appendectomy Anesthesia: GETA, local, regional block Estimated Blood Loss (ml): 20 Pathology: 1. Meckel's diverticulitis 2. Appendix 3. Anastomosis Condition: stable Disposition: floor Operative Findings: 1. Meckel's diverticulitis within 2 feet of the ileocecal valve 2. Meckel's diverticulitis, 2 inches in length, without diffuse peritonitis 3. Retrocecal appendicitis 4. Dilated sigmoid without active volvulus INDICATIONS: Preoperatively, the abdomen was marked for location of pain. The patient is a 67-year-old male who presented with right lower quadrant and sup rapubic abdominal pain. Diagnostic studies demonstrated Meckel's diverticulitis with possible overlying appendicitis. He was placed on antibiotic management. Pulmonary including cardiac risk assessment was performed to optimize him for surgery as he is high risk. Benefits and risks, including infection, open surgery, and possibility for additional surgery was discussed at length. Informed consent was obtained from his guardian. DESCRIPTION: The patient was transferred to the operating room after regional block from anesthesia. He was placed in supine position. The patient tolerated general induction.The abdomen was then prepped and draped in standard sterile fashion as Ioban was placed along the abdomen to minimize any contamination of skin floor. After a timeout protocol was performed, attention was then brought to the left upper quadrant whereby a 0 degree 5 mm laparoscopic trocar entry was performed. The abdominal cavity was entered and insufflated to 15 mmHg pressure, which was tolerated well. Diagnostic laparoscopy demonstrated no injury to bowel, viscera or mesentery. Adhesions along the right lower quadrant was identified of small bowel to the suprapubic right lower quadrant consistent with this area of pain. Next two robotic 12-mm trocars were placed along the left upper quadrant after exchanging the 5 mm trocar. Two 8 mm ports were placed along the left lower quadrant and left lateral abdominal wall. Ports were placed 10 cm apart from each other including 15-20 cm away from the target anatomy of the right pelvis. The patient was then placed in Trendelenburg position, at least 7 and right side up at least 7. The robotic da Catarina XI system was primed and docked from the left side of the patient. Using atraumatic graspers and vessel sealer, the robotic system was docked and primed as described. Instruments were interchanged by the compliance assistant including graspers, robotic stapler and vessel sealer. Next, attention was brought to identify the cecum. A systematic view within the abdominal cavity was started on the base of the cecum to the ileocecal valve. Proximally, the small bowel was investigated with inflammation found within 2 feet of the ileocecal valve. An inflamed Meckel's diverticulitis was lysed and dissected from surrounding tissue. Meckel's diverticulitis was 2 inches in length. Proximally and distally, the small bowel was tagged using 3-0 silk. Robotic 60 mm staple load white load and blue loads were used to divide the small bowel along the antimesenteric border above and below the Meckel's. Borders of 4-cm were obtained around the Meckel's diverticulum. The mesentery was mobilized using vessel sealer. Hemostasis was checked. The proximal distal ends of the small bowel were placed in a side to side antiperistaltic fashion for anastomosis with stay suture of 3-0 silk placed at the seat of the proposedanastomosis. Enterotomies were placed along the antimesenteric border with neolumen created using 60 mm blue staple load. Enterotomies were closed using similar blue staple loads. Attention was brought to the right lower quadrant for the appendix as the CT demonstrated possible appendicitis. The appendix was retrocecal to the cecum. Adhesions about the appendix were lysed using vessel sealer. The appendix was found spiraling posteriorly along the retroperitoneum. The meso-appendix was mobilized using vessel sealer. The appendix was resected at its base using 60 mm white staple load. All staple lines were hemostatic. Sigmoid colon was dilated with air without active volvulus. The robot was undocked. I re-scrubbed into the case. The specimen was removed from the abdominal cavity with an Endo Catch bag through the 12 mm trocar at the left upper quadrant. Jarrod Nieves 0 Vicryl was used to close the left upper quadrant trocar site. All instruments and pneumoperitoneum were evacuated from the abdominal cavity. Local anesthetic was infiltrated to all wounds for postop analgesia. All incisions were also cleansed with diluted hydrogen peroxide. An Optifoam surgical dressing was placed over the specimen extraction site. The patient had tolerated the procedure well. The patient was extubated successfully. The patient was transferred to the postanesthesia care unit in stable condition.
[2022-12-14] MEDS ORDERED: ACETAMINOPHEN IV (For NPO) 1,000 MG in EMPTY BAG 1 BAG IVPB ONE (21:00)
[2022-12-14] MEDS ORDERED: HYDROmorphone 0.5 MG/0.5 ML SYRINGE IVP ONE (21:13)
[2022-12-14] MEDS: ATORVASTATIN 20 MG TAB PO SCH (22:25)
[2022-12-14] MEDS ORDERED: HYDROmorphone 1 MG/ML 1 ML SYRINGE ONE (22:41)
[2022-12-14] MEDS: KETOROLAC 15 MG/ML 1 ML VIAL IVP SCH (22:44)
[2022-12-14] MEDS: HYDROmorphone 1 MG/ML 1 ML SYRINGE IVP PRN (22:45)
--- NOTE | 2022-12-14 23:50 | PN ---
PROGRESS NOTE DATE OF SERVICE: 12/12/2022 LOCATION: 636, bed 1. CHIEF COMPLAINT: Right lower quadrant abdominal pain. HISTORY OF PRESENT ILLNESS: This gentleman is doing a little bit better. Pain is slightly improved. He is going to the OR Wednesday. He denies any fever or chills. PHYSICAL EXAMINATION: CHEST: Clear. CARDIAC: Normal. ABDOMEN: Slightly protuberant, and he is tender in the right lower quadrant. IMPRESSION: 1. Right lower quadrant pain. 2. Meckel's diverticulitis. 3. Chronic obstructive pulmonary disease. PLAN: Surgery on Wednesday. MMODL / IJN: [id number] /
[2022-12-15] MEDS: PIPERACILLIN-TAZOBACTAM 3.375 GM in SODIUM CHLORIDE 0.9% 100 ML IVPB SCH ×3 (04:52→21:39)
[2022-12-15] MEDS: HYDROmorphone 1 MG/ML 1 ML SYRINGE IVP PRN (04:54)
[2022-12-15] MEDS: KETOROLAC 15 MG/ML 1 ML VIAL IVP SCH ×3 (06:16→17:18)
[2022-12-15] MEDS: PANTOPRAZOLE 40 MG TABLET PO SCH (06:16)
[2022-12-15] MEDS: FUROSEMIDE 40 MG TAB PO SCH (07:44)
[2022-12-15] MEDS: PANTOPRAZOLE 40 MG/10 ML VIAL IV SCH (07:44)
[2022-12-15] MEDS: HEPARIN SODIUM,PORCINE/PF 5,000 UNIT/0.5 ML SYRINGE SQ SCH ×3 (07:44→23:34)
[2022-12-15] MEDS: SYMBICORT 160-4.5 MCG INHALER INHALATION SCH ×2 (08:40→21:33)
[2022-12-15] MEDS: IPRATROPIUM-ALBUTEROL 3 ML NEB INHALATION SCH ×4 (08:40→21:33)
[2022-12-15 09:47] LABS: Basophils # (A) 0.02 X 10*3/uL (0.00-0.10); Basophils % (A) 0.2 %; Eosinophils # (A) 0 X 10*3/uL (0.04-0.35); Eosinophils % (A) 0 %; HCT 27.5 % (39.6-50.0); HGB 7.7 g/dL (13.0-17.0); Lymphocytes # (A) 0.44 X 10*3/uL (0.90-5.00); Lymphocytes % (A) 4.2 %; MCH 21.9 pg (27.0-32.0); MCV 78.1 fL (80.0-97.0); Mean Platelet Volume 9.9 fL (9.5-12.2); Monocytes # (A) 0.81 X 10*3/uL (0.20-1.00); Monocytes % (A) 7.8 %; NRBC Per 100 WBC 0 /100 WBCS (0.0-0.0); Neutrophils # (A) 9.05 X 10*3/uL (1.80-7.70); Neutrophils % (A) 86.8 %; Platelet Count 294 X 10*3/uL (140-440); RBC 3.52 X 10*6/uL (4.40-5.60); RDW 16.9 % (11.5-14.5); WBC 10.42 X 10*3/uL (4.50-10.00)
[2022-12-15 11:50] LABS: African American GFR (CKD) 108.6 (60.0-200.0); Albumin 3.4 g/dL (3.8-4.9); Albumin/Globulin Ratio 1.48 (1.60-3.17); Anion Gap 11.9 mmol/L (10.00-18.00); BUN/Creat Ratio 17.38 Ratio (12.00-20.00); Blood Urea Nitrogen 13.9 mg/dL (9.0-27.0); Calcium 8.5 mg/dL (8.7-10.3); Carbon Dioxide 30.1 mmol/L (20.0-27.5); Globulin 2.3 g/dL (1.6-3.3); Non-African American GFR(CKD) 93.7 (60.0-200.0); Potassium 4.1 mmol/L (3.5-5.5); Total Bilirubin 0.3 mg/dL (0.30-1.20); Total Protein 5.7 g/dL (6.2-8.2)
--- NOTE | 2022-12-15 12:23 | P.PN ---
Subjective Progress Note Date: 12/15/22 67-year-old male patient, a poor historian, with advanced oxygen-dependent COPD and a steroid dependent COPD, came into the hospital because of abdominal pain and further investigation with a CAT scan of the abdomen raised concerns for a Meckel diverticulitis. The patient was started on antibiotics and the plan is to proceed with surgery tomorrow. The pulmonary clearance was requested. He is obese. He has also known to have a right lower lobe mass that was PET avid back in 2019. Nevertheless, no further follow-up was done. I believe he was seen by another zoology technical officer other than myself or my group. The patient is currently maintained on Trelegy Ellipta one inhalation a day. No significant cough or sputum production. He does have features of obstructive sleep apnea, however, this has not been diagnosed. Denies having any chest pain. No history of DVT or pulmonary embolism. Does not look to be toxic at this point in time. He is on IV antibiotics. In general, is a poor historian. His WBC count is at 10 with a hemoglobin of 9. Electrolytes are normal. UA is negative. Chest x-ray showed chronic emphysematous changes and some limited fibrotic changes in lung bases. No lung masses identified. He is currently on 3 L of oxygen nasal cannula. His functionality is limited. He does walk yet for short distances. No significant dyspnea at rest. Not using excessive muscles of breathing. On today's evaluation of 12/11/2022, the patient remains on antibiotics regarding his Meckel diverticulitis. I reviewed the CAT scan of the chest was done yesterday. There is some areas of patchy lesions which are nonspecific and needs to be followed up on outpatient basis. I do not think this should be a reason to withhold surgery on this patient. The patient was also seen by cardiology for a preoperative cardiac clearance. The patient remains on antibiotics. Blood work was reviewed. It is drop in hemoglobin down to 7.6 to be monitored. BUN is at 10 with a creatinine 0.7 and sodium levels of 141. The patient was seen by cardiology. Cardiac clearance to be given. He is considered to be high risk due to his pulmonary disease. He is going to undergo a Lexiscan cardiac stress test today. On 12/12/2022, the patient is resting comfortably in bed. The exact timing for surgery is not established by general surgery. The patient remains on IV Zosyn. On 12/13/2022, the patient's abdominal pain is subsided. Yesterday. He is being readied to undergo a surgical resection of a Meckel's diverticulitis in a.m. by general surgery. The patient remains on IV Zosyn. The patient is afebrile and hemodynamically stable. White cell cause of 7.6 with a hemoglobin of 7.9 and platelet count of 237. Electrolytes are essentially within normal limits. The patient is seen today 12/14/2022 in follow-up on the regular medical floor. He is currently sitting up in a chair at the bedside. Awake and alert in no acute distress. He is maintaining O2 saturations in the 90s on 2 L/m per nasal cannula. He does have oxygen. His FEV1 value 26% of predicted. Blood cultures reveal no growth to date. White count 5.7. Hemoglobin 8.7. Platelets 257. Sodium 141. Potassium 3.5. Bicarb 36. BUN 8. Creatinine 0.65. He is continued on Symbicort, DuoNeb inhalations, antibiotics in the form of Zosyn. Heparin for DVT prophylaxis. Remains on oral diuretics. The patient is seen today 12/15/2022 in follow-up on the regular medical floor. He is currently resting fairly comfortably in bed. Awake and alert in no acute distress. Maintaining good O2 saturations in the 90s on 3 L/m per nasal cannula. He is afebrile. Hemodynamically stable. He did undergo surgery last night for Meckel's diverticulitis and right lower lobe quadrant pain. He had a robotic-assisted daVinci Xi laparoscopic small bowel resection of the Meckel's diverticulitis as well as an appendectomy. He tolerated the procedure well. Blood cultures reveal no growth. Count 10.4. Hemoglobin 7.7. Platelets 294. Sodium 138. Potassium 4.1. Bicarb 30. BUN 14. Creatinine 0.8. He is co ntinued on DuoNeb inhalations, Symbicort. Antibiotics in the form of Zosyn. Heparin for DVT prophylaxis. Pain is currently adequately controlled. Incisions clean dry well approximated. Objective - Vital Signs Vital signs: Vital Signs Temp 98.0 F 12/15/22 07:00 Pulse 84 12/15/22 08:52 Resp 18 12/15/22 07:00 BP 124/72 12/15/22 07:00 Pulse Ox 98 12/15/22 08:43 FiO2 Intake & Output 12/14/22 12/15/22 12/15/22 18:59 06:59 18:59 Intake Total 1000 300 Output Total 220 Balance 1000 80 Weight 107.955 kg Intake: IV 1000 300 Output: Urine 200 Estimated Blood Loss 20 Other: # Voids 1 - Exam GENERAL EXAM: Alert, pleasant 67-year-old male, on 3 L nasal cannula, comfortable in no apparent distress. HEAD: Normocephalic. EYES: Normal reaction of pupils, equal size. NOSE: Clear with pink turbinates. THROAT: No erythema or exudates. NECK: No masses, no JVD. CHEST: No chest wall deformity. LUNGS: Equal air entry with no crackles, wheeze, rhonchi or dullness. CVS: S1 and S2 normal with no audible murmur, regular rhythm. ABDOMEN: Obese. Tenderness over the surgical incisions. No hepatosplenomegaly, normal bowel sounds, no guarding or rigidity. SPINE: No scoliosis or deformity SKIN: No rashes CENTRAL NERVOUS SYSTEM: No focal deficits, tone is normal in all 4 extremities. EXTREMITIES: There is no peripheral edema. No clubbing, no cyanosis. Peripheral pulses are intact. - Labs CBC & Chem 7: 12/15/22 05:52 12/15/22 05:52 Labs: Abnormal Lab Results - Last 24 Hours (Table) 12/15/22 12/15/22 Range/Units 05:52 05:52 WBC 10.42 H (4.50-10.00) X 10*3/uL RBC 3.52 L (4.40-5.60) X 10*6/uL Hgb 7.7 L (13.0-17.0) g/dL Hct 27.5 L (39.6-50.0) % MCV 78.1 L (80.0-97.0) fL MCH 21.9 L (27.0-32.0) pg MCHC 28.0 L (32.0-37.0) g/dL RDW 16.9 H (11.5-14.5) % Immature Gran # 0.10 H (0.00-0.04) X 10*3/uL Neutrophils # 9.05 H (1.80-7.70) X 10*3/uL Lymphocytes # 0.44 L (0.90-5.00) X 10*3/uL Eosinophils # 0 L (0.04-0.35) X 10*3/uL Carbon Dioxide 30.1 H (20.0-27.5) mmol/L Calcium 8.5 L (8.7-10.3) mg/dL Total Protein 5.7 L (6.2-8.2) g/dL Albumin 3.4 L (3.8-4.9) g/dL Albumin/Globulin Ratio 1.48 L (1.60-3.17) g/dL Microbiology - Last 24 Hours (Table) 12/10/22 06:16 Blood Culture - Preliminary Blood 12/10/22 05:55 Blood Culture - Preliminary Blood Assessment and Plan Assessment: Meckel's diverticulitis with secondary abdominal pain. On 12/14/2022 the patient had undergone robotic-assisted small bowel resection and appendectomy. Tolerated the procedure well. Advanced oxygen-dependent COPD maintain O2 at 3 L nasal cannula, no signs of any acute COPD exacerbation, no worsening shortness of breath and pulmonary status is stable Chronic dyspnea secondary to above Previous history of a right lower lobe pulmonary nodule, PET/CT avid and the patient needs to have further investigation or evaluation by another CAT scan Features of obstructive sleep apnea with obesity and a body mass index of 33 History of chronic neck and back pain History of diverticular disease History of colonic polyps Hiatal hernia. Chronic debility and impaired performance of functional status Plan: The patient was seen and evaluated Labs and medications reviewed Status post small bowel resection and appendectomy Tolerating a clear liquid diet Educated regarding using incentive spirometer Continue bronchodilators We'll continue to follow I have personally seen and examined the patient, performed the documentation and the assessment and plan as written. Number of minutes spent on the visit: 10.
[2022-12-15 16:21] LABS: Glucose,Whole Blood 135 mg/dL (70-110)
--- NOTE | 2022-12-15 16:50 | P.PN ---
Subjective Progress Note Date: 12/15/22 CHIEF COMPLAINT: Abdominal pain HISTORY OF PRESENT ILLNESS: Patient is postop day #1 status post robotic- assisted daVinci laparoscopic small bowel resection of Meckel's diverticulitis and laparoscopic appendectomy. Patient reports his pain is controlled. He denies any nausea or vomiting. Most of his pain is located in the left upper quadrant. Afebrile. WBC is 10.4 2 hgb 7.7 platelets 294 sodium 13 potassium 4.1 creatinine 0.8 PHYSICAL EXAM: VITAL SIGNS: Reviewed GENERAL: Well-developed in no acute distress. HEENT: No sclera icterus. Extraocular movements grossly intact. Moist buccal mucosa. Head is atraumatic, normocephalic. Hears conversational speech. No nasal drainage. NECK: Supple without lymphadenopathy. CHEST: Non-labored respirations and equal bilateral excursions. CARDIOVASCULAR: Palpable 2+ radial pulses. ABDOMEN: Soft. Nondistended. Nontender. MUSCULOSKELETAL: No clubbing or cyanosis. NEUROLOGIC: No focal or lateralizing signs. Cranial nerves II through XII gr ossly intact. PSYCH: Appropriate affect. Alert and oriented to person, place and time. SKIN: Well perfused. Good skin turgor. ASSESSMENT: 1. Meckel's diverticulitis 2. Right lower quadrant abdominal pain 3. Severe chronic obstructive pulmonary disease, oxygen dependent 4. Gastroesophageal reflux disease 5. Obesity due to excess calories, BMI 33.2 6. Steroid-dependent, prednisone 7. Depressive disorder 8. Chronic bronchitis 9. Appendicitis, retrocecal 10. Cirrhosis of the liver PLAN: -Continue clear liquid diet -Continue pain management -Continue antibiotics -Encourage patient to ambulate -Add Tylenol scheduled for pain control -Encourage patient to use incentive spirometer -DVT prophylaxis subcu heparin Physician Shop Assistant note has been reviewed by physician. Signing provider agrees with the documented findings, assessment, and plan of care. Objective - Vital Signs Vital signs: Vital Signs Temp 98.0 F 12/15/22 07:00 Pulse 84 12/15/22 08:52 Resp 18 12/15/22 07:00 BP 124/72 12/15/22 07:00 Pulse Ox 98 12/15/22 08:43 FiO2 Intake & Output 12/14/22 12/15/22 12/15/22 18:59 06:59 18:59 Intake Total 1000 300 Output Total 220 Balance 1000 80 Weight 107.955 kg Intake: IV 1000 300 Output: Urine 200 Estimated Blood Loss 20 Other: # Voids 1 - Labs CBC & Chem 7: 12/15/22 05:52 12/15/22 05:52 Labs: Abnormal Lab Results - Last 24 Hours (Table) 12/15/22 12/15/22 Range/Units 05:52 05:52 WBC 10.42 H (4.50-10.00) X 10*3/uL RBC 3.52 L (4.40-5.60) X 10*6/uL Hgb 7.7 L (13.0-17.0) g/dL Hct 27.5 L (39.6-50.0) % MCV 78.1 L (80.0-97.0) fL MCH 21.9 L (27.0-32.0) pg MCHC 28.0 L (32.0-37.0) g/dL RDW 16.9 H (11.5-14.5) % Immature Gran # 0.10 H (0.00-0.04) X 10*3/uL Neutrophils # 9.05 H (1.80-7.70) X 10*3/uL Lymphocytes # 0.44 L (0.90-5.00) X 10*3/uL Eosinophils # 0 L (0.04-0.35) X 10*3/uL Carbon Dioxide 30.1 H (20.0-27.5) mmol/L Calcium 8.5 L (8.7-10.3) mg/dL Total Protein 5.7 L (6.2-8.2) g/dL Albumin 3.4 L (3.8-4.9) g/dL Albumin/Globulin Ratio 1.48 L (1.60-3.17) g/dL Microbiology - Last 24 Hours (Table) 12/10/22 06:16 Blood Culture - Preliminary Blood 12/10/22 05:55 Blood Culture - Preliminary Blood
[2022-12-15] MEDS: ACETAMINOPHEN TAB 500 MG TAB PO SCH ×2 (17:18→23:34)
[2022-12-15] MEDS: ATORVASTATIN 20 MG TAB PO SCH (21:39)
--- NOTE | 2022-12-15 23:06 | PN ---
PROGRESS NOTE DATE OF SERVICE: 12/15/2022 CHIEF COMPLAINT: Abdominal pain and Meckel's diverticulitis. HISTORY OF PRESENT ILLNESS: This gentleman is doing well. He has had no problems. He is having no chest pain, shortness of breath, fever, chills, etc. PHYSICAL EXAMINATION: CHEST: Clear. CARDIAC: Normal. ABDOMEN: Soft, nontender. EXTREMITIES: Normal. IMPRESSION: Meckel's diverticulitis. PLAN: Progress activity and expected discharge in the next day or 2. MMODL / IJN: [id number] /
[2022-12-16] MEDS: PIPERACILLIN-TAZOBACTAM 3.375 GM in SODIUM CHLORIDE 0.9% 100 ML IVPB SCH ×3 (03:42→20:19)
[2022-12-16] MEDS: ACETAMINOPHEN TAB 500 MG TAB PO SCH ×4 (06:15→23:46)
[2022-12-16] MEDS: PANTOPRAZOLE 40 MG TABLET PO SCH (06:15)
[2022-12-16] MEDS: PANTOPRAZOLE 40 MG/10 ML VIAL IV SCH (08:26)
[2022-12-16] MEDS: HEPARIN SODIUM,PORCINE/PF 5,000 UNIT/0.5 ML SYRINGE SQ SCH ×3 (08:27→23:45)
[2022-12-16] MEDS: FUROSEMIDE 40 MG TAB PO SCH (08:27)
[2022-12-16] MEDS: IPRATROPIUM-ALBUTEROL 3 ML NEB INHALATION SCH ×4 (08:56→21:12)
[2022-12-16] MEDS: SYMBICORT 160-4.5 MCG INHALER INHALATION SCH ×2 (08:56→21:12)
[2022-12-16 09:08] LABS: African American GFR (CKD) 122.3 (60.0-200.0); Anion Gap 9.7 mmol/L (10.00-18.00); BUN/Creat Ratio 13.67 Ratio (12.00-20.00); Blood Urea Nitrogen 8.2 mg/dL (9.0-27.0); Calcium 8.5 mg/dL (8.7-10.3); Carbon Dioxide 32.3 mmol/L (20.0-27.5); Non-African American GFR(CKD) 105.5 (60.0-200.0); Potassium 3.6 mmol/L (3.5-5.5)
[2022-12-16 09:27] LABS: Basophils # (A) 0.03 X 10*3/uL (0.00-0.10); Basophils % (A) 0.4 %; Eosinophils # (A) 0.15 X 10*3/uL (0.04-0.35); Eosinophils % (A) 1.9 %; HCT 27.9 % (39.6-50.0); HGB 7.8 g/dL (13.0-17.0); Immature Grans, Automated 0.9 %; Lymphocytes # (A) 0.58 X 10*3/uL (0.90-5.00); Lymphocytes % (A) 7.4 %; MCV 78.6 fL (80.0-97.0); Mean Platelet Volume 9.8 fL (9.5-12.2); Monocytes # (A) 0.68 X 10*3/uL (0.20-1.00); Monocytes % (A) 8.6 %; NRBC Per 100 WBC 0 /100 WBCS (0.0-0.0); Neutrophils # (A) 6.37 X 10*3/uL (1.80-7.70); Neutrophils % (A) 80.8 %; Platelet Count 264 X 10*3/uL (140-440); RBC 3.55 X 10*6/uL (4.40-5.60); RDW 17.2 % (11.5-14.5); WBC 7.88 X 10*3/uL (4.50-10.00)
--- NOTE | 2022-12-16 12:03 | P.PN ---
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 The patient was started on antibiotics and the plan is to proceed with surgery tomorrow. The pulmonary clearance was requested. He is obese. He has also known to have a right lower lobe mass that was PET avid back in 2019. Nevertheless, no further follow-up was done. I believe he was seen by another broom worker other than myself or my group. The patient is currently maintained on Trelegy Ellipta one inhalation a day. No significant cough or sputum production. He does have features of obstructive sleep apnea, however, this has not been diagnosed. Denies having any chest pain. No history of DVT or pulmonary embolism. Does not look to be toxic at this point in time. He is on IV antibiotics. In general, is a poor historian. His WBC count is at 10 with a hemoglobin of 9. Electrolytes are normal. UA is negative. Chest x-ray showed chronic emphysematous changes and some limited fibrotic changes in lung bases. No lung masses identified. He is currently on 3 L of oxygen nasal cannula. His functionality is limited. He does walk yet for short distances. No significant dyspnea at rest. Not using excessive muscles of breathing. On today's evaluation of 12/11/2022, the patient remains on antibiotics regarding his Meckel diverticulitis. I reviewed the CAT scan of the chest was done yesterday. There is some areas of patchy lesions which are nonspecific and needs to be followed up on outpatient basis. I do not think this should be a reason to withhold surgery on this patient. The patient was also seen by cardiology for a preoperative cardiac clearance. The patient remains on antibiotics. Blood work was reviewed. It is drop in hemoglobin down to 7.6 to be monitored. BUN is at 10 with a creatinine 0.7 and sodium levels of 141. The patient was seen by cardiology. Cardiac clearance to be given. He is considered to be high risk due to his pulmonary disease. He is going to undergo a Lexiscan cardiac stress test today. On 12/12/2022, the patient is resting comfortably in bed. The exact timing for surgery is not established by general surgery. The patient remains on IV Zosyn. On 12/13/2022, the patient's abdominal pain is subsided. Yesterday. He is being readied to undergo a surgical resection of a Meckel's diverticulitis in a.m. by general surgery. The patient remains on IV Zosyn. The patient is afebrile and hemodynamically stable. White cell cause of 7.6 with a hemoglobin of 7.9 and platelet count of 237. Electrolytes are essentially within normal limits. The patient is seen today 12/14/2022 in follow-up on the regular medical floor. He is currently sitting up in a chair at the bedside. Awake and alert in no acute distress. He is maintaining O2 saturations in the 90s on 2 L/m per nasal cannula. He does have oxygen. His FEV1 value 26% of predicted. Blood cultures reveal no growth to date. White count 5.7. Hemoglobin 8.7. Platelets 257. Sodium 141. Potassium 3.5. Bicarb 36. BUN 8. Creatinine 0.65. He is continued on Symbicort, DuoNeb inhalations, antibiotics in the form of Zosyn. Heparin for DVT prophylaxis. Remains on oral diuretics. The patient is seen today 12/15/2022 in follow-up on the regular medical floor. He is currently resting fairly comfortably in bed. Awake and alert in no acute distress. Maintaining good O2 saturations in the 90s on 3 L/m per nasal cannula. He is afebrile. Hemodynamically stable. He did undergo surgery last night for Meckel's diverticulitis and right lower lobe quadrant pain. He had a robotic-assisted daVinci Xi laparoscopic small bowel resection of the Meckel's diverticulitis as well as an appendectomy. He tolerated the procedure well. Blood cultures reveal no growth. Count 10.4. Hemoglobin 7.7. Platelets 294. Sodium 138. Potassium 4.1. Bicarb 30. BUN 14. Creatinine 0.8. He is co ntinued on DuoNeb inhalations, Symbicort. Antibiotics in the form of Zosyn. Heparin for DVT prophylaxis. Pain is currently adequately controlled. Incisions clean dry well approximated. The patient is seen today 12/16/2022 in follow-up on the regular medical floor. Operative day #2. He is awake and alert in no acute distress. Resting fairly comfortably in bed. Denies any worsening shortness of breath, cough or congestion. Maintaining good O2 saturations in the 90s on 3 L/m per nasal noni hipolito. Afebrile. Hemodynamically stable. Pathology pending on colon biopsy. He is advanced to a low fiber diet. White count 7.8. Hemoglobin 7.8. Pulse 64. Sodium 143. Potassium 3.6. Bicarb 32. BUN 8. Creatinine 0.6. He remains on Zosyn. 18 on Symbicort and DuoNeb inhalations. Oral diuretics. Heparin for DVT prophylaxis. Objective - Vital Signs Vital signs: Vital Signs Temp 97.4 F L 12/16/22 07:06 Pulse 72 12/16/22 11:48 Resp 16 12/16/22 07:06 BP 117/76 12/16/22 07:06 Pulse Ox 97 12/16/22 08:56 FiO2 Intake & Output 12/15/22 12/16/22 12/16/22 18:59 06:59 18:59 Output Total 1400 500 Balance -1400 -500 Output: Urine 1400 500 Other: # Voids 5 - Exam GENERAL EXAM: Alert, pleasant 67-year-old male, resting comfortably in bed, on 3 L nasal cannula, comfortable in no apparent distress. HEAD: Normocephalic. EYES: Normal reaction of pupils, equal size. NOSE: Clear with pink turbinates. THROAT: No erythema or exudates. NECK: No masses, no JVD. CHEST: No chest wall deformity. LUNGS: Equal air entry with no crackles, wheeze, rhonchi or dullness. CVS: S1 and S2 normal with no audible murmur, regular rhythm. ABDOMEN: Obese. Tenderness over the surgical incisions. No hepatosplenomegaly, normal bowel sounds, no guarding or rigidity. SPINE: No scoliosis or deformity SKIN: No rashes CENTRAL NERVOUS SYSTEM: No focal deficits, tone is normal in all 4 extremities. EXTREMITIES: There is no peripheral edema. No clubbing, no cyanosis. Peripheral pulses are intact. - Labs CBC & Chem 7: 12/16/22 04:16 12/16/22 04:16 Labs: Abnormal Lab Results - Last 24 Hours (Table) 12/15/22 12/16/22 12/16/22 Range/Units 16:20 04:16 04:16 RBC 3.55 L (4.40-5.60) X 10*6/uL Hgb 7.8 L (13.0-17.0) g/dL Hct 27.9 L (39.6-50.0) % MCV 78.6 L (80.0-97.0) fL MCH 22.0 L (27.0-32.0) pg MCHC 28.0 L (32.0-37.0) g/dL RDW 17.2 H (11.5-14.5) % Immature Gran # 0.07 H (0.00-0.04) X 10*3/uL Lymphocytes # 0.58 L (0.90-5.00) X 10*3/uL Carbon Dioxide 32.3 H (20.0-27.5) mmol/L Anion Gap 9.70 L (10.00-18.00) mmol/L BUN 8.2 L (9.0-27.0) mg/dL POC Glucose (mg/dL) 135 H (70-110) mg/dL Calcium 8.5 L (8.7-10.3) mg/dL Microbiology - Last 24 Hours (Table) 12/10/22 06:16 Blood Culture - Final Blood 12/10/22 05:55 Blood Culture - Final Blood Assessment and Plan Assessment: Meckel's diverticulitis with secondary abdominal pain. On 12/14/2022 the patient had undergone robotic-assisted small bowel resection and appendectomy. Tolerated the procedure well. Advanced oxygen-dependent COPD maintain O2 at 3 L nasal cannula, no signs of any acute COPD exacerbation, no worsening shortness of breath and pulmonary status is stable Chronic dyspnea secondary to above Previous history of a right lower lobe pulmonary nodule, PET/CT avid and the patient needs to have further investigation or evaluation by another CAT scan Features of obstructive sleep apnea with obesity and a body mass index of 33 History of chronic neck and back pain History of diverticular disease History of colonic polyps Hiatal hernia. Chronic debility and impaired performance of functional status Plan: The patient was seen and evaluated Labs and medications reviewed Tolerating a clear liquid diet Diet being advanced to low fiber today Encouraged the increase use of the incentive spirometer Continue bronchodilators Titrate the FiO2 as tolerated Increase his activity as tolerated We'll continue to follow I have personally seen and examined the patient, performed the documentation and the assessment and plan as written. Number of minutes spent on the visit: 10.
--- NOTE | 2022-12-16 13:49 | P.PN ---
Subjective Progress Note Date: 12/16/22 CHIEF COMPLAINT: Abdominal pain HISTORY OF PRESENT ILLNESS: Patient is postop day #2 status post robotic- assisted daVinci laparoscopic small bowel resection of Meckel's diverticulitis and laparoscopic appendectomy. Patient reports his pain is controlled. He denies any nausea or vomiting. He is having flatus. Denies any bowel movement. Pain is mostly in the left side of the abdomen. Afebrile. WBC is 7.88 Hgb 7.8 plt 264 Na143 potassium is 3.6 creatinine 0.6 PHYSICAL EXAM: VITAL SIGNS: Reviewed GENERAL: Well-developed in no acute distress. HEENT: No sclera icterus. Extraocular movements grossly intact. Moist buccal mucosa. Head is atraumatic, normocephalic. Hears conversational speech. No nasal drainage. NECK: Supple without lymphadenopathy. CHEST: Non-labored respirations and equal bilateral excursions. CARDIOVASCULAR: Palpable 2+ radial pulses. ABDOMEN: Soft. Nondistended. Incision sites clean dry and intact. Patient does have some petechiae noted on the left side of the abdomen. MUSCULOSKELETAL: No clubbing or cyanosis. NEUROLOGIC: No focal or lateralizing signs. Cranial nerves II through XII grossly intact. PSYCH: Appropriate affect. Alert and oriented to person, place and time. SKIN: Well perfused. Good skin turgor. ASSESSMENT: 1. Meckel's diverticulitis 2. Right lower quadrant abdominal pain 3. Severe chronic obstructive pulmonary disease, oxygen dependent 4. Gastroesophageal reflux disease 5. Obesity due to excess calories, BMI 33.2 6. Steroid-dependent, prednisone 7. Depressive disorder 8. Chronic bronchitis 9. Appendicitis, retrocecal 10. Cirrhosis of the liver PLAN: -Advance diet to low fiber -Patient can be discharged from a surgical standpoint -Continue pain management -Continue antibiotics -Encourage patient to ambulate -Encourage patient to use incentive spirometer -DVT prophylaxis subcu heparin Physician Director Of [employer] note has been reviewed by physician. Signing provider agrees with the documented findings, assessment, and plan of care. Objective - Vital Signs Vital signs: Vital Signs Temp 97.4 F L 12/16/22 07:06 Pulse 78 12/16/22 09:04 Resp 16 12/16/22 07:06 BP 117/76 12/16/22 07:06 Pulse Ox 97 12/16/22 08:56 FiO2 Intake & Output 12/15/22 12/16/22 12/16/22 18:59 06:59 18:59 Output Total 1400 500 Balance -1400 -500 Output: Urine 1400 500 Other: # Voids 5 - Labs CBC & Chem 7: 12/16/22 04:16 12/16/22 04:16 Labs: Abnormal Lab Results - Last 24 Hours (Table) 12/15/22 12/15/22 12/16/22 Range/Units 05:52 16:20 04:16 RBC 3.55 L (4.40-5.60) X 10*6/uL Hgb 7.8 L (13.0-17.0) g/dL Hct 27.9 L (39.6-50.0) % MCV 78.6 L (80.0-97.0) fL MCH 22.0 L (27.0-32.0) pg MCHC 28.0 L (32.0-37.0) g/dL RDW 17.2 H (11.5-14.5) % Immature Gran # 0.07 H (0.00-0.04) X 10*3/uL Lymphocytes # 0.58 L (0.90-5.00) X 10*3/uL Carbon Dioxide 30.1 H (20.0-27.5) mmol/L Anion Gap (10.00-18.00) mmol/L BUN (9.0-27.0) mg/dL POC Glucose (mg/dL) 135 H (70-110) mg/dL Calcium 8.5 L (8.7-10.3) mg/dL Total Protein 5.7 L (6.2-8.2) g/dL Albumin 3.4 L (3.8-4.9) g/dL Albumin/Globulin Ratio 1.48 L (1.60-3.17) g/dL 12/16/22 Range/Units 04:16 RBC (4.40-5.60) X 10*6/uL Hgb (13.0-17.0) g/dL Hct (39.6-50.0) % MCV (80.0-97.0) fL MCH (27.0-32.0) pg MCHC (32.0-37.0) g/dL RDW (11.5-14.5) % Immature Gran # (0.00-0.04) X 10*3/uL Lymphocytes # (0.90-5.00) X 10*3/uL Carbon Dioxide 32.3 H (20.0-27.5) mmol/L Anion Gap 9.70 L (10.00-18.00) mmol/L BUN 8.2 L (9.0-27.0) mg/dL POC Glucose (mg/dL) (70-110) mg/dL Calcium 8.5 L (8.7-10.3) mg/dL Total Protein (6.2-8.2) g/dL Albumin (3.8-4.9) g/dL Albumin/Globulin Ratio (1.60-3.17) g/dL Microbiology - Last 24 Hours (Table) 12/10/22 06:16 Blood Culture - Final Blood 12/10/22 05:55 Blood Culture - Final Blood
[2022-12-16] MEDS: ATORVASTATIN 20 MG TAB PO SCH (20:19)
[2022-12-17] MEDS: PIPERACILLIN-TAZOBACTAM 3.375 GM in SODIUM CHLORIDE 0.9% 100 ML IVPB SCH ×3 (03:49→20:39)
[2022-12-17] MEDS: PANTOPRAZOLE 40 MG TABLET PO SCH (06:37)
[2022-12-17] MEDS: ACETAMINOPHEN TAB 500 MG TAB PO SCH ×4 (06:37→23:11)
[2022-12-17] MEDS: SYMBICORT 160-4.5 MCG INHALER INHALATION SCH ×2 (08:45→21:42)
[2022-12-17] MEDS: IPRATROPIUM-ALBUTEROL 3 ML NEB INHALATION SCH ×4 (08:45→21:42)
[2022-12-17] MEDS: PANTOPRAZOLE 40 MG/10 ML VIAL IV SCH (08:53)
[2022-12-17] MEDS: HEPARIN SODIUM,PORCINE/PF 5,000 UNIT/0.5 ML SYRINGE SQ SCH ×3 (08:53→23:11)
[2022-12-17] MEDS: FUROSEMIDE 40 MG TAB PO SCH (08:53)
[2022-12-17 11:04] LABS: HCT 30.8 % (39.6-50.0); HGB 8.5 g/dL (13.0-17.0); MCH 21.9 pg (27.0-32.0); MCHC 27.6 g/dL (32.0-37.0); MCV 79.4 fL (80.0-97.0); Mean Platelet Volume 10.4 fL (9.5-12.2); NRBC Per 100 WBC 0 /100 WBCS (0.0-0.0); Platelet Count 307 X 10*3/uL (140-440); RBC 3.88 X 10*6/uL (4.40-5.60); RDW 17.2 % (11.5-14.5); WBC 9.14 X 10*3/uL (4.50-10.00)
--- NOTE | 2022-12-17 12:12 | P.PN ---
Subjective Progress Note Date: 12/17/22 67-year-old male patient, a poor historian, with advanced oxygen-dependent COPD and a steroid dependent COPD, came into the hospital because of abdominal pain and further investigation with a CAT scan of the abdomen raised concerns for a Meckel diverticulitis. The patient was started on antibiotics and the plan is to proceed with surgery tomorrow. The pulmonary clearance was requested. He is obese. He has also known to have a right lower lobe mass that was PET avid back in 2019. Nevertheless, no further follow-up was done. I believe he was seen by another driver guide other than myself or my group. The patient is currently maintained on Trelegy Ellipta one inhalation a day. No significant cough or sputum production. He does have features of obstructive sleep apnea, however, this has not been diagnosed. Denies having any chest pain. No history of DVT or pulmonary embolism. Does not look to be toxic at this point in time. He is on IV antibiotics. In general, is a poor historian. His WBC count is at 10 with a hemoglobin of 9. Electrolytes are normal. UA is negative. Chest x-ray showed chronic emphysematous changes and some limited fibrotic changes in lung bases. No lung masses identified. He is currently on 3 L of oxygen nasal cannula. His functionality is limited. He does walk yet for short distances. No significant dyspnea at rest. Not using excessive muscles of breathing. On today's evaluation of 12/11/2022, the patient remains on antibiotics regarding his Meckel diverticulitis. I reviewed the CAT scan of the chest was done yesterday. There is some areas of patchy lesions which are nonspecific and needs to be followed up on outpatient basis. I do not think this should be a reason to withhold surgery on this patient. The patient was also seen by cardiology for a preoperative cardiac clearance. The patient remains on antibiotics. Blood work was reviewed. It is drop in hemoglobin down to 7.6 to be monitored. BUN is at 10 with a creatinine 0.7 and sodium levels of 141. The patient was seen by cardiology. Cardiac clearance to be given. He is considered to be high risk due to his pulmonary disease. He is going to undergo a Lexiscan cardiac stress test today. On 12/12/2022, the patient is resting comfortably in bed. The exact timing for surgery is not established by general surgery. The patient remains on IV Zosyn. On 12/13/2022, the patient's abdominal pain is subsided. Yesterday. He is being readied to undergo a surgical resection of a Meckel's diverticulitis in a.m. by general surgery. The patient remains on IV Zosyn. The patient is afebrile and hemodynamically stable. White cell cause of 7.6 with a hemoglobin of 7.9 and platelet count of 237. Electrolytes are essentially within normal limits. The patient is seen today 12/14/2022 in follow-up on the regular medical floor. He is currently sitting up in a chair at the bedside. Awake and alert in no acute distress. He is maintaining O2 saturations in the 90s on 2 L/m per nasal cannula. He does have oxygen. His FEV1 value 26% of predicted. Blood cultures reveal no growth to date. White count 5.7. Hemoglobin 8.7. Platelets 257. Sodium 141. Potassium 3.5. Bicarb 36. BUN 8. Creatinine 0.65. He is continued on Symbicort, DuoNeb inhalations, antibiotics in the form of Zosyn. Heparin for DVT prophylaxis. Remains on oral diuretics. The patient is seen today 12/15/2022 in follow-up on the regular medical floor. He is currently resting fairly comfortably in bed. Awake and alert in no acute distress. Maintaining good O2 saturations in the 90s on 3 L/m per nasal cannula. He is afebrile. Hemodynamically stable. He did undergo surgery last night for Meckel's diverticulitis and right lower lobe quadrant pain. He had a robotic-assisted daVinci Xi laparoscopic small bowel resection of the Meckel's diverticulitis as well as an appendectomy. He tolerated the procedure well. Blood cultures reveal no growth. Count 10.4. Hemoglobin 7.7. Platelets 294. Sodium 138. Potassium 4.1. Bicarb 30. BUN 14. Creatinine 0.8. He is co ntinued on DuoNeb inhalations, Symbicort. Antibiotics in the form of Zosyn. Heparin for DVT prophylaxis. Pain is currently adequately controlled. Incisions clean dry well approximated. The patient is seen today 12/16/2022 in follow-up on the regular medical floor. Operative day #2. He is awake and alert in no acute distress. Resting fairly comfortably in bed. Denies any worsening shortness of breath, cough or congestion. Maintaining good O2 saturations in the 90s on 3 L/m per nasal noni hipolito. Afebrile. Hemodynamically stable. Pathology pending on colon biopsy. He is advanced to a low fiber diet. White count 7.8. Hemoglobin 7.8. Pulse 64. Sodium 143. Potassium 3.6. Bicarb 32. BUN 8. Creatinine 0.6. He remains on Zosyn. 18 on Symbicort and DuoNeb inhalations. Oral diuretics. Heparin for DVT prophylaxis. The patient is seen today 12/17/2022 in follow-up on the regular medical floor. Post operative day #3. Pathology on small bowel and appendix specimens were negative for malignancy. He is currently resting comfortably in bed. Awake and alert in no acute distress. Maintaining good O2 saturations in the 90s on 3 L/m per nasal cannula. He is complaining of some bloating in the abdomen. He has not had a bowel movement since surgery. He has been advanced to a low fiber diet. He remains on antibiotics in the form of Zosyn. Continued on Symbicort and DuoNeb inhalations. Heparin for DVT prophylaxis. Remains on oral diuretics. White count 9.1. Hemoglobin 8.5. Platelets 307. Objective - Vital Signs Vital signs: Vital Signs Temp 97.9 F 12/17/22 07:00 Pulse 77 12/17/22 11:33 Resp 18 12/17/22 11:33 BP 122/74 12/17/22 07:00 Pulse Ox 97 12/17/22 08:45 FiO2 Intake & Output 12/16/22 12/17/22 12/17/22 18:59 06:59 18:59 Output Total 1999 Balance -1999 Output: Urine 1999 Other: Voiding Method Urinal # Voids 2 # Bowel Movements 1 - Exam GENERAL EXAM: Alert, pleasant 67-year-old male, on 3 L nasal cannula, comfortable in no apparent distress. HEAD: Normocephalic. EYES: Normal reaction of pupils, equal size. NOSE: Clear with pink turbinates. THROAT: No erythema or exudates. NECK: No masses, no JVD. CHEST: No chest wall deformity. LUNGS: Equal air entry with no crackles, wheeze, rhonchi or dullness. CVS: S1 and S2 normal with no audible murmur, regular rhythm. ABDOMEN: Obese. Tenderness over the surgical incisions. No hepatosplenomegaly, normal bowel sounds, no guarding or rigidity. SPINE: No scoliosis or deformity SKIN: No rashes CENTRAL NERVOUS SYSTEM: No focal deficits, tone is normal in all 4 extremities. EXTREMITIES: There is no peripheral edema. No clubbing, no cyanosis. Peripheral pulses are intact. - Labs CBC & Chem 7: 12/17/22 06:30 12/16/22 04:16 Labs: Abnormal Lab Results - Last 24 Hours (Table) 12/17/22 Range/Units 06:30 RBC 3.88 L (4.40-5.60) X 10*6/uL Hgb 8.5 L (13.0-17.0) g/dL Hct 30.8 L (39.6-50.0) % MCV 79.4 L (80.0-97.0) fL MCH 21.9 L (27.0-32.0) pg MCHC 27.6 L (32.0-37.0) g/dL RDW 17.2 H (11.5-14.5) % Microbiology - Last 24 Hours (Table) 12/10/22 06:16 Blood Culture - Final Blood 12/10/22 05:55 Blood Culture - Final Blood Assessment and Plan Assessment: Meckel's diverticulitis with secondary abdominal pain. On 12/14/2022 the patient had undergone robotic-assisted small bowel resection and appendectomy. Pathology negative for malignancy. Advanced oxygen-dependent COPD maintain O2 at 3 L nasal cannula, FEV1 value 26% of predicted, no signs of any acute COPD exacerbation Chronic dyspnea secondary to above Previous history of a right lower lobe pulmonary nodule, PET/CT avid and being followed in the outpatient setting Features of obstructive sleep apnea with obesity and a body mass index of 33 History of chronic neck and back pain History of diverticular disease History of colonic polyps Hiatal hernia. Chronic debility and impaired performance of functional status Plan: The patient was seen and evaluated Labs and medications reviewed Continued on Zosyn Encouraged the increase use of the incentive spirometer Continue Symbicort, DuoNeb inhalations Continue heparin for DVT prophylaxis Increase his activity as tolerated We'll continue to follow I have personally seen and examined the patient, performed the documentation and the assessment and plan as written. Number of minutes spent on the visit: 10.
[2022-12-17 13:29] VITALS: BMI 33.2
--- NOTE | 2022-12-17 14:00 | P.PN ---
Subjective Progress Note Date: 12/17/22 CHIEF COMPLAINT: Abdominal pain HISTORY OF PRESENT ILLNESS: Patient is postop day #3 status post robotic- assisted daVinci laparoscopic small bowel resection of Meckel's diverticulitis and laparoscopic appendectomy. Patient complaining left lower abdominal pain. Patient reports difficulty eating the food due to no teeth. He does report some more abdominal bloating. He is having flatus and belching. No bowel movement. Afebrile. WBC is 9.14 Hgb 8.5 platelets 307 PHYSICAL EXAM: VITAL SIGNS: Reviewed GENERAL: Well-developed in no acute distress. HEENT: No sclera icterus. Extraocular movements grossly intact. Moist buccal mucosa. Head is atraumatic, normocephalic. Hears conversational speech. No nasal drainage. NECK: Supple without lymphadenopathy. CHEST: Non-labored respirations and equal bilateral excursions. CARDIOVASCULAR: Palpable 2+ radial pulses. ABDOMEN: Soft. Distended. Discomfort with palpation over left side of the abdomen. Mild petechia or bruising noted on the left. No change. Incision sites clean dry and intact. MUSCULOSKELETAL: No clubbing or cyanosis. NEUROLOGIC: No focal or lateralizing signs. Cranial nerves II through XII grossly intact. PSYCH: Appropriate affect. Alert and oriented to person, place and time. SKIN: Well perfused. Good skin turgor. ASSESSMENT: 1. Meckel's diverticulitis 2. Right lower quadrant abdominal pain 3. Severe chronic obstructive pulmonary disease, oxygen dependent 4. Gastroesophageal reflux disease 5. Obesity due to excess calories, BMI 33.2 6. Steroid-dependent, prednisone 7. Depressive disorder 8. Chronic bronchitis 9. Appendicitis, retrocecal 10. Cirrhosis of the liver PLAN: -Check abdominal x-ray due to increased abdominal bloating and distention -Change diet to a ground consistent diet, low fiber -Continue pain management -Continue antibiotics -Patient will not require antibiotics at discharge -Encourage patient to ambulate -Encourage patient to use incentive spirometer -DVT prophylaxis subcu heparin Physician Facing Grinder note has been reviewed by physician. Signing provider agrees with the documented findings, assessment, and plan of care. Please see additional documentation below. Earlier, patient had increased abdominal distention. Patient reports after x- ray, he is passing moderate flatus. He is tolerating diet. He was temporarily nothing by mouth. There is him clear liquid diet. Above findings consistent with expected edema at anastomosis which is now improving. Objective - Vital Signs Vital signs: Vital Signs Temp 97.9 F 12/17/22 07:00 Pulse 77 12/17/22 11:33 Resp 18 12/17/22 11:33 BP 122/74 12/17/22 07:00 Pulse Ox 97 12/17/22 08:45 FiO2 Intake & Output 12/16/22 12/17/22 12/17/22 18:59 06:59 18:59 Output Total 1999 900 Balance -1999 Output: Urine 1999 900 Other: Voiding Method Urinal # Voids 2 # Bowel Movements 1 - Labs CBC & Chem 7: 12/17/22 06:30 12/16/22 04:16 Labs: Abnormal Lab Results - Last 24 Hours (Table) 12/17/22 Range/Units 06:30 RBC 3.88 L (4.40-5.60) X 10*6/uL Hgb 8.5 L (13.0-17.0) g/dL Hct 30.8 L (39.6-50.0) % MCV 79.4 L (80.0-97.0) fL MCH 21.9 L (27.0-32.0) pg MCHC 27.6 L (32.0-37.0) g/dL RDW 17.2 H (11.5-14.5) % Microbiology - Last 24 Hours (Table) 12/10/22 06:16 Blood Culture - Final Blood 12/10/22 05:55 Blood Culture - Final Blood
--- NOTE | 2022-12-17 14:20 | XR ---
EXAMINATION TYPE: XR abdomen 2V DATE OF EXAM: 12/17/2022 COMPARISON: None INDICATION: Abdominal distention TECHNIQUE: Abdomen is examined in the upright and supine views. FINDINGS: Multiple air-fluid levels within dilated small bowel loops are evident. Some colonic bowel gas is pre sent. No free air is identified. No mass effect is evident. Findings are suggestive for small bowel o bstruction, likely within the proximal ileum region. Additional workup is recommended. Psoas margins are normal. No organomegaly is present. No suspicious calcifications. IMPRESSION: 1. Multiple differential air-fluid levels within dilated small bowel loops suggestive for small bowel obstruction within the mid abdomen. Additional workup recommended. Report was called to Lexi the patient's nurse by Dr Ritchie by telephone at the time of interpretation.
[2022-12-17] MEDS: ATORVASTATIN 20 MG TAB PO SCH (20:37)
[2022-12-17] MEDS: HYDROmorphone 1 MG/ML 1 ML SYRINGE IVP PRN (20:43)
[2022-12-17] MEDS ORDERED: METHYL SALICYLATE-MENTHOL OINT (3 OZ TUBE) TOPICAL PRN (21:42)
--- NOTE | 2022-12-18 04:13 | PN ---
PROGRESS NOTE CHIEF COMPLAINT: Meckel's diverticulitis. HISTORY OF PRESENT ILLNESS: This gentleman is doing well with no new problems and he awaits discharge. PHYSICAL EXAMINATION: CHEST: Clear. CARDIAC: Normal. ABDOMEN: Soft, nontender. IMPRESSION: 1. Status post laparoscopic removal of Meckel's diverticulitis. 2. COPD. PLAN: Home whenever he is cleared by surgery. MMODL / IJN: [id number] /
[2022-12-18] MEDS: PIPERACILLIN-TAZOBACTAM 3.375 GM in SODIUM CHLORIDE 0.9% 100 ML IVPB SCH ×2 (05:09→12:47)
[2022-12-18] MEDS: ACETAMINOPHEN TAB 500 MG TAB PO SCH ×2 (05:09→12:47)
[2022-12-18] MEDS: PANTOPRAZOLE 40 MG TABLET PO SCH (06:45)
--- NOTE | 2022-12-18 07:35 | PN ---
PROGRESS NOTE DATE OF SERVICE: 12/16/2022 CHIEF COMPLAINT: Meckel's diverticulum. HISTORY OF PRESENT ILLNESS: This is a gentleman who is doing well postop. He has had no problems. He has had no fever, chills, abdominal pain, vomiting, etc. PHYSICAL EXAMINATION: CHEST: Clear. CARDIAC: Normal. IMPRESSION: Status post removal of Meckel's diverticulum. PLAN: Home when cleared by Surgery. MMODL / IJN: [id number] /
[2022-12-18] MEDS: FUROSEMIDE 40 MG TAB PO SCH (08:32)
[2022-12-18] MEDS: PANTOPRAZOLE 40 MG/10 ML VIAL IV SCH (08:32)
[2022-12-18] MEDS: HEPARIN SODIUM,PORCINE/PF 5,000 UNIT/0.5 ML SYRINGE SQ SCH ×2 (08:32→16:43)
[2022-12-18] MEDS: SYMBICORT 160-4.5 MCG INHALER INHALATION SCH (09:49)
[2022-12-18] MEDS: IPRATROPIUM-ALBUTEROL 3 ML NEB INHALATION SCH ×2 (09:49→12:53)
--- NOTE | 2022-12-18 12:45 | P.PN ---
Subjective Progress Note Date: 12/18/22 67-year-old male patient, a poor historian, with advanced oxygen-dependent COPD and a steroid dependent COPD, came into the hospital because of abdominal pain and further investigation with a CAT scan of the abdomen raised concerns for a Meckel diverticulitis. The patient was started on antibiotics and the plan is to proceed with surgery tomorrow. The pulmonary clearance was requested. He is obese. He has also known to have a right lower lobe mass that was PET avid back in 2019. Nevertheless, no further follow-up was done. I believe he was seen by another associate vice president other than myself or my group. The patient is currently maintained on Trelegy Ellipta one inhalation a day. No significant cough or sputum production. He does have features of obstructive sleep apnea, however, this has not been diagnosed. Denies having any chest pain. No history of DVT or pulmonary embolism. Does not look to be toxic at this point in time. He is on IV antibiotics. In general, is a poor historian. His WBC count is at 10 with a hemoglobin of 9. Electrolytes are normal. UA is negative. Chest x-ray showed chronic emphysematous changes and some limited fibrotic changes in lung bases. No lung masses identified. He is currently on 3 L of oxygen nasal cannula. His functionality is limited. He does walk yet for short distances. No significant dyspnea at rest. Not using excessive muscles of breathing. On today's evaluation of 12/11/2022, the patient remains on antibiotics regarding his Meckel diverticulitis. I reviewed the CAT scan of the chest was done yesterday. There is some areas of patchy lesions which are nonspecific and needs to be followed up on outpatient basis. I do not think this should be a reason to withhold surgery on this patient. The patient was also seen by cardiology for a preoperative cardiac clearance. The patient remains on antibiotics. Blood work was reviewed. It is drop in hemoglobin down to 7.6 to be monitored. BUN is at 10 with a creatinine 0.7 and sodium levels of 141. The patient was seen by cardiology. Cardiac clearance to be given. He is considered to be high risk due to his pulmonary disease. He is going to undergo a Lexiscan cardiac stress test today. On 12/12/2022, the patient is resting comfortably in bed. The exact timing for surgery is not established by general surgery. The patient remains on IV Zosyn. On 12/13/2022, the patient's abdominal pain is subsided. Yesterday. He is being readied to undergo a surgical resection of a Meckel's diverticulitis in a.m. by general surgery. The patient remains on IV Zosyn. The patient is afebrile and hemodynamically stable. White cell cause of 7.6 with a hemoglobin of 7.9 and platelet count of 237. Electrolytes are essentially within normal limits. The patient is seen today 12/14/2022 in follow-up on the regular medical floor. He is currently sitting up in a chair at the bedside. Awake and alert in no acute distress. He is maintaining O2 saturations in the 90s on 2 L/m per nasal cannula. He does have oxygen. His FEV1 value 26% of predicted. Blood cultures reveal no growth to date. White count 5.7. Hemoglobin 8.7. Platelets 257. Sodium 141. Potassium 3.5. Bicarb 36. BUN 8. Creatinine 0.65. He is continued on Symbicort, DuoNeb inhalations, antibiotics in the form of Zosyn. Heparin for DVT prophylaxis. Remains on oral diuretics. The patient is seen today 12/15/2022 in follow-up on the regular medical floor. He is currently resting fairly comfortably in bed. Awake and alert in no acute distress. Maintaining good O2 saturations in the 90s on 3 L/m per nasal cannula. He is afebrile. Hemodynamically stable. He did undergo surgery last night for Meckel's diverticulitis and right lower lobe quadrant pain. He had a robotic-assisted daVinci Xi laparoscopic small bowel resection of the Meckel's diverticulitis as well as an appendectomy. He tolerated the procedure well. Blood cultures reveal no growth. Count 10.4. Hemoglobin 7.7. Platelets 294. Sodium 138. Potassium 4.1. Bicarb 30. BUN 14. Creatinine 0.8. He is co ntinued on DuoNeb inhalations, Symbicort. Antibiotics in the form of Zosyn. Heparin for DVT prophylaxis. Pain is currently adequately controlled. Incisions clean dry well approximated. The patient is seen today 12/16/2022 in follow-up on the regular medical floor. Operative day #2. He is awake and alert in no acute distress. Resting fairly comfortably in bed. Denies any worsening shortness of breath, cough or congestion. Maintaining good O2 saturations in the 90s on 3 L/m per nasal noni hipolito. Afebrile. Hemodynamically stable. Pathology pending on colon biopsy. He is advanced to a low fiber diet. White count 7.8. Hemoglobin 7.8. Pulse 64. Sodium 143. Potassium 3.6. Bicarb 32. BUN 8. Creatinine 0.6. He remains on Zosyn. 18 on Symbicort and DuoNeb inhalations. Oral diuretics. Heparin for DVT prophylaxis. The patient is seen today 12/17/2022 in follow-up on the regular medical floor. Post operative day #3. Pathology on small bowel and appendix specimens were negative for malignancy. He is currently resting comfortably in bed. Awake and alert in no acute distress. Maintaining good O2 saturations in the 90s on 3 L/m per nasal cannula. He is complaining of some bloating in the abdomen. He has not had a bowel movement since surgery. He has been advanced to a low fiber diet. He remains on antibiotics in the form of Zosyn. Continued on Symbicort and DuoNeb inhalations. Heparin for DVT prophylaxis. Remains on oral diuretics. White count 9.1. Hemoglobin 8.5. Platelets 307. The patient seen today 12/18/2022 in follow-up on the regular medical floor. He is currently sitting up in bed. Awake and alert in no acute distress. X-ray of the abdomen yesterday revealed multiple differential air fluid levels with dilated small bowel loops suggestive for small bowel obstruction within the mid abdomen. He did have a bowel movement yesterday. He is passing flatus. Maintaining O2 saturations in the 90s on 3 L/m per nasal cannula. His pain is well controlled. He is continued on antibiotics in the form of Zosyn. Maintained on Symbicort, DuoNeb's. Remains on oral diuretics. Objective - Vital Signs Vital signs: Vital Signs Temp 98.1 F 12/18/22 07:03 Pulse 76 12/18/22 09:57 Resp 17 12/18/22 07:03 BP 127/83 12/18/22 07:03 Pulse Ox 96 12/18/22 09:52 FiO2 Intake & Output 12/17/22 12/18/22 12/18/22 18:59 06:59 18:59 Intake Total 550 Output Total 110 Balance 550 -110 Weight 107.955 kg Intake: Oral 550 Output: Urine 110 Other: Voiding Method Urinal # Voids 1 # Bowel Movements 0 - Exam GENERAL EXAM: Alert, oriented 67-year-old male, comfortable in no apparent distress. HEAD: Normocephalic. EYES: Normal reaction of pupils, equal size. NOSE: Clear with pink turbinates. THROAT: No erythema or exudates. NECK: No masses, no JVD. CHEST: No chest wall deformity. LUNGS: Equal air entry with no crackles, wheeze, rhonchi or dullness. On 3 L nasal cannula. CVS: S1 and S2 normal with no audible murmur, regular rhythm. ABDOMEN: Obese. Tenderness over the surgical incisions. No hepatosplenomegaly, normal bowel sounds, no guarding or rigidity. SPINE: No scoliosis or deformity SKIN: No rashes CENTRAL NERVOUS SYSTEM: No focal deficits, tone is normal in all 4 extremities. EXTREMITIES: There is no peripheral edema. No clubbing, no cyanosis. Pe ripheral pulses are intact. - Labs CBC & Chem 7: 12/17/22 06:30 12/16/22 04:16 Assessment and Plan Assessment: Meckel's diverticulitis with secondary abdominal pain. On 12/14/2022 the patient had undergone robotic-assisted small bowel resection and appendectomy. Pathology negative for malignancy. Abdominal x-ray from 12/17/2022 revealed multiple differential air fluid levels within dilated small bowel loops s uggestive for small bowel obstruction within the mid abdomen. Advanced oxygen-dependent COPD maintain O2 at 3 L nasal cannula, FEV1 value 26% of predicted, no signs of any acute COPD exacerbation Chronic dyspnea secondary to above Previous history of a right lower lobe pulmonary nodule, PET/CT avid and being followed in the outpatient setting Features of obstructive sleep apnea with obesity and a body mass index of 33 History of chronic neck and back pain History of diverticular disease History of colonic polyps Hiatal hernia. Chronic debility and impaired performance of functional status Plan: The patient was seen and evaluated Abdominal x-ray, medications reviewed Surgical services following Encouraged the increase use of the incentive spirometer Continue Symbicort, DuoNeb inhalations, Zosyn Heparin for DVT prophylaxis Increase his activity as tolerated Titrate the FiO2 as tolerated We'll continue to follow I have personally seen and examined the patient, performed the documentation and the assessment and plan as written. Number of minutes spent on the visit: 10.
[2022-12-18 13:57] VITALS: BP 121/79; RESP 18; TEMP 97.5
--- NOTE | 2022-12-18 15:14 | P.PN ---
Subjective Progress Note Date: 12/18/22 CHIEF COMPLAINT: Abdominal pain HISTORY OF PRESENT ILLNESS: Patient is postop day #4 status post robotic- assisted daVinci laparoscopic small bowel resection of Meckel's diverticulitis and laparoscopic appendectomy. Patient reports his abdominal pain has improved since yesterday. He has had a bowel movement and is having flatus. Did have a little nausea and acid reflux earlier this morning. That has improved. Afebrile. Abdominal x-ray reviewed by Dr. Chapa. She did not feel that this was a bowel obstruction. Patient tolerated clear liquid diet. Patient is now having bowel movements and flatus. PHYSICAL EXAM: VITAL SIGNS: Reviewed GENERAL: Well-developed in no acute distress. HEENT: No sclera icterus. Extraocular movements grossly intact. Moist buccal mucosa. Head is atraumatic, normocephalic. Hears conversational speech. No nasal drainage. NECK: Supple without lymphadenopathy. CHEST: Non-labored respirations and equal bilateral excursions. CARDIOVASCULAR: Palpable 2+ radial pulses. ABDOMEN: Soft. Less Distended. Nontender Mild petechia or bruising noted on the left. No change. Incision sites clean dry and intact. MUSCULOSKELETAL: No clubbing or cyanosis. NEUROLOGIC: No focal or lateralizing signs. Cranial nerves II through XII grossly intact. PSYCH: Appropriate affect. Alert and oriented to person, place and time. SKIN: Well perfused. Good skin turgor. ASSESSMENT: 1. Meckel's diverticulitis 2. Right lower quadrant abdominal pain 3. Severe chronic obstructive pulmonary disease, oxygen dependent 4. Gastroesophageal reflux disease 5. Obesity due to excess calories, BMI 33.2 6. Steroid-dependent, prednisone 7. Depressive disorder 8. Chronic bronchitis 9. Appendicitis, retrocecal 10. Cirrhosis of the liver PLAN: -Advance diet to ground diet -Patient can be discharged from surgical standpoint -Patient will not require antibiotics at discharge -Encourage patient to ambulate -Encourage patient to use incentive spirometer -DVT prophylaxis subcu heparin Physician Staff Command And Control Officer note has been reviewed by physician. Signing provider agrees with the documented findings, assessment, and plan of care. Objective - Vital Signs Vital signs: Vital Signs Temp 98.1 F 12/18/22 07:03 Pulse 76 12/18/22 09:57 Resp 17 12/18/22 07:03 BP 127/83 12/18/22 07:03 Pulse Ox 96 05/19/23 09:52 FiO2 Intake & Output 12/17/22 12/18/22 12/18/22 18:59 06:59 18:59 Intake Total 550 Output Total 110 Balance 550 -110 Weight 107.955 kg Intake: Oral 550 Output: Urine 110 Other: Voiding Method Urinal # Voids 1 # Bowel Movements 0 - Labs CBC & Chem 7: 12/17/22 06:30 12/16/22 04:16
[2022-12-18] MEDS ORDERED: IPRATROPIUM-ALBUTEROL 3 ML NEB INHALATION SCH (16:00)
--- NOTE | 2022-12-18 16:02 | DS ---
DISCHARGE SUMMARY CHIEF COMPLAINT: Abdominal pain. HISTORY OF PRESENT ILLNESS AND PHYSICAL EXAMINATION: Details of this man's history and physical can be found in the initial workup. LABORATORY STUDIES: While he is in the hospital, he had laboratory studies, details of which can be found in the laboratory section of his chart. COURSE IN THE HOSPITAL: After admission, he was placed on bedrest and after workup, was determined to have a Meckel's diverticulitis. He underwent cardiac evaluation and then had surgery for removal of the appendage. Postoperatively, he did well except for slight ileus. Surgery felt that he could be released to the [facility] on the . FINAL DIAGNOSES: 1. Meckel's diverticulitis. 2. Chronic obstructive pulmonary disease. 3. Presbycusis. OPERATIONS: Removal of Meckel's diverticulum and appendix. CONSULTATIONS: General Surgery and Cardiology. He is improved. MMBRIAN / LAURA: [id number] /
[2022-12-18 16:42] VITALS: PULSE 80
== END 2022-12-18 16:45 | DRG 330 ==
LOC: EC 02:09 → 6NMEDSUR 06:00 → OBSVTOIN 12-11 09:27 → 4SSUR 12-14 20:50
PROVIDERS: ADMIT Family Medicine; ATTEND Family Medicine
PROC: 0DTJ4ZZ Resection of Appendix, Percutaneous Endoscopic Approach (ICD-10-PCS; 2022-12-14)
PROC: 8E0W4CZ Robotic Assisted Procedure of Trunk Region, Percutaneous Endoscopic Approach (ICD-10-PCS; 2022-12-14)
PROC: 3E0T3BZ Introduction of Anesthetic Agent into Peripheral Nerves and Plexi, Percutaneous Approach (ICD-10-PCS; 2022-12-14)
PROC: 0DT84ZZ Resection of Small Intestine, Percutaneous Endoscopic Approach (ICD-10-PCS; principal; 2022-12-14 16:00)
DX: Q43.0 Meckel's diverticulum (displaced) (hypertrophic) (principal); J96.11 Chronic respiratory failure with hypoxia; K59.39 Other megacolon; K56.7 Ileus, unspecified; K74.60 Unspecified cirrhosis of liver; F10.21 Alcohol dependence, in remission; J43.9 Emphysema, unspecified; J42 Unspecified chronic bronchitis; E66.01 Morbid (severe) obesity due to excess calories; F32.A Depression, unspecified; K21.9 Gastro-esophageal reflux disease without esophagitis; K37 Unspecified appendicitis; K66.0 Peritoneal adhesions (postprocedural) (postinfection); G89.29 Other chronic pain; R07.9 Chest pain, unspecified; I45.10 Unspecified right bundle-branch block; H91.10 Presbycusis, unspecified ear; D50.9 Iron deficiency anemia, unspecified; M54.50 Low back pain, unspecified; H91.90 Unspecified hearing loss, unspecified ear; R91.1 Solitary pulmonary nodule; R63.39 Other feeding difficulties; G47.33 Obstructive sleep apnea (adult) (pediatric); Z99.81 Dependence on supplemental oxygen; Z68.33 Body mass index [BMI] 33.0-33.9, adult; R53.81 Other malaise; R00.0 Tachycardia, unspecified; M54.2 Cervicalgia; Z79.52 Long term (current) use of systemic steroids; Z80.0 Family history of malignant neoplasm of digestive organs; Z80.9 Family history of malignant neoplasm, unspecified; Z87.891 Personal history of nicotine dependence; Z87.19 Personal history of other diseases of the digestive system; Z79.899 Other long term (current) drug therapy; Z79.51 Long term (current) use of inhaled steroids; Z79.1 Long term (current) use of non-steroidal anti-inflammatories (NSAID)
CPT/HCPCS: 36415; 64999; 71046; 71250; 74019; 74177; 78452; 80048; 80053; 81003; 82150; 82728; 82746; 83540; 83550; 83605; 83690; 85025; 85027; 85045; 86850; 86900; 86901; 87635; 88307; 93017; 93306; 94640; 94760; 96361; 96374; 96376; 99285

== ENCOUNTER 2022-12-21 14:53 | Inpatient (IN) | payer MEDICARE, OTHER ==
[2022-12-21] MEDS ORDERED: ONDANSETRON 4 MG/2 ML VIAL IVP STA (15:26)
--- NOTE | 2022-12-21 15:26 | ED ---
General Adult HPI - General Chief complaint: Abdominal Pain Stated complaint: Post-op vomiting Time Seen by Provider: 12/21/22 15:00 Source: patient, RN notes reviewed, old records reviewed Mode of arrival: EMS Limitations: no limitations - History of Present Illness Initial comments: This is a 67-year-old male who presents emergency Department complaining of abdominal pain and vomiting. Patient states she had a bowel resection with appendectomy. Patient states all of a sudden last night his abdomen started getting very distended he started vomiting he's been unable to stop vomiting. Patient states his abdomen distends little but he vomited and seems abdominal. Patient states he has had 2 very very small bowel movements today. Patient denies any fever chills per patient denies dysuria or hematuria. Patient denies any back pain. Patient denies any chest pain difficult breathing shortness of breath. Patient denies any fever or chills. - Related Data Home Medications Medication Instructions Recorded Confirmed Montelukast Sodium [Singulair] 10 mg PO DAILY 11/04/20 12/10/22 buPROPion HCL [buPROPion HCL SR] 150 mg PO BID 11/04/20 12/10/22 Doxazosin [Cardura] 1 mg PO HS 11/20/21 12/10/22 Furosemide [Lasix] 40 mg PO DAILY 11/20/21 12/10/22 Famotidine [Pepcid] 20 mg PO DAILY 12/10/22 12/10/22 Fluticasone/Umeclidin/Vilanter 1 puff INHALATION RT-DAILY 12/10/22 12/10/22 [Trelegy Ellipta 100-62.5-25] Meloxicam [Mobic] 7.5 mg PO BID 12/10/22 12/10/22 Pantoprazole Sodium [Protonix] 40 mg PO BID 12/10/22 12/10/22 Previous Rx's Medication Instructions Recorded Acetaminophen Tab [Tylenol] 1,000 mg PO Q6HR PRN #30 tablet 12/16/22 Atorvastatin [Lipitor] 20 mg PO HS #30 tab 12/18/22 Budesonide-Formot 160-4.5 Mcg 2 puff INHALATION RT-BID 30 Days 12/18/22 [Symbicort 160-4.5 Mcg Inhaler] #1 dispenser Ipratropium-Albuterol Nebulize 3 ml INHALATION RT-QID 30 Days 12/18/22 [Duoneb 0.5 mg-3 mg/3 ml Soln] #120 dose Allergies Allergy/AdvReac Type Severity Reaction Status Date / Time No Known Allergies Allergy Verified 07/27/22 10:07 Review of Systems ROS Statement: Those systems with pertinent positive or pertinent negative responses have been documented in the HPI. ROS Other: All systems not noted in ROS Statement are negative. Past Medical History Past Medical History: COPD, Pneumonia Additional Past Medical History / Comment(s): Home oxygen at 3-4L?[place] ATC, bron chitis, R lung lesion/pt states attempted to biopsy but failed, chronic cervical/lumbar back pain, R upper quadrant "lump", neck abscesses, hiatal hernia, gastritis, diverticular dx, benign colon polyp History of Any Multi-Drug Resistant Organisms: None Reported Past Surgical History: Orthopedic Surgery Additional Past Surgical History / Comment(s): Attempted L lung bx/failed per pt, EGD, colonoscopies/benign polypectomy, R upper shoulder I&D sebacceous cyst., L ankle fx with ORIF/hardware. Past Anesthesia/Blood Transfusion Reactions: No Reported Reaction Past Psychological History: No Psychological Hx Reported Smoking Status: Former smoker Past Alcohol Use History: Occasional Past Drug Use History: None Reported - Past Family History Mother Family Medical History: Cancer Additional Family Medical History / Comment(s): Mother had metastatic cancer, primary unknown to pt. Father Family Medical History: Cancer Additional Family Medical History / Comment(s): Colon cancer. General Exam - General Exam Comments Initial Comments: GENERAL: Patient is well-developed and well-nourished. Patient is nontoxic and well- hydrated and is in mild distress. ENT: Neck is soft and supple. No significant lymphadenopathy is noted. Oropharynx is clear. Moist mucous membranes. Neck has full range of motion without eliciting any pain. EYES: The sclera were anicteric and conjunctiva were pink and moist. Extraocular movements were intact and pupils were equal round and reactive to light. Eyelids were unremarkable. PULMONARY: Unlabored respirations. Good breath sounds bilaterally. No audible rales rhonchi or wheezing was noted. CARDIOVASCULAR: There is a regular rate and rhythm without any murmurs gallops or rubs. ABDOMEN: Patient's abdomen is distended and is diffusely tender and he has high pitched bowel sounds. SKIN: Skin is clear with no lesions or rashes and otherwise unremarkable. NEUROLOGIC: Patient is alert and oriented x3. Cranial nerves II through XII are grossly intact. Motor and sensory are also intact. Normal speech, volume and content. Symmetrical smile. MUSCULOSKELETAL: Normal extremities with adequate strength and full range of motion. No lower extremity swelling or edema. No calf tenderness. LYMPHATICS: No significant lymphadenopathy is noted PSYCHIATRIC: Normal psychiatric evaluation. Limitations: no limitations Course Vital Signs 12/21/22 14:58 Temperature 99.5 F Pulse Rate 94 Respiratory 21 Rate Blood Pressure 110/71 O2 Sat by Pulse 96 Oximetry Medical Decision Making - Medical Decision Making Was pt. sent in by a medical professional or institution (, PA, LAND SURVEYING PARTY CHIEF, urgent care, hospital, or shelter...) When possible be specific @ -No Did you speak to anyone other than the patient for history (EMS, parent, family, police, friend...)? What history was obtained from this source @ -No Did you review nursing and triage notes (agree or disagree)? Why? @ -I reviewed and agree with nursing and triage notes Were old charts reviewed (outside hosp., previous admission, EMS record, old EKG, old radiological studies, urgent care reports/EKG's, shelter records)? Report findings @ -I reviewed prior lab work and prior charts on this patient particularly surrounding his recent surgery Differential Diagnosis (chest pain, altered mental status, abdominal pain women, abdominal pain men, vaginal bleeding, weakness, fever, dyspnea, syncope, headache, dizziness, GI bleed, back pain, seizure, CVA, palpatations, mental health, musculoskeletal)? @ -Differential Abdominal Pain Women: Appendicitis, Cholecystitis, diverticulosis, ischemic bowel, pancreatitis, hepatitis, UTI, gastroenteritis, AAA, incarcerated hernia, bowel obstruction, constipation, inflammatory bowel, hepatitis, peptic ulcer disease, splenic infarction, perforated viscus, vulvitis, ovarian torsion, PID, kidney stone, placenta abruption, this is not meant to be an all-inclusive list EKG interpreted by me (3pts min.). @ -As above X-rays interpreted by me (1pt min.). @ -None done CT interpreted by me (1pt min.). @ -He was interpreted by myself that shows obstruction versus ileus U/S interpreted by me (1pt. min.). @ -None done What testing was considered but not performed or refused? (CT, X-rays, U/S, labs)? Why? @ -None What meds were considered but not given or refused? Why? @ -None Did you discuss the management of the patient with other professionals (cesar jerez i.e. , PA, [employer]YING [employer] CHIEF, lab, RT, psych nurse, social work nurse, performance improvement coordinator, teacher, ship officer, case making machine operator)? Give summary @ -I spoke with Dr. Abbott she agreed to admit the patient Was smoking cessation discussed for >3mins.? @ -No Was critical care preformed (if so, how long)? @ -No Were there social determinants of health that impacted care today? How? (Homelessness, low income, unemployed, alcoholism, drug addiction, transportation, low edu. Level, literacy, decrease access to med. care, longterm, rehab)? @ -No Was there de-escalation of care discussed even if they declined (Discuss DNR or withdrawal of care, Hospice)? DNR status @ -No What co-morbidities impacted this encounter? (DM, HTN, Smoking, COPD, CAD, Cancer, CVA, ARF, Chemo, Hep., AIDS, mental health diagnosis, sleep apnea, morbid obesity)? @ -None Was patient admitted / discharged? Hospital course, mention meds given and route, prescriptions, significant lab abnormalities, going to OR and other pertinent info. @ -Patient was given fluids and Zofran while in the emergency department did make him feel somewhat better but he still had waves of nausea. I spoke Dr. Oleary she agreed to watch him overnight and give him a clear liquid diet and some fluid and see how he doesn't morning. Undiagnosed new problem with uncertain prognosis? @ -No Drug Therapy requiring intensive monitoring for toxicity (Heparin, Nitro, I nsulin, Cardizem)? @ -No Were any procedures done? @ -No Diagnosis/symptom? @ -Abdominal pain Acute, or Chronic, or Acute on Chronic? @ -Acute Uncomplicated (without systemic symptoms) or Complicated (systemic symptoms)? @ -Complicated Side effects of treatment? @ -No Exacerbation, Progression, or Severe Exacerbation? @ -No] Poses a threat to life or bodily function? How? (Chest pain, USA, NM, pneumonia, PE, COPD, DKA, ARF, appy, cholecystitis, CVA, Diverticulitis, Homicidal, Suicidal, threat to staff... and all critical care pts) @ -[No] Diagnosis/symptom? @ -Ileus Acute, or Chronic, or Acute on Chronic? @ -Acute Uncomplicated (without systemic symptoms) or Complicated (systemic symptoms)? @ -Complicated Side effects of treatment? @ -[none] Exacerbation, Progression, or Severe Exacerbation] @ -[no] Poses a threat to life or bodily function? @ -[no] - Lab Data Result diagrams: 12/21/22 15:27 12/21/22 15:27 Lab Results 12/21/22 12/21/22 12/21/22 Range/Units 15: 15: 15: WBC 10.2 (3.8-10.6) k/uL RBC 5.10 (4.30-5.90) m/uL Hgb 11.1 L (13.0-17.5) gm/dL Hct 38.3 L (39.0-53.0) % MCV 75.2 L (80.0-100.0) fL MCH 21.8 L (25.0-35.0) pg MCHC 29.1 L (31.0-37.0) g/dL RDW 16.9 H (11.5-15.5) % Plt Count 323 (150-450) k/uL MPV 8.1 Neutrophils % 91 % Lymphocytes % 4 % Monocytes % 4 % Eosinophils % 0 % Basophils % 0 % Neutrophils # 9.2 H (1.3-7.7) k/uL Lymphocytes # 0.4 L (1.0-4.8) k/uL Monocytes # 0.4 (0-1.0) k/uL Eosinophils # 0.0 (0-0.7) k/uL Basophils # 0.0 (0-0.2) k/uL Hypochromasia Marked Anisocytosis Slight Microcytosis Slight Sodium 142 (137-145) mmol/L Potassium 3.4 L (3.5-5.1) mmol/L Chloride 94 L (98-107) mmol/L Carbon Dioxide 38 H (22-30) mmol/L Anion Gap 10 mmol/L BUN 11 (9-20) mg/dL Creatinine 0.66 (0.66-1.25) mg/dL Est GFR (CKD-EPI)AfAm >90 (>60 ml/min/1.73 sqM) Est GFR (CKD-EPI)NonAf >90 (>60 ml/min/1.73 sqM) Glucose 120 H (74-99) mg/dL Plasma Lactic Acid Adrien 1.3 (0.7-2.0) mmol/L Calcium 9.4 (8.4-10.2) mg/dL Total Bilirubin 0.3 (0.2-1.3) mg/dL AST 45 (17-59) U/L ALT 52 H (4-49) U/L Alkaline Phosphatase 81 (38-126) U/L Total Protein 6.3 (6.3-8.2) g/dL Albumin 3.8 (3.5-5.0) g/dL Amylase 62 (30-110) U/L Lipase 34 (23-300) U/L Disposition Clinical Impression: Abdominal pain, Ileus Disposition: ADMITTED IP TO THIS [facility] Referrals: Sunil Warren MD [Primary Care Provider] - 1-2 days Time of Disposition: 16:24
[2022-12-21 15:48] LABS: Anisocytosis Slight; Basophils % (A) 0 %; Eosinophils % (A) 0 %; HCT 38.3 % (39.0-53.0); HGB 11.1 gm/dL (13.0-17.5); Hypochromasia Marked; Lymphocytes # (A) 0.4 k/uL (1.0-4.8); Lymphocytes % (A) 4 %; MCH 21.8 pg (25.0-35.0); MCHC 29.1 g/dL (31.0-37.0); MCV 75.2 fL (80.0-100.0); Mean Platelet Volume 8.1; Microcytosis Slight; Monocytes # (A) 0.4 k/uL (0-1.0); Monocytes % (A) 4 %; Neutrophils # (A) 9.2 k/uL (1.3-7.7); Neutrophils % (A) 91 %; Platelet Count 323 k/uL (150-450); RDW 16.9 % (11.5-15.5); WBC 10.2 k/uL (3.8-10.6)
[2022-12-21 15:56] LABS: ALT 52 U/L (4-49); AST 45 U/L (17-59); African American GFR (CKD) >90 (>60 ml/min/1.73 sqM); Albumin 3.8 g/dL (3.5-5.0); Alkaline Phosphatase 81 U/L (38-126); Amylase 62 U/L (30-110); Blood Urea Nitrogen 11 mg/dL (9-20); Calcium 9.4 mg/dL (8.4-10.2); Chloride 94 mmol/L (98-107); Glucose 120 mg/dL (74-99); Lipase 34 U/L (23-300); Non-African American GFR(CKD) >90 (>60 ml/min/1.73 sqM); Potassium 3.4 mmol/L (3.5-5.1); Sodium 142 mmol/L (137-145); Total Bilirubin 0.3 mg/dL (0.2-1.3); Total Protein 6.3 g/dL (6.3-8.2)
--- NOTE | 2022-12-21 15:57 | CT ---
EXAMINATION TYPE: CT abdomen pelvis wo con DATE OF EXAM: 12/21/2022 COMPARISON: 12/10/2022 HISTORY: post op abd surgery, vomiting. CT DLP: 1283.9 mGycm Examination of the solid and hollow viscera is limited given the lack of contrast. FINDINGS: LUNG BASES: No evidence for nodule. No evidence for infiltrate. Stable hiatal hernia. LIVER/GB: The gallbladder is unremarkable. No space-occupying hepatic lesion. PANCREAS: No pancreatic mass identified. No inflammatory process seen. SPLEEN: No evidence for splenomegaly. No intrasplenic lesions seen. ADRENALS: No adrenal nodules identified. No evidence for thickening. KIDNEYS: No evidence for renal mass. No nephrolithiasis. No hydronephrosis. BOWEL: There is dilated small bowel measuring up to 3.2 cm extending distally however there is normal ized distal ileum. There appear to be changes of partial distal small bowel resection and appendectom y. I do not see evidence for an abnormal collection or free air. The findings may reflect ileus or lo w-grade distal partial obstruction. Colonic bowel is of normal caliber. Lymph nodes: No evidence for adenopathy greater than 1 cm. Abdominal aorta: Atheromatous changes seen. No evidence for aneurysm. Genital organs: No significant abnormality. Other: No significant abnormality. IMPRESSION: 1. Mildly Dilated small bowel with normalization of the distal small bowel may reflect ileus versus l ow-grade partial obstruction. Correlate clinically and progress studies are recommended. Postoperativ e changes as noted above without evidence for abscess or leak.
[2022-12-21 16:02] LABS: Anion Gap 10 mmol/L; Carbon Dioxide 38 mmol/L (22-30)
[2022-12-21] MEDS ORDERED: SODIUM CHLORIDE 0.9% 1,000 ML IV ONE (16:25)
[2022-12-21] MEDS ORDERED: PANTOPRAZOLE 40 MG/10 ML VIAL IVP PRN (20:26)
[2022-12-21] MEDS ORDERED: PANTOPRAZOLE 40 MG/10 ML VIAL IVP ONE (20:29)
[2022-12-22] MEDS: MELOXICAM 7.5 MG TAB PO SCH ×2 (07:57→21:34)
[2022-12-22] MEDS: MONTELUKAST 10 MG TAB PO SCH (07:57)
[2022-12-22] MEDS: PANTOPRAZOLE 40 MG/10 ML VIAL IVP SCH ×2 (08:00→21:33)
[2022-12-22] MEDS: IPRATROPIUM-ALBUTEROL 3 ML NEB INHALATION SCH ×4 (08:05→22:01)
[2022-12-22] MEDS ORDERED: POTASSIUM CHLORIDE ER 20 MEQ TAB.ER PO STA (08:28)
[2022-12-22] MEDS: METOCLOPRAMIDE 5 MG/ML 2 ML VIAL IVP SCH ×4 (08:49→23:00)
[2022-12-22] MEDS: SODIUM CHLORIDE 0.9% 1,000 ML IV SCH ×2 (08:50→18:23)
[2022-12-22 09:23] LABS: African American GFR (CKD) >90 (>60 ml/min/1.73 sqM); Anion Gap 6 mmol/L; Blood Urea Nitrogen 15 mg/dL (9-20); Calcium 8.5 mg/dL (8.4-10.2); Carbon Dioxide 39 mmol/L (22-30); Chloride 94 mmol/L (98-107); Glucose 124 mg/dL (74-99); Non-African American GFR(CKD) >90 (>60 ml/min/1.73 sqM); Potassium 3.2 mmol/L (3.5-5.1); Sodium 139 mmol/L (137-145)
--- NOTE | 2022-12-22 13:42 | P.GSHP ---
History of Present Illness H&P Date: 12/22/22 CHIEF COMPLAINT: Abdominal pain HISTORY OF PRESENT ILLNESS: This is a 67-year-old male who presented to the hospital with complaint of abdominal pain, bloating and vomiting for the past 21 hours. He reports that he did have 2 bowel movements at rehab. He did have a good bowel movement this morning. He's had some improvement of his pain since the bowel movements. He had a computed tomography scan completed the had shown ileus versus a low-grade small bowel obstruction. Patient is status post robotic small bowel resection for Meckel's diverticulitis and an appendectomy on 12/14/2022. He has been started on a clear liquid diet. He does report his appetite is decreased. He did have some bloating after eating. PAST MEDICAL HISTORY: See list. PAST SURGICAL HISTORY: See list. MEDICATIONS: See list. ALLERGIES: See list. SOCIAL HISTORY: No illicit drug use. REVIEW OF SYSTEMS: CONSTITUTIONAL: Denies fever or chills. HEENT: Denies blurred vision, vision changes, or eye pain. Denies hemoptysis ENDOCRINE: Denies heat or cold intolerance. CARDIOVASCULAR: Denies chest pain or pressure. RESPIRATORY: No shortness of breath. GASTROINTESTINAL: Please refer to HPI is unremarkable NEURO: Denies history of seizures. PSYCH: No depression or suicidal ideation HEMATOLOGIC: Denies bleeding disorders. LYMPHATIC: The patient denies any lumps and bumps around the neck. GENITOURINARY: Denies any blood in urine or increased urinary frequency. MUSCULOSKELETAL: Denies myalgias. Denies joint swelling. Denies decreased range of motion beyond patients baseline. SKIN: Denies pruitis. Denies rash. PHYSICAL EXAM: VITAL SIGNS: Reviewed GENERAL: Well-developed in no acute distress. HEENT: No sclera icterus. Extraocular movements grossly intact. Moist buccal mucosa. Head is atraumatic, normocephalic. Hears conversational speech. No nasal drainage. NECK: Supple without lymphadenopathy. CHEST: Non-labored respirations and equal bilateral excursions. CARDIOVASCULAR: Palpable 2+ radial pulses. ABDOMEN: Distended mild diffuse tenderness MUSCULOSKELETAL: No clubbing or cyanosis. NEUROLOGIC: No focal or lateralizing signs. Cranial nerves II through XII grossly intact. PSYCH: Appropriate affect. Alert and oriented to person, place and time. SKIN: Well perfused. Good skin turgor. LABORATORY DATA: WBC is 10.2 hgb 11.1 platelets 323 Sodium is 139 potassium 3.2 creatinine 0.70 IMAGING: Computed tomography scan of the pelvis mildly dilated small bowel with norm alization of the distal small bowel may reflect ileus versus low-grade partial obstruction. Correlate clinically and progress studies are recommended. Postoperative changes are notable without any evidence for abscess or leak. ASSESSMENT: 1. Postoperative ileus 2. 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 Hypokalemia PLAN: -Continue clear liquid diet -Add Reglan for ileus -Continue IV fluids -Replace potassium and continue to monitor electrolytes -Encourage patient to ambulate -GI prophylaxis Protonix and DVT prophylaxis subcu heparin Physician Terrazzo Finisher note has been reviewed by physician. Signing provider agrees with the documented findings, assessment, and plan of care. Past Medical History Past Medical History: COPD, Pneumonia Additional Past Medical History / Comment(s): Home oxygen at 3-4L?[place] ATC, bronchitis, R lung lesion/pt states attempted to biopsy but failed, chronic cervical/lumbar back pain, R upper quadrant "lump", neck abscesses, hiatal hernia, gastritis, diverticular dx, benign colon polyp History of Any Multi-Drug Resistant Organisms: None Reported Past Surgical History: Orthopedic Surgery Additional Past Surgical History / Comment(s): Attempted L lung bx/failed per pt, EGD, colonoscopies/benign polypectomy, R upper shoulder I&D sebacceous cyst., L ankle fx with ORIF/hardware. Past Anesthesia/Blood Transfusion Reactions: No Reported Reaction Past Psychological History: No Psychological Hx Reported Additional Psychological History / Comment(s): Pt resides at [facility]. He has a cane and walker but does not currently use them. He has home oxygen. He no longer drives, his brother takes him to [email or web address]. Smoking Status: Former smoker Past Alcohol Use History: Occasional Additional Past Alcohol Use History / Comment(s): Pt started smoking in 1972 and quit in 2019. He drinks beer nearly daily, 4-5 cans per day. Past Drug Use History: None Reported - Past Family History Mother Family Medical History: Cancer Additional Family Medical History / Comment(s): Mother had metastatic cancer, primary unknown to pt. Father Family Medical History: Cancer Additional Family Medical History / Comment(s): Colon cancer. Medications and Allergies Home Medications Medication Instructions Recorded Confirmed Type Montelukast Sodium [Singulair] 10 mg PO DAILY@0800 11/04/20 12/21/22 History buPROPion HCL [buPROPion HCL SR] 150 mg PO BID@0800,2100 11/04/20 12/21/22 History Doxazosin [Cardura] 1 mg PO HS 11/20/21 12/21/22 History Furosemide [Lasix] 40 mg PO DAILY@0800 11/20/21 12/21/22 History Famotidine [Pepcid] 20 mg PO DAILY@0800 12/10/22 12/21/22 History Fluticasone/Umeclidin/Vilanter 1 puff INHALATION RT-DAILY@0800 12/10/22 12/21/22 History [Shiv Ellipta 100-62.5-25] Meloxicam [Mobic] 7.5 mg PO BID@0800,2100 12/10/22 12/21/22 History Pantoprazole Sodium [Protonix] 40 mg PO BID@0800,1700 12/10/22 12/21/22 History Acetaminophen Tab [Tylenol] 1,000 mg PO Q6HR PRN #30 tablet 12/16/22 12/21/22 Rx Atorvastatin [Lipitor] 20 mg PO HS #30 tab 12/18/22 12/21/22 Rx Ipratropium-Albuterol Nebulize 3 ml INHALATION RT-QID 30 Days 12/18/22 12/21/22 Rx [Duoneb 0.5 mg-3 mg/3 ml Soln] #120 dose Budesonide-Formot 160-4.5 Mcg 2 puff INHALATION RT-BID@0800,1700 12/21/22 12/21/22 History [Symbicort 160-4.5 Mcg Inhaler] Maalox Plus Suspension 30 ml PO Q6H PRN 12/21/22 12/21/22 History 663-699-01op/5ml Magnesium Hydroxide [Milk of 7,200 mg PO DAILY PRN 12/21/22 12/21/22 History Magnesia Concentrate] Na Phos,M-B/Na Phos,Di-Ba [Fleet 133 ml RECTAL ONCE PRN 05/22/23 05/22/23 History Adult] Ondansetron [Zofran] 4 mg PO Q6H PRN 12/21/22 12/21/22 History bisacodyL [Dulcolax] 10 mg RECTAL DAILY PRN 12/21/22 12/21/22 History Allergies Allergy/AdvReac Type Severity Reaction Status Date / Time No Known Allergies Allergy Verified 12/21/22 16:46 Surgical - Exam Vital Signs Temp Pulse Resp BP Pulse Ox 99.5 F 94 21 110/71 96 12/21/22 14:58 12/21/22 14:58 12/21/22 14:58 12/21/22 14:58 12/21/22 14:58 Results - Labs 12/21/22 15:27 12/22/22 08:47 Abnormal Lab Results - Last 24 Hours (Table) 12/21/22 12/21/22 12/22/22 Range/Units 15:27 15:27 08:47 Hgb 11.1 L (13.0-17.5) gm/dL Hct 38.3 L (39.0-53.0) % MCV 75.2 L (80.0-100.0) fL MCH 21.8 L (25.0-35.0) pg MCHC 29.1 L (31.0-37.0) g/dL RDW 16.9 H (11.5-15.5) % Neutrophils # 9.2 H (1.3-7.7) k/uL Lymphocytes # 0.4 L (1.0-4.8) k/uL Potassium 3.4 L 3.2 L (3.5-5.1) mmol/L Chloride 94 L 94 L (98-107) mmol/L Carbon Dioxide 38 H 39 H (22-30) mmol/L Glucose 120 H 124 H (74-99) mg/dL ALT 52 H (4-49) U/L Diabetes panel 12/21/22 12/22/22 Range/Units 15:27 08:47 Sodium 142 139 (137-145) mmol/L Potassium 3.4 L 3.2 L (3.5-5.1) mmol/L Chloride 94 L 94 L (98-107) mmol/L Carbon Dioxide 38 H 39 H (22-30) mmol/L BUN 11 15 (9-20) mg/dL Creatinine 0.66 0.70 (0.66-1.25) mg/dL Glucose 120 H 124 H (74-99) mg/dL Calcium 9.4 8.5 (8.4-10.2) mg/dL AST 45 (17-59) U/L ALT 52 H (4-49) U/L Alkaline Phosphatase 81 (38-126) U/L Total Protein 6.3 (6.3-8.2) g/dL Albumin 3.8 (3.5-5.0) g/dL Calcium panel 12/21/22 12/22/22 Range/Units 15: 08:47 Calcium 9.4 8.5 (8.4-10.2) mg/dL Albumin 3.8 (3.5-5.0) g/dL Pituitary panel 12/21/22 12/22/22 Range/Units 15: 08:47 Sodium 142 139 (137-145) mmol/L Potassium 3.4 L 3.2 L (3.5-5.1) mmol/L Chloride 94 L 94 L (98-107) mmol/L Carbon Dioxide 38 H 39 H (22-30) mmol/L BUN 11 15 (9-20) mg/dL Creatinine 0.66 0.70 (0.66-1.25) mg/dL Glucose 120 H 124 H (74-99) mg/dL Calcium 9.4 8.5 (8.4-10.2) mg/dL Adrenal panel 12/21/22 12/22/22 Range/Units 15: 08:47 Sodium 142 139 (137-145) mmol/L Potassium 3.4 L 3.2 L (3.5-5.1) mmol/L Chloride 94 L 94 L (98-107) mmol/L Carbon Dioxide 38 H 39 H (22-30) mmol/L BUN 11 15 (9-20) mg/dL Creatinine 0.66 0.70 (0.66-1.25) mg/dL Glucose 120 H 124 H (74-99) mg/dL Calcium 9.4 8.5 (8.4-10.2) mg/dL Total Bilirubin 0.3 (0.2-1.3) mg/dL AST 45 (17-59) U/L ALT 52 H (4-49) U/L Alkaline Phosphatase 81 (38-126) U/L Total Protein 6.3 (6.3-8.2) g/dL Albumin 3.8 (3.5-5.0) g/dL
[2022-12-22] MEDS: SIMETHICONE 80 MG CHEWABLE PO SCH ×2 (16:33→21:33)
[2022-12-22] MEDS: HEPARIN SODIUM,PORCINE/PF 5,000 UNIT/0.5 ML SYRINGE SQ SCH (21:33)
[2022-12-22] MEDS: HYDROmorphone 1 MG/ML 1 ML SYRINGE IVP PRN (21:33)
--- NOTE | 2022-12-22 23:17 | HP ---
HISTORY AND PHYSICAL CHIEF COMPLAINT: Abdominal pain and distention. HISTORY OF PRESENT ILLNESS: This is another recent admission for this 67-year-old white male. He was just in the hospital the last week for Meckel's diverticulitis. He was taken to the operating room, where this was removed. Postoperatively, he seemed to be doing well, and he was transferred to [facility] for rehab. I received a call that he was complaining of fairly severe abdominal pain with distention and vomiting, and he came back in. ER studies suggest that he either has an ileus or a bowel obstruction. REVIEW OF SYSTEMS: He is awake and alert. He denies chest pain, shortness of breath, fever, chills, etc. He only complains of the pain. He has not been passing gas or stool. Review of systems is otherwise unremarkable. Past medical history, family history, and personal and social histories are all otherwise unremarkable and unchanged from his admission last week. PHYSICAL EXAMINATION: VITAL SIGNS: Blood pressure is 145/87 with a pulse of 86, respirations of 34, and he is afebrile. GENERAL: He appeared to be somewhat uncomfortable. ABDOMEN: Quite distended. HEAD, EARS, EYES, NOSE, MOUTH, AND THROAT: Normal. CHEST: Clear, but breath sounds are poor due to his emphysema. CARDIAC: Normal. ABDOMEN: Very protuberant and distended, and he had generalized abdominal tenderness throughout. There were no definite masses. Bowel sounds were heard. EXTREMITIES: Normal. RECTAL: Not performed. NEUROLOGIC: He is intact. IMPRESSION: He is admitted to the hospital with diagnoses of: 1. Abdominal pain with vomiting. 2. Possible ileus. 3. Possible small bowel obstruction. 4. Status post recent resection of Meckel's diverticulum. 5. Chronic obstructive pulmonary disease. PLAN: 1. Bed rest. 2. Follow with Surgery. MMODL / IJN: [id number] /
--- NOTE | 2022-12-22 23:32 | PN ---
PROGRESS NOTE DATE OF SERVICE: 12/22/2022 CHIEF COMPLAINT: Abdominal pain and distention. HISTORY OF PRESENT ILLNESS: This gentleman is doing fairly well. He is still complaining of abdominal distention and pain. However, he has not vomited. States he also has been passing gas and has small bowel movement. PHYSICAL EXAMINATION: ABDOMEN: He is still quite distended, and he has generalized mild tenderness without rebound. CHEST: Clear. CARDIAC: Normal. IMPRESSION: 1. Abdominal pain. 2. Probable ileus. 3. Possible small bowel obstruction. 4. Chronic obstructive pulmonary disease. PLAN: Continue to monitor his bowel activity. MMODL / IJN: [id number] /
[2022-12-23] MEDS: SODIUM CHLORIDE 0.9% 1,000 ML IV SCH (05:00)
[2022-12-23] MEDS: METOCLOPRAMIDE 5 MG/ML 2 ML VIAL IVP SCH ×3 (05:01→19:00)
[2022-12-23 09:06] LABS: African American GFR (CKD) 122.3 (60.0-200.0); Anion Gap 12.5 mmol/L (10.00-18.00); BUN/Creat Ratio 21.67 Ratio (12.00-20.00); Calcium 8.3 mg/dL (8.7-10.3); Carbon Dioxide 29.5 mmol/L (20.0-27.5); Magnesium 1.9 mg/dL (1.5-2.4); Non-African American GFR(CKD) 105.5 (60.0-200.0); Potassium 3.5 mmol/L (3.5-5.5)
[2022-12-23] MEDS: SIMETHICONE 80 MG CHEWABLE PO SCH ×3 (09:07→20:30)
[2022-12-23] MEDS: MELOXICAM 7.5 MG TAB PO SCH ×2 (09:07→20:29)
[2022-12-23] MEDS: MONTELUKAST 10 MG TAB PO SCH (09:07)
[2022-12-23] MEDS: PANTOPRAZOLE 40 MG/10 ML VIAL IVP SCH ×2 (09:08→20:30)
[2022-12-23] MEDS: HEPARIN SODIUM,PORCINE/PF 5,000 UNIT/0.5 ML SYRINGE SQ SCH ×2 (09:08→20:29)
[2022-12-23] MEDS: ONDANSETRON 4 MG/2 ML VIAL IVP PRN (09:19)
[2022-12-23] MEDS: IPRATROPIUM-ALBUTEROL 3 ML NEB INHALATION SCH ×4 (09:44→20:13)
[2022-12-23] MEDS ORDERED: POTASSIUM CHLORIDE ER 20 MEQ TAB.ER PO STA (09:58)
--- NOTE | 2022-12-23 10:49 | P.PN ---
Subjective Progress Note Date: 12/23/22 CHIEF COMPLAINT: Ileus HISTORY OF PRESENT ILLNESS: Patient complains of still feeling distended and bloated. He does report nausea after only eating the popsicles. He is having flatus. Last bowel movement was yesterday morning. He feels that he is not voiding completely. Afebrile. Sodium 141 potassium is up from 3.2-3.5 creatinine 0.6 magnesium 1.9 PHYSICAL EXAM: VITAL SIGNS: Reviewed GENERAL: Well-developed in no acute distress. HEENT: No sclera icterus. Extraocular movements grossly intact. Moist buccal mucosa. Head is atraumatic, normocephalic. Hears conversational speech. No nasal d rainage. NECK: Supple without lymphadenopathy. CHEST: Non-labored respirations and equal bilateral excursions. CARDIOVASCULAR: Palpable 2+ radial pulses. ABDOMEN: distended. tender lower mid abdomen below umbilicus MUSCULOSKELETAL: No clubbing or cyanosis. NEUROLOGIC: No focal or lateralizing signs. Cranial nerves II through XII grossly intact. PSYCH: Appropriate affect. Alert and oriented to person, place and time. SKIN: Well perfused. Good skin turgor. ASSESSMENT: 1. Postoperative ileus 2. 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 Hypokalemia 4. History of COPD PLAN: -Continue to replace potassium and monitor -Check postvoid residual to monitor for urinary retention -Continue clear liquid diet -Encouraged patient to ambulate -Add Ensure clear for protein supplement -GI prophylaxis Protonix and DVT prophylaxis subcu heparin Physician Casino Floor Supervisor note has been reviewed by physician. Signing provider agrees with the documented findings, assessment, and plan of care. Objective - Vital Signs Vital signs: Vital Signs Temp 98 F 12/23/22 07:22 Pulse 76 12/23/22 09:56 Resp 22 12/23/22 07:22 BP 111/66 12/23/22 07:22 Pulse Ox 96 12/23/22 09:47 FiO2 Intake & Output 12/22/22 12/23/22 12/23/22 18:59 06:59 18:59 Output Total 280 Balance -280 Output: Urine 280 Other: # Voids 4 - Labs CBC & Chem 7: 12/21/22 15:27 12/23/22 04:23 Labs: Abnormal Lab Results - Last 24 Hours (Table) 12/23/22 Range/Units 04:23 Carbon Dioxide 29.5 H (20.0-27.5) mmol/L BUN/Creatinine Ratio 21.67 H (12.00-20.00) Ratio Calcium 8.3 L (8.7-10.3) mg/dL
[2022-12-23] MEDS ORDERED: MAG HYDROX/AL HYDROX/SIMETH 30 ML CUP PO PRN (18:12)
[2022-12-23] MEDS ORDERED: bisacodyL 10 MG SUPP RECTAL PRN (18:12)
[2022-12-23] MEDS: ACETAMINOPHEN TAB 500 MG TAB PO PRN (19:00)
[2022-12-23] MEDS ORDERED: IPRATROPIUM-ALBUTEROL 3 ML NEB INHALATION SCH (20:00)
[2022-12-23] MEDS: buPROPion SR 150 MG TABLET.ER PO SCH (20:30)
[2022-12-23] MEDS: DOXAZOSIN 1 MG TAB PO SCH (20:30)
--- NOTE | 2022-12-23 21:43 | CDI ---
Documentation Clarification Form Date: 12/23/2022 9:30:48 PM From: Meagan Figueredo RN CCDS Phone: [phone] Admit Date: 12/21/2022 4:25:00 PM Patient Name: Wesley Alvarado Visit Number: [id number] Discharge Date: ATTENTION: The Clinical Documentation Specialists (CDI) and [facility] Coding Staff appreciate your assistance in clarifying documentation. Please respond to the clarification below the line at the bottom and electronically sign. The CDI & [facility] Coding staff will review the response and follow-up if needed. Please note: Queries are made part of the Legal Health Record. If you have any questions, please contact the author of this message via ITS. Dr. Qi Chapa The patient has a history of Home oxygen at 3-4L nasal cannula ATC, 12/22, Surgical H&P. Based on this information and the findings below, is there an additional diagnosis that is clinically appropriate for this patient? History/Risk Factors: 67-year- old male presents with abdominal pain, vomiting and distended abdomen. Medical History: COPD, Home oxygen ATC and recent robotic small bowel resection. 12/22, Surgical H&P. Tobacco use: Started smoking in 1972 and quit in 1971 Home oxygen: at 3-4L nasal cannula ATC Clinical Indicators: Vital signs: 12/21 B/P 110/71; HR 94; Temp 99.5 F Oral; RR 21; SpO2 96% 3L nasal cannula Lung/Breathing assessment: 12/22, H&P Non labored respirations and equal bilateral excursions Treatment: Singulair daily; Symbicort 2puff Inhalation BID Breathing tx: Duobneb Inhalation QID CUCO Oxygen Nasal cannula 3L and 2L Is there an additional diagnosis that is clinically appropriate for this patient? [ X ] Chronic Respiratory Failure [ ] Other Diagnosis, please specify [ ] Unable to determine (Template Last Revised: September 2020) [ X ] Chronic Respiratory Failure MTDD
[2022-12-24] MEDS: METOCLOPRAMIDE 5 MG/ML 2 ML VIAL IVP SCH ×5 (01:54→21:19)
[2022-12-24] MEDS: SODIUM CHLORIDE 0.9% 1,000 ML IV SCH ×4 (06:00→21:30)
[2022-12-24] MEDS ORDERED: PANTOPRAZOLE 40 MG TABLET PO SCH (08:00)
[2022-12-24] MEDS: IPRATROPIUM-ALBUTEROL 3 ML NEB INHALATION SCH ×4 (09:07→21:36)
[2022-12-24] MEDS: SYMBICORT 160-4.5 MCG INHALER INHALATION SCH ×2 (09:08→21:36)
[2022-12-24] MEDS: buPROPion SR 150 MG TABLET.ER PO SCH ×2 (09:24→21:20)
[2022-12-24] MEDS: SIMETHICONE 80 MG CHEWABLE PO SCH ×3 (09:24→21:27)
[2022-12-24] MEDS: PANTOPRAZOLE 40 MG/10 ML VIAL IVP SCH ×2 (09:24→21:19)
[2022-12-24] MEDS: MELOXICAM 7.5 MG TAB PO SCH ×2 (09:24→21:20)
[2022-12-24] MEDS: MONTELUKAST 10 MG TAB PO SCH (09:24)
[2022-12-24] MEDS: HEPARIN SODIUM,PORCINE/PF 5,000 UNIT/0.5 ML SYRINGE SQ SCH ×2 (09:25→21:19)
[2022-12-24] MEDS: FAMOTIDINE 20 MG TAB PO SCH (09:25)
--- NOTE | 2022-12-24 09:27 | PN ---
PROGRESS NOTE DATE OF SERVICE: 12/23/2022 CHIEF COMPLAINT: Abdominal pain and distention. HISTORY OF PRESENT ILLNESS: This gentleman is still complaining of having abdominal pain with distention. He is having bowel movements. He is also complaining of low back pain. PHYSICAL EXAMINATION: ABDOMEN: Distended. Bowel sounds are not heard. CHEST: Clear. CARDIAC: Normal. IMPRESSION: 1. Status post laparoscopic resection of Meckel's diverticulum. 2. Abdominal pain and bloating. PLAN: Continue to follow with Surgery. He is having bowel movements and passing gas. MMODL / IJN: [id number] /
[2022-12-24] MEDS: ACETAMINOPHEN TAB 500 MG TAB PO PRN (09:32)
[2022-12-24 11:15] LABS: African American GFR (CKD) 125.5 (60.0-200.0); Anion Gap 10.9 mmol/L (10.00-18.00); BUN/Creat Ratio 16.47 Ratio (12.00-20.00); Blood Urea Nitrogen 9.3 mg/dL (9.0-27.0); Calcium 8.3 mg/dL (8.7-10.3); Non-African American GFR(CKD) 108.3 (60.0-200.0); Potassium 3.5 mmol/L (3.5-5.5)
--- NOTE | 2022-12-24 15:17 | XR ---
EXAMINATION TYPE: XR abdomen 2V DATE OF EXAM: 12/24/2022 3:09 PM INDICATION: Patient age:Male; 67 years old; Reason for study: abdominal distention; COMPARISON: 12/17/2022. TECHNIQUE: Two views of the abdomen were obtained. FINDINGS: Gaseous distention of bowel throughout the abdomen and small bowel loops up to 5.5 cm in di lation. There is no evidence for organomegaly or pneumoperitoneum. The osseous structures are intact . Calcification project over the expected location of the urinary bladder. Fecal material and gas ar e demonstrated throughout the colon and rectum. IMPRESSION: Gaseous dilation of compatible with postop ileus. Not significantly changed from prior 12/17/2022
[2022-12-24] MEDS ORDERED: POTASSIUM CHLORIDE ER 20 MEQ TAB.ER PO STA (15:44)
--- NOTE | 2022-12-24 15:46 | P.PN ---
Subjective Progress Note Date: 12/24/22 CHIEF COMPLAINT: Ileus HISTORY OF PRESENT ILLNESS: Patient reports that he is feeling better. His abdomen rate remains distended. He had 2 bowel movements this morning. He is having flatus. Denies any nausea. He is requesting advancement of his diet. He is urinating without difficulty. He denies any abdominal pain. Diet was advanced to full liquids. Patient is slightly more distended this afternoon while rounding with Dr. Chapa. Still reports no abdominal pain. Afebrile. Sodium 140 potassium is 3.5 creatinine 0.6 PHYSICAL EXAM: VITAL SIGNS: Reviewed GENERAL: Well-developed in no acute distress. HEENT: No sclera icterus. Extraocular movements grossly intact. Moist buccal mucosa. Head is atraumatic, normocephalic. Hears conversational speech. No nasal drainage. NECK: Supple without lymphadenopathy. CHEST: Non-labored respirations and equal bilateral excursions. CARDIOVASCULAR: Palpable 2+ radial pulses. ABDOMEN: distended. Nontender tympanic MUSCULOSKELETAL: No clubbing or cyanosis. NEUROLOGIC: No focal or lateralizing signs. Cranial nerves II through XII taylor ssly intact. PSYCH: Appropriate affect. Alert and oriented to person, place and time. SKIN: Well perfused. Good skin turgor. ASSESSMENT: 1. Postoperative ileus 2. 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 Hypokalemia 4. History of COPD PLAN: -Check abdominal x-ray -Add Entereg -Continue full liquids -Continue to monitor electrolytes -Replace potassium -Encouraged patient to ambulate -Continue ensure clear, protein supplement -GI prophylaxis Protonix and DVT prophylaxis subcu heparin Physician Environmental Sampling Technician note has been reviewed by physician. Signing provider agrees with the documented findings, assessment, and plan of care. Objective - Vital Signs Vital signs: Vital Signs Temp 98.2 F 12/24/22 07:24 Pulse 84 12/24/22 12:53 Resp 22 12/24/22 08:00 BP 109/62 12/24/22 07:24 Pulse Ox 97 12/24/22 09:11 FiO2 Intake & Output 12/23/22 12/24/22 12/24/22 18:59 06:59 18:59 Intake Total 250 180 Output Total 395 300 Balance -395 -50 180 Intake: Oral 250 180 Output: Urine 395 300 Other: Voiding Method Toilet Urinal - Labs CBC & Chem 7: 12/21/22 15:27 12/24/22 06:55 Labs: Abnormal Lab Results - Last 24 Hours (Table) 12/24/22 Range/Units 06:55 Carbon Dioxide 28.0 H (20.0-27.5) mmol/L Calcium 8.3 L (8.7-10.3) mg/dL
[2022-12-24] MEDS: HYDROmorphone 1 MG/ML 1 ML SYRINGE IVP PRN (21:18)
[2022-12-24] MEDS: DOXAZOSIN 1 MG TAB PO SCH (21:20)
[2022-12-24] MEDS: ALVIMOPAN 12 MG CAPSULE PO SCH (21:20)
[2022-12-24] MEDS: ONDANSETRON 4 MG/2 ML VIAL IVP PRN (21:27)
[2022-12-25] MEDS: METOCLOPRAMIDE 5 MG/ML 2 ML VIAL IVP SCH ×3 (00:34→11:47)
--- NOTE | 2022-12-25 01:45 | PN ---
PROGRESS NOTE CHIEF COMPLAINT: Abdominal distention. HISTORY OF PRESENT ILLNESS: This gentleman still has distended abdomen. He is passing gas and some stool. However, he is uncomfortable and x-rays recently suggested that he still has ileus or possible obstruction. PHYSICAL EXAMINATION: VITAL SIGNS: Normal. CHEST: Demonstrates poor breath sounds due to his emphysema. CARDIAC: Normal. ABDOMEN: Distended and generally mildly tender throughout without any visceromegaly. IMPRESSION: Status post removal of Meckel's diverticula with ileus or partial small-bowel obstruction. PLAN: Continue to follow with the hope that GI function will start to return and his abdomen decompressed. MMODL / IJN: [id number] /
[2022-12-25] MEDS: HYDROmorphone 1 MG/ML 1 ML SYRINGE IVP PRN ×2 (01:53→06:15)
[2022-12-25 08:17] VITALS: BP 113/54; RESP 17; TEMP 98
[2022-12-25] MEDS: SYMBICORT 160-4.5 MCG INHALER INHALATION SCH (08:20)
[2022-12-25] MEDS: IPRATROPIUM-ALBUTEROL 3 ML NEB INHALATION SCH ×2 (08:20→12:26)
--- NOTE | 2022-12-25 08:44 | XR ---
EXAMINATION TYPE: XR abdomen 2V DATE OF EXAM: 12/25/2022 CLINICAL DATA: 67-year-old male ileus, abdominal distention, PHH COMPARISON: 12/24/2022 FINDINGS: Lung bases are clear. Dilated small bowel loops throughout with air-fluid levels. Dilatation up to 4.2 cm versus 5.3 cm, pr eviously greater degree of colonic air with small air-fluid levels throughout the colon also noted no w. Central prosthetic calcifications. No evidence for free intraperitoneal air. IMPRESSION: Visualization of some colonic air now. There are persistently dilated but improving caliber of small bowel loops throughout now measuring up to 4.2 cm versus 5.3 cm, previously. Findings suggest ongoing gradual improvement of persistent ileus.
[2022-12-25] MEDS: ALVIMOPAN 12 MG CAPSULE PO SCH (09:21)
[2022-12-25] MEDS: SODIUM CHLORIDE 0.9% 1,000 ML IV SCH (09:21)
[2022-12-25] MEDS: PANTOPRAZOLE 40 MG/10 ML VIAL IVP SCH (09:21)
[2022-12-25] MEDS: MELOXICAM 7.5 MG TAB PO SCH (09:21)
[2022-12-25] MEDS: MONTELUKAST 10 MG TAB PO SCH (09:23)
[2022-12-25] MEDS: buPROPion SR 150 MG TABLET.ER PO SCH (09:24)
[2022-12-25] MEDS: HEPARIN SODIUM,PORCINE/PF 5,000 UNIT/0.5 ML SYRINGE SQ SCH (09:26)
[2022-12-25] MEDS: SIMETHICONE 80 MG CHEWABLE PO SCH (09:27)
[2022-12-25] MEDS: FAMOTIDINE 20 MG TAB PO SCH (09:31)
[2022-12-25] MEDS: POTASSIUM CHLORIDE ER 20 MEQ TAB.ER PO SCH ×2 (09:31→12:13)
[2022-12-25 11:01] LABS: African American GFR (CKD) 124.7 (60.0-200.0); Anion Gap 8.7 mmol/L (10.00-18.00); BUN/Creat Ratio 14.02 Ratio (12.00-20.00); Calcium 8.1 mg/dL (8.7-10.3); Carbon Dioxide 27.7 mmol/L (20.0-27.5); Magnesium 1.8 mg/dL (1.5-2.4); Non-African American GFR(CKD) 107.6 (60.0-200.0); Phosphorus 2.8 mg/dL (2.4-5.1); Potassium 3.7 mmol/L (3.5-5.5)
--- NOTE | 2022-12-25 11:16 | P.DS ---
Providers Date of admission: 12/21/22 16:25 Expected date of discharge: 12/25/22 Attending physician: Qi Chapa Consults: 12/22/22 01:28 Consult Physician Routine Consulting Provider: Sunil Warren Consult Reason/Comments: medical Do you want consulting provider notified?: Yes Primary care physician: Sunil Warren Hospital Course: Overall, clinically improved. Ileus resolved. Advanced to ground diet. Images given from his surgery. Patient stable for discharge. Follow-up as outpatient. Plan - Discharge Summary Discharge Rx Participant: Yes New Discharge Prescriptions: No Action Montelukast Sodium [Singulair] 10 mg PO DAILY@0800 Doxazosin [Cardura] 1 mg PO HS Famotidine [Pepcid] 20 mg PO DAILY@0800 Pantoprazole Sodium [Protonix] 40 mg PO BID@0800,1700 Atorvastatin [Lipitor] 20 mg PO HS #30 tab Maalox Plus Suspension 143-217-62cc/5ml 30 ml PO Q6H PRN PRN Reason: Indigestion/Nausea Budesonide-Formot 160-4.5 Mcg [Symbicort 160-4.5 Mcg Inhaler] 2 puff INHALATION RT-BID@0800,1700 Ondansetron [Zofran] 4 mg PO Q6H PRN PRN Reason: Nausea And Vomiting buPROPion HCL [buPROPion HCL SR] 150 mg PO BID@0800,2100 Furosemide [Lasix] 40 mg PO DAILY@0800 Meloxicam [Mobic] 7.5 mg PO BID@0800,2100 Fluticasone/Umeclidin/Vilanter [Trelegy Ellipta 100-62.5-25] 1 puff INHALATION RT-DAILY@0800 Acetaminophen Tab [Tylenol] 1,000 mg PO Q6HR PRN #30 tablet PRN Reason: Pain Ipratropium-Albuterol Nebulize [Duoneb 0.5 mg-3 mg/3 ml Soln] 3 ml INHALATION RT-QID 30 Days #120 dose bisacodyL [Dulcolax] 10 mg RECTAL DAILY PRN PRN Reason: Constipation Magnesium Hydroxide [Milk of Magnesia Concentrate] 7,200 mg PO DAILY PRN PRN Reason: 2 days without BM Na Phos,M-B/Na Phos,Di-Ba [Fleet Adult] 133 ml RECTAL ONCE PRN PRN Reason: Constipation Discharge Medication List Montelukast Sodium [Singulair] 10 mg PO DAILY@0800 11/04/20 [History] buPROPion HCL [buPROPion HCL SR] 150 mg PO BID@0800,2100 11/04/20 [History] Doxazosin [Cardura] 1 mg PO HS 11/20/21 [History] Furosemide [Lasix] 40 mg PO DAILY@0800 11/20/21 [History] Famotidine [Pepcid] 20 mg PO DAILY@0800 12/10/22 [History] Fluticasone/Umeclidin/Vilanter [Trelegy Ellipta 100-62.5-25] 1 puff INHALATION RT-DAILY@0812/10/22 [History] Meloxicam [Mobic] 7.5 mg PO BID@0800,2100 12/10/22 [History] Pantoprazole Sodium [Protonix] 40 mg PO BID@0800,1700 12/10/22 [History] Acetaminophen Tab [Tylenol] 1,000 mg PO Q6HR PRN #30 tablet 12/16/22 [Rx] Atorvastatin [Lipitor] 20 mg PO HS #30 tab 12/18/22 [Rx] Ipratropium-Albuterol Nebulize [Duoneb 0.5 mg-3 mg/3 ml Soln] 3 ml INHALATION RT-QID 30 Days #120 dose 12/18/22 [Rx] Budesonide-Formot 160-4.5 Mcg [Symbicort 160-4.5 Mcg Inhaler] 2 puff INHALATION RT-BID@0800,1700 12/21/22 [History] Maalox Plus Suspension 122-969-49bx/5ml 30 ml PO Q6H PRN 12/21/22 [History] Magnesium Hydroxide [Milk of Magnesia Concentrate] 7,200 mg PO DAILY PRN 12/21/22 [History] Na Phos,M-B/Na Phos,Di-Ba [Fleet Adult] 133 ml RECTAL ONCE PRN 12/21/22 [History] Ondansetron [Zofran] 4 mg PO Q6H PRN 12/21/22 [History] bisacodyL [Dulcolax] 10 mg RECTAL DAILY PRN 12/21/22 [History] Follow up Appointment(s)/Referral(s): Sunil Warren MD [Primary Care Provider] - 1-2 days Franki Hagan, [NON-STAFF] - As Needed
[2022-12-25 12:28] VITALS: PULSE 88
[2022-12-25 14:57] VITALS: BMI 31.9
== END 2022-12-25 15:04 | disposition home or self-care (01) | DRG 394 ==
LOC: EC 14:53 → 4SSUR 16:25
PROVIDERS: ADMIT Surgery Plastic and Reconstructive Surgery; ATTEND Surgery Plastic and Reconstructive Surgery
DX: K91.89 Other postprocedural complications and disorders of digestive system (principal); J96.10 Chronic respiratory failure, unspecified whether with hypoxia or hypercapnia; K91.30 Postprocedural intestinal obstruction, unspecified as to partial versus complete; E87.6 Hypokalemia; J43.9 Emphysema, unspecified; G89.29 Other chronic pain; M54.2 Cervicalgia; M54.50 Low back pain, unspecified; R91.1 Solitary pulmonary nodule; K91.0 Vomiting following gastrointestinal surgery; Y83.8 Other surgical procedures as the cause of abnormal reaction of the patient, or of later complication, without mention of misadventure at the time of the procedure; Z99.81 Dependence on supplemental oxygen; Z79.51 Long term (current) use of inhaled steroids; Z79.899 Other long term (current) drug therapy; Z79.1 Long term (current) use of non-steroidal anti-inflammatories (NSAID); Z87.891 Personal history of nicotine dependence; Z87.19 Personal history of other diseases of the digestive system; Z80.0 Family history of malignant neoplasm of digestive organs
CPT/HCPCS: 36415; 74019; 74176; 80048; 80053; 82150; 83605; 83690; 83735; 84100; 85025; 87635; 94640; 94760; 96361; 96374; 96375; 99285

== ENCOUNTER → 2023-06-18 | Outpatient (CLI) | payer MEDICARE, OTHER ==
[2023-06-18 11:37] LABS: African American GFR (CKD) >90 (>60 ml/min/1.73 sqM); Blood Urea Nitrogen 22 mg/dL (9-20); Non-African American GFR(CKD) >90 (>60 ml/min/1.73 sqM)
--- NOTE | 2023-06-18 13:19 | CT ---
EXAMINATION TYPE: CT chest w con DATE OF EXAM: 06/18/2023 COMPARISON: 12/10/2022 HISTORY: f/u nodules CT DLP: 493.8 mGycm Automated exposure control for dose reduction was used. TECHNIQUE: CT scan of the chest is performed with IV Contrast, patient injected with 100 mL of Isovue 300. MIP Images are created on CT scanner and reviewed. 3D reconstructed images are created on an independent workstation and reviewed. FINDINGS: LUNGS: Diffuse emphysematous changes. Biapical pleural scarring. Areas of subsegmental consolidation involving left upper lobe and right lower lobe are improved relative to prior exam MEDIASTINUM: There are no greater than 1 cm hilar or mediastinal lymph nodes. No pericardial effusi on is seen. Pulmonary arterial system again is prominent measuring up to 3 cm suggesting pulmonary a rterial hypertension. Aortic root measures 3.8 cm and is stable compatible with ectasia or borderline aneurysm. Atherosclerotic change of the aorta and arch vessels. Mild atherosclerotic change of the c oronary arteries. Mitral calcification is noted. There is a tiny pericardial effusion OTHER: Stable underlying mild gynecomastia. Hypertrophic and degenerative changes of the spine. Ther e is a moderate hiatal hernia. There is a stable soft tissue nodule in the upper abdomen with a rim o f calcification suspicious for a aneurysm likely related to the splenic artery. IMPRESSION: 1. Diffuse emphysematous changes with findings compatible with pulmonary arterial hypertension. 2. Interval marked improvement in areas of irregular consolidation may represent sequela of prior inf ection with underlying scarring. 3. Stable 2.5 cm peripheral calcified lesion in the upper abdomen possibly related to a splenic cyst or splenic artery aneurysm. 4. Moderate-sized hiatal hernia stable.
== END | disposition home or self-care (01) ==
LOC: RADCTMAIN 10:54
PROVIDERS: ATTEND Internal Medicine Critical Care Medicine
DX: K44.9 Diaphragmatic hernia without obstruction or gangrene (principal); J43.9 Emphysema, unspecified; R91.1 Solitary pulmonary nodule
CPT/HCPCS: 82565; 84520; 71260; 36415; Q9967